=== PATIENT | male | born 1945 | race African-American/Black ===

== ENCOUNTER 2018-04-27 16:04 | Inpatient (IN) | payer OTHER ==
--- NOTE | 2018-04-27 16:57 | PDOC ---
History of Present Illness - General Chief Complaint: Wound Stated Complaint: WOUND Time Seen by Provider: 04/27/18 16:49 History Source: Patient, Jail Records, Other (Dr. Mooney) Exam Limitations: No Limitations - History of Present Illness Initial Comments: HPI: 72 y/o male presenting to [facility] ER on referral from Dr. Mooney with concern for gangrenous infection to first toe of right foot. Written orders requesting admission to Dr. Wilson service with consultation to Drs. Loyola and Lily. Pt endorses pain to the area made worse with movement of the toe. States symptoms started approx. 1 month ago and has progressively worsened. H/o of gout in the toe. Denies fevers or chills. Was evaluated at [facility] for right ankle swelling and pain to right first toe. Found to be febrile and tachycardic. Received IV antibiotics. Unknown hospital course. Pt currently a resident at [facility] PCP: Dr. Seymour [facility] Hx: - CKD s/p renal transplant, on Tacrolimus - A-fib, on ASA, Plavix, and Coumadin. Coumadin held this morning and pt received PO Vit. K - HIV, last viral load zero. Unknown CD4 count. - Gout on Allopurinol - DM - HIV - Carotid plaque - PAD s/p stenting, location unknown Past History - Past Medical History Allergies/Adverse Reactions: Allergies Allergy/AdvReac Type Severity Reaction Status Date / Time No Known Allergies Allergy Verified 04/27/18 16:26 Home Medications: Ambulatory Orders Allopurinol [Zyloprim -] 100 mg PO DAILY 04/27/18 Aspirin [ASA -] 81 mg PO DAILY 04/27/18 Atorvastatin Ca [Lipitor] 80 mg PO HS 04/27/18 Brimonidine Tartrate [Alphagan 0.2% -] 1 drop BID 04/27/18 Cinacalcet HCl [Sensipar] 60 mg PO DAILY 04/27/18 Clopidogrel Bisulfate [Plavix] 75 mg PO DAILY 04/27/18 Docusate Sodium [Colace] 100 mg PO BID 04/27/18 Emtricitabine/Tenofov Alafenam [Descovy 200-25 mg Tablet (Nf)] 1 each PO DAILY 04/27/18 Ezetimibe 10 mg PO DAILY 04/27/18 Latanoprost 0.005% Eye Drops [Xalatan 0.005% Eye Drops -] 1 drop HS 04/27/18 Losartan Potassium 25 mg PO DAILY 04/27/18 Megestrol Acetate 20 ml PO DAILY 04/27/18 Metoprolol Tartrate [Lopressor] 25 mg PO BID 04/27/18 Mycophenolate Mofetil 1,000 mg PO BID 04/27/18 Nifedipine ER [Procardia Xl -] 60 mg PO DAILY 04/27/18 Paricalcitol 1 mcg PO DAILY 04/27/18 Raltegravir [Isentress -] 400 mg PO BID 04/27/18 Tacrolimus [Astagraf Xl] 5 mg PO DAILY 04/27/18 Tacrolimus [Envarsus Xr] 4 mg PO DAILY 04/27/18 Cardiac Disorders: Yes (CAD) COPD: No HTN: Yes Other medical history: GOUT - Suicide/Smoking/Psychosocial Hx Smoking History: Former smoker Have you smoked in the past 12 months: No Information on smoking cessation initiated: No Hx Alcohol Use: No Drug/Substance Use Hx: No Review of Systems - Review of Systems Able to Perform ROS?: Yes Comments:: In addition to that documented in the HPI above, the additional ROS was obtained : Constitutional: Denies fevers or chills ENMT: Denies sore throat CV: Denies chest pain Resp: Denies SOB GI: Denies vomiting or diarrhea MSK: Per HPI *Physical Exam - Vital Signs Last Vital Signs Temp Pulse Resp BP Pulse Ox 98.8 F 82 18 121/57 L 99 04/27/18 16:20 04/27/18 16:20 04/27/18 16:20 04/27/18 16:20 04/27/18 16:20 - Physical Exam Comments: Constitutional: Non-toxic adult male in no acute distress or obvious discomfort. Found semi-fowlers. Alert and oriented x4. Answered all questions appropriately and completely. Speech was non-labored, non-pressured. Head: Normocephalic. No obvious external signs of trauma. Ears: Hearing grossly intact. Nose: No nasal discharge. Neck: Supple, trachea is midline. Cardiovascular / Chest: Irregularly irregular rate and rhythm. No murmur, rubs, clicks, or gallops. Peripheral pulses: radial pulses full. Respiratory: Breathing unlabored. Equal chest rise and fall. Clear to auscultation bilaterally. No stridor, no wheezing, no rhonchi. Neuro: Alert and oriented. Moving all four extremities spontaneously. Ext: Black necrotic tissue to tip of right great toe with proximal circular ring of devitalized tissue with purulent discharge. No erythema or cellulitic lesions. Tender to palpation. Foot with 2+ pitting edema. No porter crepitus. Psych: Affect: appropriate. Mood: normal. Moderate Sedation - Procedure Monitoring Vital Signs: Procedure Monitoring Vital Signs Temperature 98.8 F 04/27/18 16:20 Pulse Rate 82 04/27/18 16:20 Respiratory Rate 18 04/27/18 16:20 Blood Pressure 121/57 L 04/27/18 16:20 O2 Sat by Pulse Oximetry (%) 99 04/27/18 16:20 ED Treatment Course - LABORATORY CBC & Chemistry Diagram: 04/27/18 17:50 04/27/18 17:50 Medical Decision Making - Medical Decision Making *Reviewed vital signs, nursing notes, and prior visit documentation (if available). 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 Physical exam concerning for possible gangrenous versus necrotic wound to right great toe. Afebrile. Vitals unremarkable for hypotension or tachycardia. Low suspicion for sepsis. Pt is on Tacrolimus s/p renal transplant. Also HIV positive with reported zero viral load but unknown CD4 count. Telephone consult with . Requested CBC, ESR, CRP, xray of extremity , blood culture, wound culture, ID consult with Dr. Loyola, and vascular consult with Dr. Bautista. Pt to be admitted to Dr. Wilson service. 17:[address] Loyola of infectious disease service. Verbally appraised of the pts HPI, ED course, and current plan of management. Recommended Vancomycin 1g, Clindamycin 300mg q6h, Zosyn 4.5mg q8h. Also requested CD4 count and CT scan of the extremity. Will follow up labs and evaluate pt in the morning. CT of extremity remarkable for soft tissue air or gas accumulation of level of tuft of distal phalanx of the right first toe. Ordered lactic acid to further evaluate. Will obtain repeat vitals. 20:21 Second telephone conversation with Dr. Stephanian to provide interval updates. Reports ESR, CRP, WBC, and CT results. States the subcutaneous accumulation is likely air as pt does not have a fever or leukocytosis. Requests continuation of antibiotic therapy. Will evaluate the pt in the morning. 21:[address] Morris. Verbally appraised of the pts HPI, ED course, and current plan of management. Agreed to admit pt to med/surg on inpatient status. No additional ordered requested. 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
[2018-04-27] MEDS ORDERED: VANCOMYCIN 1 GM in D5W (PRE-DOCKED) 1,000 MG/250 ML IVPB ONE (17:47)
[2018-04-27] MEDS ORDERED: CLINDAMYCIN IVPB 300 MG in DEXTROSE 5%-WATER - 48 ML IVPB SCH (18:00)
[2018-04-27] MEDS: PIPERACILLIN/TAZOB 4.5 GM 4.5 GM in DEXTROSE 5%-WATER 100 ML IVPB SCH (18:00)
[2018-04-27] MEDS ORDERED: PIPERACILLIN/TAZOB 4.5 GM 4.5 GM/100 ML BAG IVPB ONE (18:04)
[2018-04-27] MEDS ORDERED: VANCOMYCIN 1 GRAM (PRE-DOCKED) 1,000 MG/250 ML BAG IVPB ONE (18:05)
[2018-04-27 18:16] LABS: BASO % 0.4 % (0-2.0); EOS % 0.6 % (0-4.5); HEMATOCRIT 29.6 % (35.4-49); HEMOGLOBIN 9.5 GM/dL (11.7-16.9); MCH 27.5 pg (25.7-33.7); MCHC 32.3 g/dl (32.0-35.9); MEAN CELL VOLUME 85.2 fl (80-96); MEAN PLT VOLUME 10.8 fl (7.5-11.1); MONO % 22.6 % (3.8-10.2); NEUT % 49.4 % (42.8-82.8); PLATELET COUNT 237 K/MM3 (134-434); RBC 3.47 M/mm3 (4.00-5.60); WHITE BLOOD COUNT 3.5 K/mm3 (4.0-10.0)
--- NOTE | 2018-04-27 18:38 | PDOC ---
Attending Attestation - Resident Resident Name: BeltranBrian - ED Attending Attestation I have performed the following: I have examined & evaluated the patient, The case was reviewed & discussed with the resident, I agree w/resident's findings & plan, Exceptions are as noted - HPI HPI: 04/27/18 18:34 72 M with h/o afib on eliquis, HIV on HAART, DM, HTN, kidney transplant, PVD s/ p LE stenting, gout, presenting to ED with infected wound of R great toe. [facility] Sent in today for IV abx and vascular/podiatry/ID consultation. Pt denies any acute changes. Denies F/C. - Physicial Exam PE: 04/27/18 18:38 Agree with resident exam - Medical Decision Making 04/27/18 18:38 72 M with gangrenous, infected R great toe. - Labs - Abx - Consult ID/vascular/podiatry - Admit
[2018-04-27 18:47] LABS: ALBUMIN 3.2 g/dl (3.4-5.0); ALK PHOS 61 U/L (45-117); ANION GAP 8 MMOL/L (8-16); BILIRUBIN,TOTAL 0.4 mg/dL (0.2-1); BLOOD UREA NITROGEN 26 mg/dL (7-18); CALCIUM 9.3 mg/dL (8.5-10.1); CHLORIDE 110 mmol/L (98-107); CO2 21 mmol/L (21-32); CREATININE 1.4 mg/dL (0.55-1.3); GLUCOSE,RANDOM 105 mg/dL (74-106); POTASSIUM 4.8 mmol/L (3.5-5.1); SGOT/AST 12 U/L (15-37); SGPT/ALT 10 U/L (13-61); SODIUM 140 mmol/L (136-145); TOT PROT 7.2 g/dl (6.4-8.2)
[2018-04-27 19:06] LABS: INR 1.21 (0.83-1.09); PROTHROMBIN TIME (PATIENT) 14.3 SEC (9.7-13.0)
[2018-04-27 19:39] LABS: PLATELET ESTIMATE ADEQUATE
[2018-04-27] MEDS: CLINDAMYCIN 300 MG PREMIX IVPB 300 MG/50 ML BAG IVPB SCH ×2 (19:59→23:38)
[2018-04-28] MEDS ORDERED: PIPERACILLIN/TAZOBACTAM 4.5 GM VIAL IVPB ONE ×3 (01:54→16:12)
[2018-04-28] MEDS ORDERED: DEXTROSE 5%-WATER 100 ML IVPB ONE ×3 (01:54→16:13)
[2018-04-28] MEDS: PIPERACILLIN/TAZOB 4.5 GM 4.5 GM in DEXTROSE 5%-WATER 100 ML IVPB SCH ×3 (02:07→18:09)
[2018-04-28] MEDS: CLINDAMYCIN 300 MG PREMIX IVPB 300 MG/50 ML BAG IVPB SCH ×2 (02:38→09:34)
[2018-04-28 07:37] LABS: BASO % 0.2 % (0-2.0); EOS % 1.1 % (0-4.5); HEMATOCRIT 28.8 % (35.4-49); HEMOGLOBIN 9.2 GM/dL (11.7-16.9); LYMPH % 30.9 % (8-40); MCH 27.2 pg (25.7-33.7); MCHC 31.8 g/dl (32.0-35.9); MEAN CELL VOLUME 85.5 fl (80-96); MEAN PLT VOLUME 10.4 fl (7.5-11.1); MONO % 27.6 % (3.8-10.2); NEUT % 40.2 % (42.8-82.8); PLATELET COUNT 240 K/MM3 (134-434); RBC 3.37 M/mm3 (4.00-5.60); RDW 18.2 % (11.9-15.9); WHITE BLOOD COUNT 3.3 K/mm3 (4.0-10.0)
[2018-04-28 08:02] LABS: ALBUMIN 2.9 g/dl (3.4-5.0); ALK PHOS 54 U/L (45-117); ANION GAP 8 MMOL/L (8-16); BILIRUBIN,TOTAL 0.5 mg/dL (0.2-1); BLOOD UREA NITROGEN 25 mg/dL (7-18); CALCIUM 9.1 mg/dL (8.5-10.1); CHLORIDE 109 mmol/L (98-107); CO2 21 mmol/L (21-32); CREATININE 1.4 mg/dL (0.55-1.3); GLUCOSE,RANDOM 86 mg/dL (74-106); POTASSIUM 4.5 mmol/L (3.5-5.1); SGOT/AST 11 U/L (15-37); SGPT/ALT 9 U/L (13-61); SODIUM 138 mmol/L (136-145); TOT PROT 6.6 g/dl (6.4-8.2)
[2018-04-28] MEDS ORDERED: PT OWN MED DRAWER 7, Y5N ONE ×2 (09:06→12:15)
[2018-04-28] MEDS: BRIMONIDINE TARTRATE 0.2% OPHTHALMIC 5 ML BOTTLE OD SCH ×2 (09:44→21:05)
[2018-04-28] MEDS: CINACALCET HCL 30 MG TAB (FP) PO SCH (09:45)
[2018-04-28] MEDS: CLOPIDOGREL BISULFATE 75 MG TABLET (FP) PO SCH (09:46)
[2018-04-28] MEDS: DOCUSATE SODIUM 100 MG CAPSULE (FP) PO SCH ×2 (09:46→21:04)
[2018-04-28] MEDS: ASPIRIN 81 MG CHEWABLE TABLETS PO SCH (09:46)
[2018-04-28] MEDS: METOPROLOL TARTRATE 50 MG TABLET (FP) PO SCH ×2 (09:46→21:03)
[2018-04-28] MEDS: LOSARTAN POTASSIUM 25 MG TABLET PO SCH (09:48)
[2018-04-28] MEDS: ALLOPURINOL 100 MG TABLET (FP) PO SCH (09:48)
[2018-04-28] MEDS: HEPARIN NA (PORCINE) 5,000 UNITS/ML 1ML VIAL SQ SCH ×3 (09:48→21:02)
[2018-04-28] MEDS: NIFEdipine E.R 60 MG TABLET (UD) PO SCH (09:49)
[2018-04-28] MEDS ORDERED: PATIENT'S OWN MEDICATION (NON-FORMULARY) (Emtricitabine/Tenofov Alafenam [Descovy 200-25 M PO SCH (10:00)
--- NOTE | 2018-04-28 10:58 | CONSULT ---
Consult Consult Specialty:: podiatry Reason for Consultation:: gangarene right big toe - History of Present Illness Chief Complaint: gangarene right big toe - History Source History Provided By: Medical Record, Caregiver, Transfer Record - Alcohol/Substance Use Hx Alcohol Use: No - Smoking History Smoking history: Former smoker Have you smoked in the past 12 months: No Home Medications - Allergies Allergies/Adverse Reactions: Allergies Allergy/AdvReac Type Severity Reaction Status Date / Time shellfish derived Allergy Verified 04/28/18 04:57 - Home Medications Home Medications: Ambulatory Orders Allopurinol [Zyloprim -] 100 mg PO DAILY 04/27/18 Aspirin [ASA -] 81 mg PO DAILY 04/27/18 Atorvastatin Ca [Lipitor] 80 mg PO HS 04/27/18 Brimonidine Tartrate [Alphagan 0.2% -] 1 drop BID 04/27/18 Cinacalcet HCl [Sensipar] 60 mg PO DAILY 04/27/18 Clopidogrel Bisulfate [Plavix] 75 mg PO DAILY 04/27/18 Docusate Sodium [Colace] 100 mg PO BID 04/27/18 Emtricitabine/Tenofov Alafenam [Descovy 200-25 mg Tablet (Nf)] 1 each PO DAILY 04/27/18 Ezetimibe 10 mg PO DAILY 04/27/18 Latanoprost 0.005% Eye Drops [Xalatan 0.005% Eye Drops -] 1 drop HS 04/27/18 Losartan Potassium 25 mg PO DAILY 04/27/18 Megestrol Acetate 20 ml PO DAILY 04/27/18 Metoprolol Tartrate [Lopressor] 25 mg PO BID 04/27/18 Mycophenolate Mofetil 1,000 mg PO BID 04/27/18 Nifedipine ER [Procardia Xl -] 60 mg PO DAILY 04/27/18 Paricalcitol 1 mcg PO DAILY 04/27/18 Raltegravir [Isentress -] 400 mg PO BID 04/27/18 Tacrolimus [Prograf] 4 mg PO DAILY 04/28/18 Tacrolimus [Prograf] 5 mg PO DAILY 04/28/18 Physical Exam Vital Signs: Vital Signs Temperature 98.6 F 04/28/18 05:44 Pulse Rate 83 04/28/18 05:44 Respiratory Rate 16 04/28/18 05:44 Blood Pressure 141/80 04/28/18 05:44 O2 Sat by Pulse Oximetry (%) 98 04/28/18 01:00 Wound/Incision: Yes: Other (+gangarene right big toe, +cellulitis, +mal odor,) Labs: CBC, BMP 04/28/18 06:30 04/28/18 06:30 Imaging - Results X-ray: Report Reviewed, Image Reviewed Cat Scan: Report Reviewed Assessment/Plan gangarene pvd Discussed with Dr. Solorio. Will clear patient after duplex study for amputation right great toe and wound debridement. awaiting clearance. betadine dressing right foot.
[2018-04-28 11:11] LABS: ANISOCYTOSIS 2+; MACROCYTOSIS 0; PLATELET ESTIMATE NORMAL; TEAR DROP CELLS 1+
[2018-04-28] MEDS: MYCOPHENOLATE MOFETIL 500 MG TABLET PO SCH ×2 (11:37→21:04)
[2018-04-28] MEDS: PARICALCITOL 1 MCG CAP PO SCH (11:37)
[2018-04-28] MEDS: MEGESTROL ACETATE 400 MG/10 ML UNIT DOSE CUP PO SCH (11:39)
[2018-04-28] MEDS: EZETIMIBE 10 MG TABLET (FP) PO SCH (11:39)
--- NOTE | 2018-04-28 11:53 | CON.ID ---
Consult Consult Specialty:: infectious diseases Referred by:: Reason for Consultation:: gzngrene of the toe with wound infection - History of Present Illness Chief Complaint: pain in the toe History of Present Illness: 72 year old male who was sent in for right great toe infection. He is a poor historian. He has history of CKD, kidney transplant, a-fib, HIV, DM, HTN, gout and PVD. He denies shortness of breath. he denies fevers or chill. He does not know the names of his transplant meds. He denies dysuria or hematuria. patient also does not know his hiv meds patient was seen by podiatry and the plan is for amputation of the toe currently patient looks s table - History Source History Provided By: Patient, Medical Record Limitations to Obtaining History: Poor Historian - Alcohol/Substance Use Hx Alcohol Use: No - Smoking History Smoking history: Former smoker Have you smoked in the past 12 months: No Home Medications - Allergies Allergies/Adverse Reactions: Allergies Allergy/AdvReac Type Severity Reaction Status Date / Time shellfish derived Allergy Verified 04/28/18 04:57 - Home Medications Home Medications: Ambulatory Orders Allopurinol [Zyloprim -] 100 mg PO DAILY 04/27/18 Aspirin [ASA -] 81 mg PO DAILY 04/27/18 Atorvastatin Ca [Lipitor] 80 mg PO HS 04/27/18 Brimonidine Tartrate [Alphagan 0.2% -] 1 drop BID 04/27/18 Cinacalcet HCl [Sensipar] 60 mg PO DAILY 04/27/18 Clopidogrel Bisulfate [Plavix] 75 mg PO DAILY 04/27/18 Docusate Sodium [Colace] 100 mg PO BID 04/27/18 Emtricitabine/Tenofov Alafenam [Descovy 200-25 mg Tablet (Nf)] 1 each PO DAILY 04/27/18 Latanoprost 0.005% Eye Drops [Xalatan 0.005% Eye Drops -] 1 drop HS 04/27/18 Metoprolol Tartrate [Lopressor] 25 mg PO BID 04/27/18 Nifedipine ER [Procardia Xl -] 60 mg PO DAILY 04/27/18 RX: Ezetimibe 10 mg PO DAILY 04/27/18 RX: Losartan Potassium 25 mg PO DAILY 04/27/18 RX: Megestrol Acetate 20 ml PO DAILY 04/27/18 RX: Mycophenolate Mofetil 1,000 mg PO BID 04/27/18 RX: Paricalcitol 1 mcg PO DAILY 04/27/18 Raltegravir [Isentress -] 400 mg PO BID 04/27/18 Tacrolimus [Prograf] 4 mg PO DAILY 04/28/18 Tacrolimus [Prograf] 5 mg PO DAILY 04/28/18 Review of Systems - Review of Systems Constitutional: reports: No Symptoms Eyes: reports: No Symptoms HENT: reports: No Symptoms Neck: reports: No Symptoms Cardiovascular: reports: No Symptoms Respiratory: reports: No Symptoms Gastrointestinal: reports: No Symptoms Genitourinary: reports: No Symptoms Musculoskeletal: reports: Joint Pain Integumentary: reports: Change in Color, Erythema, Wound, Other (gangrene rt toe ) Neurological: reports: No Symptoms Endocrine: reports: No Symptoms Hematology/Lymphatic: reports: No Symptoms Psychiatric: reports: No Symptoms Physical Exam Vital Signs: Vital Signs Temperature 97.4 F L 04/28/18 09:00 Pulse Rate 89 04/28/18 09:00 Respiratory Rate 18 04/28/18 09:00 Blood Pressure 136/74 04/28/18 09:00 O2 Sat by Pulse Oximetry (%) 98 04/28/18 01:00 Constitutional: Yes: Well Nourished, Calm, Mild Distress Eyes: Yes: Conjunctiva Clear HENT: Yes: Atraumatic, Normocephalic Neck: Yes: Supple, Trachea Midline Cardiovascular: Yes: Pulse Irregular Respiratory: Yes: Regular, CTA Bilaterally Gastrointestinal: Yes: Normal Bowel Sounds, Soft Musculoskeletal: Yes: WNL Extremities: Yes: Erythema, Other (gangrene of the rt toe) Wound/Incision: Yes: Open to air Neurological: Yes: Alert, Oriented Psychiatric: Yes: Alert, Oriented Labs: CBC, BMP 04/28/18 06:30 04/28/18 06:30 Imaging - Results Chest X-ray: Report Reviewed, Image Reviewed X-ray: Report Reviewed, Image Reviewed Cat Scan: Report Reviewed, Image Reviewed Assessment/Plan CKD kidney tranplant HIV HTN . DM cad HLD plan will start patient on abx patient will need amputation await for all cx reports will get his hiv meds--d/w pharmacy rest as per the team and podiatry
[2018-04-28] MEDS: RALTEGRAVIR POTASSIUM 400 MG TAB PO SCH ×2 (12:17→21:04)
[2018-04-28] MEDS: TACROLIMUS ANHYDROUS 5 MG CAPSULE PO SCH (12:17)
[2018-04-28] MEDS: EMTRICITABINE/TENOFOV ALAFENAM (DESCOVY) TABLET PO SCH (16:01)
--- NOTE | 2018-04-28 16:40 | CONSULT ---
Consult Consult Specialty:: Nephrology Reason for Consultation:: kidney transplant - History of Present Illness Chief Complaint: sent in for right foot infection History of Present Illness: Pt is a 72 year old male who was sent in for right great toe infection. He is a poor historian. He has history of CKD, kidney transplant, a-fib, HIV, DM, HTN, gout and PVD. He denies shortness of breath. he denies fevers or chill. he follows with a transplant healthcare financial analyst in [facility]. He does not know the names of his transplant meds. He denies dysuria or hematuria. - History Source History Provided By: Patient, Medical Record Limitations to Obtaining History: Poor Historian - Past Medical History Cardio/Vascular: Yes: HTN, Hyperlipdemia Renal/: Yes: Renal Inusuff, Other (kidney transplant) Infectious Disease: Yes: HIV - Past Surgical History Past Surgical History: Yes: AV Fistula/Graft, Kidney Transplant - Alcohol/Substance Use Hx Alcohol Use: No - Smoking History Smoking history: Former smoker Have you smoked in the past 12 months: No Home Medications - Allergies Allergies/Adverse Reactions: Allergies Allergy/AdvReac Type Severity Reaction Status Date / Time shellfish derived Allergy Verified 04/28/18 04:57 - Home Medications Home Medications: Ambulatory Orders Allopurinol [Zyloprim -] 100 mg PO DAILY 04/27/18 Aspirin [ASA -] 81 mg PO DAILY 04/27/18 Atorvastatin Ca [Lipitor] 80 mg PO HS 04/27/18 Brimonidine Tartrate [Alphagan 0.2% -] 1 drop BID 04/27/18 Cinacalcet HCl [Sensipar] 60 mg PO DAILY 04/27/18 Clopidogrel Bisulfate [Plavix] 75 mg PO DAILY 04/27/18 Docusate Sodium [Colace] 100 mg PO BID 04/27/18 Emtricitabine/Tenofov Alafenam [Descovy 200-25 mg Tablet (Nf)] 1 each PO DAILY 04/27/18 Ezetimibe 10 mg PO DAILY 04/27/18 Latanoprost 0.005% Eye Drops [Xalatan 0.005% Eye Drops -] 1 drop HS 04/27/18 Losartan Potassium 25 mg PO DAILY 04/27/18 Megestrol Acetate 20 ml PO DAILY 04/27/18 Metoprolol Tartrate [Lopressor] 25 mg PO BID 04/27/18 Mycophenolate Mofetil 1,000 mg PO BID 04/27/18 Nifedipine ER [Procardia Xl -] 60 mg PO DAILY 04/27/18 Paricalcitol 1 mcg PO DAILY 04/27/18 Raltegravir [Isentress -] 400 mg PO BID 04/27/18 Tacrolimus [Prograf] 4 mg PO DAILY 04/28/18 Tacrolimus [Prograf] 5 mg PO DAILY 04/28/18 Family Disease History - Family Disease History Family History: Denies Review of Systems - Review of Systems Constitutional: reports: No Symptoms Eyes: reports: No Symptoms HENT: reports: No Symptoms Neck: reports: No Symptoms Cardiovascular: reports: No Symptoms Respiratory: reports: No Symptoms Gastrointestinal: reports: No Symptoms Genitourinary: reports: No Symptoms Musculoskeletal: reports: No Symptoms Integumentary: reports: Other (right toe erythema) Neurological: reports: No Symptoms Endocrine: reports: No Symptoms Hematology/Lymphatic: reports: No Symptoms Psychiatric: reports: No Symptoms Physical Exam Vital Signs: Vital Signs Temperature 98.1 F 04/28/18 14:42 Pulse Rate 83 04/28/18 14:42 Respiratory Rate 18 04/28/18 14:42 Blood Pressure 120/60 04/28/18 14:42 O2 Sat by Pulse Oximetry (%) 100 04/28/18 10:00 Constitutional: Yes: Calm Eyes: Yes: Conjunctiva Clear HENT: Yes: Atraumatic Neck: Yes: Supple Cardiovascular: Yes: S1, S2 Respiratory: Yes: CTA Bilaterally Gastrointestinal: Yes: Soft Renal/: Yes: WNL, Other (graft soft and non tender) Musculoskeletal: Yes: WNL Extremities: Yes: Other (right toe ulcer) Edema: No Neurological: Yes: Oriented Psychiatric: Yes: Oriented Labs: CBC, BMP 04/28/18 06:30 04/28/18 06:30 Laboratory Tests 04/27/18 04/27/18 04/28/18 17:50 17:50 06:30 WBC 3.5 L 3.3 L Hgb 9.5 L 9.2 L Plt Count 237 240 Sodium Potassium BUN 26 H Creatinine 1.4 H 04/28/18 06:30 WBC Hgb Plt Count Sodium 138 Potassium 4.5 BUN 25 H Creatinine 1.4 H Imaging - Results Cat Scan: Report Reviewed Problem List - Problems (1) CKD (chronic kidney disease) Code(s): N18.9 - CHRONIC KIDNEY DISEASE, UNSPECIFIED Assessment/Plan Current Medications Generic Name Dose Route Start Last Admin Trade Name Etta PRN Reason Stop Dose Admin Allopurinol 100 mg 04/28/18 10:00 04/28/18 09:48 Zyloprim - PO 100 mg DAILY CLAUDE Administration Aspirin 81 mg 04/28/18 10:00 04/28/18 09:46 Asa - PO 81 mg DAILY CLAUDE Administration Atorvastatin Calcium 80 mg 04/28/18 22:00 Lipitor - PO HS CLAUDE Brimonidine Tartrate 1 drop 04/28/18 10:00 04/28/18 09:44 Alphagan 0.2% - OD 1 drop BID CLAUDE Administration Cinacalcet 60 mg 04/28/18 10:00 04/28/18 09:45 Sensipar - PO 60 mg DAILY CLAUDE Administration Clopidogrel Bisulfate 75 mg 04/28/18 10:00 04/28/18 09:46 Plavix - PO 75 mg DAILY CLAUDE Administration Docusate Sodium 100 mg 04/28/18 10:00 04/28/18 09:46 Colace - PO 100 mg BID CLAUDE Administration Ezetimibe 10 mg 04/28/18 10:00 04/28/18 11:39 Zetia - PO 10 mg DAILY CLAUDE Administration Heparin Sodium (Porcine) 5,000 unit 04/28/18 10:00 04/28/18 12:13 Heparin - SQ Not Given BID CLAUDE Piperacillin Sod/Tazobactam 100 mls @ 200 mls/hr 04/27/18 18:00 04/28/18 10: 15 Sod 4.5 gm/ Dextrose IVPB 200 mls/hr Q8H-IV CLAUDE Administration Protocol Latanoprost 1 drop 04/28/18 22:00 Xalatan 0.005% Eye Drops - OD HS CLAUDE Losartan Potassium 25 mg 04/28/18 10:00 04/28/18 09:48 Cozaar - PO 25 mg DAILY CLAUDE Administration Megestrol Acetate 800 mg 04/28/18 10:00 04/28/18 11:39 Megace Oral Suspension - PO 800 mg DAILY CLAUDE Administration Metoprolol Tartrate 25 mg 04/28/18 10:00 04/28/18 09:46 Lopressor - PO 25 mg BID CLAUDE Administration Mycophenolate Mofetil 1,000 mg 04/28/18 10:00 04/28/18 11:37 Cellcept - PO 1,000 mg BID CLAUDE Administration Nifedipine 60 mg 04/28/18 10:00 04/28/18 09:49 Procardia Xl - PO 60 mg DAILY CLAUDE Administration Paricalcitol 1 mcg 04/28/18 10:00 04/28/18 11:37 Zemplar - PO 1 mcg DAILY CLAUDE Administration Raltegravir 400 mg 04/28/18 10:00 04/28/18 12:17 Isentress - PO 400 mg BID CLAUDE Administration Tacrolimus 5 mg 04/28/18 10:30 04/28/18 12:17 Prograf PO 5 mg AM CLAUDE Administration Tacrolimus 4 mg 04/28/18 22:00 Prograf PO HS CLAUDE Impression 1. CKD 2. kidney tranplant 3. HIV 4. HTN 5. DM 6. cad 7. HLD Plan - will start gentle hydration - repeat labs in am - check ua and lytes - check renal ultrasound - cont prograf and mmf - check prograf level - ID eval
[2018-04-28] MEDS ORDERED: SODIUM CHLORIDE 0.45% 1,000 ML IV SCH (16:45)
--- NOTE | 2018-04-28 17:38 | PN ---
Progress Note (short form) - Note Progress Note: consult dictated. 72 yo man well known to me. HIV+, renal transplant. Had CO2 angiogram and extensive right leg stenting one month ago. 1st toe gangrene now infected. ordered arterial duplex of right leg
--- NOTE | 2018-04-28 18:15 | CONS ---
DATE OF CONSULTATION: 04/28/2018 REQUESTING PHYSICIAN: CONSULTING PHYSICIAN: Terrence Cervantes M.D. TYPE OF CONSULT: Vascular surgery. CHIEF COMPLAINT: Infected toe gangrene. HISTORY OF PRESENT ILLNESS: This 89-year-old male with a history of being HIV positive and renal transplant. He is status post right leg angiogram, right lower extremity stenting from the iliac and femoral popliteal segments a month ago. He was admitted for infection of the gangrene and first toe. PAST MEDICAL HISTORY: As per HPI as well as atrial fibrillation on Coumadin, gout, diabetes. PAST SURGICAL HISTORY: As per HPI. FAMILY HISTORY: Reviewed, noncontributory. SOCIAL HISTORY: Lives in [facility]. ALLERGIES: SHELLFISH. MEDICATION: Reviewed, include Coumadin. REVIEW OF SYSTEMS: 12 system review except as above is negative. PHYSICAL EXAMINATION: Vital signs: Afebrile. Vital signs stable. General: In no acute distress. HEENT: Normocephalic, atraumatic. Neck: Supple. Heart: S1, S2. Lungs: Clear to auscultation bilaterally. Abdomen: Soft, nontender, nondistended. Extremities: Right lower extremity warm, slightly swollen. Pedal pulses difficult to feel through the swelling. The 1st toe is gangrenous, has a foul odor. LABORATORY RESULTS: White blood cell count 3.3, hemoglobin 9.2, platelets 240, INR 1.21, creatinine 1.4. IMAGING RESULTS: Reviewed. ASSESSMENT/PLAN: A 72-year-old man status post angiogram and stenting. Will order arterial duplex to check for patency of the stent. TERRENCE CERVANTES M.D. NISREEN/[id number]
--- NOTE | 2018-04-28 18:55 | HP ---
Admitting History and Physical - Past Medical History Cardiovascular: Yes: HTN, Hyperlipdemia Renal/: Yes: Renal Inusuff, Other (kidney transplant) Infectious Disease: Yes: HIV - Past Surgical History Past Surgical History: Yes: AV Fistula/Graft, Kidney Transplant - Smoking History Smoking history: Former smoker Have you smoked in the past 12 months: No - Alcohol/Substance Use Hx Alcohol Use: No Home Medications - Allergies Allergies/Adverse Reactions: Allergies Allergy/AdvReac Type Severity Reaction Status Date / Time shellfish derived Allergy Verified 04/28/18 04:57 - Home Medications Home Medications: Ambulatory Orders Allopurinol [Zyloprim -] 100 mg PO DAILY 04/27/18 Aspirin [ASA -] 81 mg PO DAILY 04/27/18 Atorvastatin Ca [Lipitor] 80 mg PO HS 04/27/18 Brimonidine Tartrate [Alphagan 0.2% -] 1 drop BID 04/27/18 Cinacalcet HCl [Sensipar] 60 mg PO DAILY 04/27/18 Clopidogrel Bisulfate [Plavix] 75 mg PO DAILY 04/27/18 Docusate Sodium [Colace] 100 mg PO BID 04/27/18 Emtricitabine/Tenofov Alafenam [Descovy 200-25 mg Tablet (Nf)] 1 each PO DAILY 04/27/18 Ezetimibe 10 mg PO DAILY 04/27/18 Latanoprost 0.005% Eye Drops [Xalatan 0.005% Eye Drops -] 1 drop HS 04/27/18 Losartan Potassium 25 mg PO DAILY 04/27/18 Megestrol Acetate 20 ml PO DAILY 04/27/18 Metoprolol Tartrate [Lopressor] 25 mg PO BID 04/27/18 Mycophenolate Mofetil 1,000 mg PO BID 04/27/18 Nifedipine ER [Procardia Xl -] 60 mg PO DAILY 04/27/18 Paricalcitol 1 mcg PO DAILY 04/27/18 Raltegravir [Isentress -] 400 mg PO BID 04/27/18 Tacrolimus [Prograf] 4 mg PO DAILY 04/28/18 Tacrolimus [Prograf] 5 mg PO DAILY 04/28/18 Physical Examination Vital Signs: Vital Signs Temperature 98.1 F 04/28/18 14:42 Pulse Rate 83 04/28/18 14:42 Respiratory Rate 18 04/28/18 14:42 Blood Pressure 120/60 04/28/18 14:42 O2 Sat by Pulse Oximetry (%) 100 04/28/18 10:00 Labs: CBC, BMP 04/28/18 06:30 04/28/18 06:30
[2018-04-28 18:56] LABS: URINE APPEARANCE CLEAR; URINE BILIRUBIN NEGATIVE (<2.0 mg/dL); URINE COLOR YELLOW; URINE GLUCOSE (UA) NEGATIVE (NEGATIVE); URINE KETONE NEGATIVE (NEGATIVE); URINE LEUK ESTERASE NEGATIVE (NEGATIVE); URINE NITRITE NEGATIVE (NEGATIVE); URINE PROTEIN 2+ (NEGATIVE); URINE UROBILINOGEN NEGATIVE mg/dL (0.2-1.0)
[2018-04-28 18:59] LABS: EPI CELLS RARE /HPF (FEW)
[2018-04-28] MEDS ORDERED: ACETAMINOPHEN 325 MG TABLET (FP) PO PRN (19:36)
[2018-04-28] MEDS: ACETAMINOPHEN 325 MG TABLET (FP) PO PRN (21:02)
[2018-04-28] MEDS: ATORVASTATIN CA 80 MG TABLET (FP) PO SCH (21:03)
[2018-04-28] MEDS: TACROLIMUS ANHYDROUS 1 MG CAPSULE PO SCH (21:04)
[2018-04-28] MEDS: LATANOPROST 0.005% OPHTH SOLN 2.5ML BOTTLE OD SCH (21:05)
[2018-04-29] MEDS ORDERED: PT OWN MED DRAWER 7, Y5N ONE ×4 (01:21→21:51)
[2018-04-29] MEDS ORDERED: PIPERACILLIN/TAZOBACTAM 4.5 GM VIAL IVPB ONE ×3 (01:22→18:23)
[2018-04-29] MEDS ORDERED: DEXTROSE 5%-WATER 100 ML IVPB ONE ×3 (01:22→18:23)
[2018-04-29] MEDS: PIPERACILLIN/TAZOB 4.5 GM 4.5 GM in DEXTROSE 5%-WATER 100 ML IVPB SCH ×3 (02:09→18:32)
[2018-04-29] MEDS: TACROLIMUS ANHYDROUS 5 MG CAPSULE PO SCH (06:03)
[2018-04-29 07:54] LABS: ANION GAP 8 MMOL/L (8-16); BLOOD UREA NITROGEN 24 mg/dL (7-18); CALCIUM 8.8 mg/dL (8.5-10.1); CHLORIDE 109 mmol/L (98-107); CO2 21 mmol/L (21-32); CREATININE 1.6 mg/dL (0.55-1.3); GLUCOSE,RANDOM 82 mg/dL (74-106); POTASSIUM 4.5 mmol/L (3.5-5.1); SODIUM 137 mmol/L (136-145)
--- NOTE | 2018-04-29 08:49 | PN ---
Progress Note (short form) - Note Progress Note: Patient seen in bed. vss, Tmax 98.4 +foul smelling gangrenous toe right hallux, +cellulitis, gangarene right hallux pvd Awaiting duplex study and vascular clearance. Betadine dressing change. Took off schedule today. Restarted diet. Will schedule for Wednesday. Abx as per ID. Will follow. Consent obtained. Patient fully understood all risks benefits and alternatives. Patient consented to surgery and was witnessed by nurse. Consented for toe amputation right big toe with debridement of bone and soft tissue. Please maximize for OR Wednesday.
[2018-04-29] MEDS: NIFEdipine E.R 60 MG TABLET (UD) PO SCH (11:16)
[2018-04-29] MEDS: CINACALCET HCL 30 MG TAB (FP) PO SCH (11:17)
[2018-04-29] MEDS: METOPROLOL TARTRATE 50 MG TABLET (FP) PO SCH ×2 (11:17→21:58)
[2018-04-29] MEDS: DOCUSATE SODIUM 100 MG CAPSULE (FP) PO SCH ×2 (11:17→21:58)
[2018-04-29] MEDS: EZETIMIBE 10 MG TABLET (FP) PO SCH (11:17)
[2018-04-29] MEDS: LOSARTAN POTASSIUM 25 MG TABLET PO SCH (11:17)
[2018-04-29] MEDS: ALLOPURINOL 100 MG TABLET (FP) PO SCH (11:17)
[2018-04-29] MEDS: MYCOPHENOLATE MOFETIL 500 MG TABLET PO SCH ×2 (11:20→22:08)
[2018-04-29] MEDS: EMTRICITABINE/TENOFOV ALAFENAM (DESCOVY) TABLET PO SCH (11:21)
[2018-04-29] MEDS: MEGESTROL ACETATE 400 MG/10 ML UNIT DOSE CUP PO SCH (11:22)
[2018-04-29] MEDS: RALTEGRAVIR POTASSIUM 400 MG TAB PO SCH ×2 (11:22→21:58)
[2018-04-29] MEDS: PARICALCITOL 1 MCG CAP PO SCH (11:23)
[2018-04-29] MEDS: BRIMONIDINE TARTRATE 0.2% OPHTHALMIC 5 ML BOTTLE OD SCH ×2 (11:31→21:58)
--- NOTE | 2018-04-29 11:38 | PN ---
Progress Note, Physician History of Present Illness: patient doing well no complaints awaiting for duplex surgery before amputation - Current Medication List Current Medications: Active Medications Acetaminophen (Tylenol -) 650 mg PO Q6H PRN PRN Reason: pain Last Admin: 04/28/18 21:02 Dose: 650 mg Allopurinol (Zyloprim -) 100 mg PO DAILY [facility] Last Admin: 04/29/18 11:17 Dose: 100 mg Aspirin (Asa -) 81 mg PO DAILY [facility] Last Admin: 04/28/18 09:46 Dose: 81 mg Atorvastatin Calcium (Lipitor -) 80 mg PO HS [facility] Last Admin: 04/28/18 21:03 Dose: 80 mg Brimonidine Tartrate (Alphagan 0.2% -) 1 drop OD BID [facility] Last Admin: 04/29/18 11:31 Dose: 1 drop Cinacalcet (Sensipar -) 60 mg PO DAILY [facility] Last Admin: 04/29/18 11:17 Dose: 60 mg Clopidogrel Bisulfate (Plavix -) 75 mg PO DAILY [facility] Last Admin: 04/28/18 09:46 Dose: 75 mg Docusate Sodium (Colace -) 100 mg PO BID [facility] Last Admin: 04/29/18 11:17 Dose: 100 mg Ezetimibe (Zetia -) 10 mg PO DAILY [facility] Last Admin: 04/29/18 11:17 Dose: 10 mg Heparin Sodium (Porcine) (Heparin -) 5,000 unit SQ BID [facility] Last Admin: 04/28/18 21:02 Dose: Not Given Piperacillin Sod/Tazobactam (Sod 4.5 gm/ Dextrose) 100 mls @ 200 mls/hr IVPB Q8H-IV [facility]; Protocol Last Admin: 04/29/18 11:18 Dose: 200 mls/hr Sodium Chloride (1/2 Normal Saline) 1,000 mls @ 50 mls/hr IV ASDIR [facility] Stop: 04/29/18 16:43 Last Admin: 04/28/18 18:08 Dose: 50 mls/hr Latanoprost (Xalatan 0.005% Eye Drops -) 1 drop OD HS [facility] Last Admin: 04/28/18 21:05 Dose: 1 drop Losartan Potassium (Cozaar -) 25 mg PO DAILY [facility] Last Admin: 04/29/18 11:17 Dose: 25 mg Megestrol Acetate (Megace Oral Suspension -) 800 mg PO DAILY [facility] Last Admin: 04/29/18 11:22 Dose: 800 mg Metoprolol Tartrate (Lopressor -) 25 mg PO BID [facility] Last Admin: 04/29/18 11:17 Dose: 25 mg Mycophenolate Mofetil (Cellcept -) 1,000 mg PO BID [facility] Last Admin: 04/29/18 11:20 Dose: 1,000 mg Nifedipine (Procardia Xl -) 60 mg PO DAILY [facility] Last Admin: 04/29/18 11:16 Dose: 60 mg Paricalcitol (Zemplar -) 1 mcg PO DAILY [facility] Last Admin: 04/29/18 11:23 Dose: 1 mcg Raltegravir (Isentress -) 400 mg PO BID [facility] Last Admin: 04/29/18 11:22 Dose: 400 mg Tacrolimus (Prograf) 5 mg PO AM [facility] Last Admin: 04/29/18 06:03 Dose: 5 mg Tacrolimus (Prograf) 4 mg PO HS [facility] Last Admin: 04/28/18 21:04 Dose: 4 mg - Objective Vital Signs: Vital Signs Temperature 97.3 F L 04/29/18 07:06 Pulse Rate 74 04/29/18 07:06 Respiratory Rate 20 04/29/18 07:06 Blood Pressure 105/63 04/29/18 07:06 O2 Sat by Pulse Oximetry (%) 100 04/28/18 21:00 Constitutional: Yes: No Distress, Calm Cardiovascular: Yes: Regular Rate and Rhythm Respiratory: Yes: Regular, CTA Bilaterally Gastrointestinal: Yes: Normal Bowel Sounds, Soft Musculoskeletal: Yes: Other Extremities: Yes: Other Integumentary: Yes: Erythema, Other (gangrene of he toe) Wound/Incision: Yes: Open to air, Other (gangrene) Neurological: Yes: Alert, Oriented Psychiatric: Yes: Alert, Oriented Labs: CBC, BMP 04/28/18 06:30 04/29/18 06:00 INR, PTT INR 1.21 (0.83-1.09) H 04/27/18 17:50 Assessment/Plan CKD kidney tranplant HIV HTN . DM cad HLD plan continue abx await for surgery rest as per the team
--- NOTE | 2018-04-29 11:52 | PN ---
Progress Note (short form) - Note Progress Note: awaiting results of arterial duplex to check patency of stents. scheduled for toe amputation on wednesday with podiatry. cleared from vascular point of view for toe amputation to control infection
--- NOTE | 2018-04-29 13:18 | PN ---
Progress Note, Physician History of Present Illness: Pt seen and examined at bedside. He is awake and alert. He denies fevers or chill. He denies dysuria. - Current Medication List Current Medications: Active Medications Acetaminophen (Tylenol -) 650 mg PO Q6H PRN PRN Reason: pain Last Admin: 04/28/18 21:02 Dose: 650 mg Allopurinol (Zyloprim -) 100 mg PO DAILY [facility] Last Admin: 04/29/18 11:17 Dose: 100 mg Aspirin (Asa -) 81 mg PO DAILY [facility] Last Admin: 04/28/18 09:46 Dose: 81 mg Atorvastatin Calcium (Lipitor -) 80 mg PO HS [facility] Last Admin: 04/28/18 21:03 Dose: 80 mg Brimonidine Tartrate (Alphagan 0.2% -) 1 drop OD BID [facility] Last Admin: 04/29/18 11:31 Dose: 1 drop Cinacalcet (Sensipar -) 60 mg PO DAILY [facility] Last Admin: 04/29/18 11:17 Dose: 60 mg Clopidogrel Bisulfate (Plavix -) 75 mg PO DAILY [facility] Last Admin: 04/28/18 09:46 Dose: 75 mg Docusate Sodium (Colace -) 100 mg PO BID [facility] Last Admin: 04/29/18 11:17 Dose: 100 mg Ezetimibe (Zetia -) 10 mg PO DAILY [facility] Last Admin: 04/29/18 11:17 Dose: 10 mg Heparin Sodium (Porcine) (Heparin -) 5,000 unit SQ BID [facility] Last Admin: 04/28/18 21:02 Dose: Not Given Piperacillin Sod/Tazobactam (Sod 4.5 gm/ Dextrose) 100 mls @ 200 mls/hr IVPB Q8H-IV [facility]; Protocol Last Admin: 04/29/18 11:18 Dose: 200 mls/hr Sodium Chloride (1/2 Normal Saline) 1,000 mls @ 50 mls/hr IV ASDIR [facility] Stop: 04/29/18 16:43 Last Admin: 04/28/18 18:08 Dose: 50 mls/hr Latanoprost (Xalatan 0.005% Eye Drops -) 1 drop OD HS [facility] Last Admin: 04/28/18 21:05 Dose: 1 drop Losartan Potassium (Cozaar -) 25 mg PO DAILY [facility] Last Admin: 04/29/18 11:17 Dose: 25 mg Megestrol Acetate (Megace Oral Suspension -) 800 mg PO DAILY [facility] Last Admin: 04/29/18 11:22 Dose: 800 mg Metoprolol Tartrate (Lopressor -) 25 mg PO BID [facility] Last Admin: 04/29/18 11:17 Dose: 25 mg Mycophenolate Mofetil (Cellcept -) 1,000 mg PO BID [facility] Last Admin: 04/29/18 11:20 Dose: 1,000 mg Nifedipine (Procardia Xl -) 60 mg PO DAILY [facility] Last Admin: 04/29/18 11:16 Dose: 60 mg Paricalcitol (Zemplar -) 1 mcg PO DAILY [facility] Last Admin: 04/29/18 11:23 Dose: 1 mcg Raltegravir (Isentress -) 400 mg PO BID [facility] Last Admin: 04/29/18 11:22 Dose: 400 mg Tacrolimus (Prograf) 5 mg PO AM [facility] Last Admin: 04/29/18 06:03 Dose: 5 mg Tacrolimus (Prograf) 4 mg PO HS [facility] Last Admin: 04/28/18 21:04 Dose: 4 mg - Objective Vital Signs: Vital Signs Temperature 97.3 F L 04/29/18 07:06 Pulse Rate 74 04/29/18 07:06 Respiratory Rate 20 04/29/18 07:06 Blood Pressure 105/63 04/29/18 07:06 O2 Sat by Pulse Oximetry (%) 100 04/28/18 21:00 Constitutional: Yes: Calm Eyes: Yes: Conjunctiva Clear HENT: Yes: Atraumatic Neck: Yes: Supple Cardiovascular: Yes: S1, S2 Respiratory: Yes: CTA Bilaterally Gastrointestinal: Yes: Soft Genitourinary: Yes: WNL, Other (neg bruit, non tender) Musculoskeletal: Yes: WNL Wound/Incision: Yes: Open to air Neurological: Yes: Oriented Labs: CBC, BMP 04/28/18 06:30 04/29/18 06:00 INR, PTT INR 1.21 (0.83-1.09) H 04/27/18 17:50 Problem List - Problems (1) CKD (chronic kidney disease) Code(s): N18.9 - CHRONIC KIDNEY DISEASE, UNSPECIFIED Assessment/Plan Current Medications Generic Name Dose Route Start Last Admin Trade Name Freq PRN Reason Stop Dose Admin Acetaminophen 650 mg 04/28/18 19:46 04/28/18 21:02 Tylenol - PO 650 mg Q6H PRN Administration pain Allopurinol 100 mg 04/28/18 10:00 04/29/18 11:17 Zyloprim - PO 100 mg DAILY [facility] Administration Aspirin 81 mg 04/28/18 10:00 04/28/18 09:46 Asa - PO 81 mg DAILY [facility] Administration Atorvastatin Calcium 80 mg 04/28/18 22:00 04/28/18 21:03 Lipitor - PO 80 mg HS [facility] Administration Brimonidine Tartrate 1 drop 04/28/18 10:00 04/29/18 11:31 Alphagan 0.2% - OD 1 drop BID [facility] Administration Cinacalcet 60 mg 04/28/18 10:00 04/29/18 11:17 Sensipar - PO 60 mg DAILY [facility] Administration Clopidogrel Bisulfate 75 mg 04/28/18 10:00 04/28/18 09:46 Plavix - PO 75 mg DAILY [facility] Administration Docusate Sodium 100 mg 04/28/18 10:00 04/29/18 11:17 Colace - PO 100 mg BID [facility] Administration Ezetimibe 10 mg 04/28/18 10:00 04/29/18 11:17 Zetia - PO 10 mg DAILY [facility] Administration Heparin Sodium (Porcine) 5,000 unit 04/28/18 10:00 04/28/18 21:02 Heparin - SQ Not Given BID [facility] Piperacillin Sod/Tazobactam 100 mls @ 200 mls/hr 04/27/18 18:00 04/29/18 11: 18 Sod 4.5 gm/ Dextrose IVPB 200 mls/hr Q8H-IV [facility] Administration Protocol Sodium Chloride 1,000 mls @ 50 mls/hr 04/28/18 16:45 04/28/18 18:08 1/2 Normal Saline IV 04/29/18 16:43 50 mls/hr ASDIR [facility] Administration Latanoprost 1 drop 04/28/18 22:00 04/28/18 21:05 Xalatan 0.005% Eye Drops - OD 1 drop HS [facility] Administration Losartan Potassium 25 mg 04/28/18 10:00 04/29/18 11:17 Cozaar - PO 25 mg DAILY [facility] Administration Megestrol Acetate 800 mg 04/28/18 10:00 04/29/18 11:22 Megace Oral Suspension - PO 800 mg DAILY [facility] Administration Metoprolol Tartrate 25 mg 04/28/18 10:00 04/29/18 11:17 Lopressor - PO 25 mg BID [facility] Administration Mycophenolate Mofetil 1,000 mg 04/28/18 10:00 04/29/18 11:20 Cellcept - PO 1,000 mg BID [facility] Administration Nifedipine 60 mg 04/28/18 10:00 04/29/18 11:16 Procardia Xl - PO 60 mg DAILY [facility] Administration Paricalcitol 1 mcg 04/28/18 10:00 04/29/18 11:23 Zemplar - PO 1 mcg DAILY [facility] Administration Raltegravir 400 mg 04/28/18 10:00 04/29/18 11:22 Isentress - PO 400 mg BID [facility] Administration Tacrolimus 5 mg 04/28/18 10:30 04/29/18 06:03 Prograf PO 5 mg AM [facility] Administration Tacrolimus 4 mg 04/28/18 22:00 04/28/18 21:04 Prograf PO 4 mg HS [facility] Administration Impression 1. CKD 2. kidney tranplant 3. HIV 4. HTN 5. DM 6. cad 7. HLD Plan - cont fluids - change to ns - repeat labs in am - follow prograf level - follow renal ultrasound - abx per ID
[2018-04-29] MEDS: HEPARIN NA (PORCINE) 5,000 UNITS/ML 1ML VIAL SQ SCH ×2 (13:31→21:58)
[2018-04-29] MEDS ORDERED: SODIUM CHLORIDE 1,000 ML IV SCH (15:30)
[2018-04-29] MEDS: CLOPIDOGREL BISULFATE 75 MG TABLET (FP) PO SCH (15:44)
[2018-04-29] MEDS: ACETAMINOPHEN 325 MG TABLET (FP) PO PRN (15:44)
[2018-04-29] MEDS: ASPIRIN 81 MG CHEWABLE TABLETS PO SCH (15:45)
--- NOTE | 2018-04-29 22:06 | PN ---
Progress Note, Physician - Current Medication List Current Medications: Active Medications Acetaminophen (Tylenol -) 650 mg PO Q6H PRN PRN Reason: pain Last Admin: 04/29/18 15:44 Dose: 650 mg Allopurinol (Zyloprim -) 100 mg PO DAILY [facility] Last Admin: 04/29/18 11:17 Dose: 100 mg Aspirin (Asa -) 81 mg PO DAILY [facility] Last Admin: 04/29/18 15:45 Dose: 81 mg Atorvastatin Calcium (Lipitor -) 80 mg PO HS [facility] Last Admin: 04/28/18 21:03 Dose: 80 mg Brimonidine Tartrate (Alphagan 0.2% -) 1 drop OD BID [facility] Last Admin: 04/29/18 11:31 Dose: 1 drop Cinacalcet (Sensipar -) 60 mg PO DAILY [facility] Last Admin: 04/29/18 11:17 Dose: 60 mg Clopidogrel Bisulfate (Plavix -) 75 mg PO DAILY [facility] Last Admin: 04/29/18 15:44 Dose: 75 mg Docusate Sodium (Colace -) 100 mg PO BID [facility] Last Admin: 04/29/18 11:17 Dose: 100 mg Ezetimibe (Zetia -) 10 mg PO DAILY [facility] Last Admin: 04/29/18 11:17 Dose: 10 mg Heparin Sodium (Porcine) (Heparin -) 5,000 unit SQ BID [facility] Last Admin: 04/29/18 13:31 Dose: Not Given Piperacillin Sod/Tazobactam (Sod 4.5 gm/ Dextrose) 100 mls @ 200 mls/hr IVPB Q8H-IV [facility]; Protocol Last Admin: 04/29/18 18:32 Dose: 200 mls/hr Sodium Chloride (Normal Saline -) 1,000 mls @ 50 mls/hr IV ASDIR [facility] Stop: 04/30/18 15:23 Last Admin: 04/29/18 15:45 Dose: 50 mls/hr Latanoprost (Xalatan 0.005% Eye Drops -) 1 drop OD HS [facility] Last Admin: 04/28/18 21:05 Dose: 1 drop Losartan Potassium (Cozaar -) 25 mg PO DAILY [facility] Last Admin: 04/29/18 11:17 Dose: 25 mg Megestrol Acetate (Megace Oral Suspension -) 800 mg PO DAILY [facility] Last Admin: 04/29/18 11:22 Dose: 800 mg Metoprolol Tartrate (Lopressor -) 25 mg PO BID [facility] Last Admin: 04/29/18 11:17 Dose: 25 mg Mycophenolate Mofetil (Cellcept -) 1,000 mg PO BID [facility] Last Admin: 04/29/18 11:20 Dose: 1,000 mg Nifedipine (Procardia Xl -) 60 mg PO DAILY [facility] Last Admin: 04/29/18 11:16 Dose: 60 mg Paricalcitol (Zemplar -) 1 mcg PO DAILY [facility] Last Admin: 04/29/18 11:23 Dose: 1 mcg Raltegravir (Isentress -) 400 mg PO BID [facility] Last Admin: 04/29/18 11:22 Dose: 400 mg Tacrolimus (Prograf) 5 mg PO AM [facility] Last Admin: 04/29/18 06:03 Dose: 5 mg Tacrolimus (Prograf) 4 mg PO HS [facility] Last Admin: 04/28/18 21:04 Dose: 4 mg - Objective Vital Signs: Vital Signs Temperature 98.1 F 04/29/18 18:51 Pulse Rate 81 04/29/18 18:51 Respiratory Rate 18 04/29/18 18:51 Blood Pressure 123/72 04/29/18 18:51 O2 Sat by Pulse Oximetry (%) 100 04/28/18 21:00 Labs: CBC, BMP 04/28/18 06:30 04/29/18 06:00 INR, PTT INR 1.21 (0.83-1.09) H 04/27/18 17:50
[2018-04-29] MEDS: TACROLIMUS ANHYDROUS 1 MG CAPSULE PO SCH (22:07)
[2018-04-29] MEDS: ATORVASTATIN CA 80 MG TABLET (FP) PO SCH (22:07)
[2018-04-29] MEDS: LATANOPROST 0.005% OPHTH SOLN 2.5ML BOTTLE OD SCH (22:08)
[2018-04-30] MEDS ORDERED: PIPERACILLIN/TAZOBACTAM 4.5 GM VIAL IVPB ONE ×3 (00:26→16:44)
[2018-04-30] MEDS ORDERED: DEXTROSE 5%-WATER 100 ML IVPB ONE ×3 (00:26→16:45)
[2018-04-30] MEDS: PIPERACILLIN/TAZOB 4.5 GM 4.5 GM in DEXTROSE 5%-WATER 100 ML IVPB SCH ×3 (01:45→17:14)
[2018-04-30] MEDS: TACROLIMUS ANHYDROUS 5 MG CAPSULE PO SCH (06:01)
[2018-04-30 08:40] LABS: ALBUMIN 2.8 g/dl (3.4-5.0); ALK PHOS 49 U/L (45-117); ANION GAP 7 MMOL/L (8-16); BILIRUBIN,TOTAL 0.6 mg/dL (0.2-1); BLOOD UREA NITROGEN 22 mg/dL (7-18); CALCIUM 8.8 mg/dL (8.5-10.1); CHLORIDE 111 mmol/L (98-107); CO2 21 mmol/L (21-32); CREATININE 1.8 mg/dL (0.55-1.3); GLUCOSE,RANDOM 81 mg/dL (74-106); POTASSIUM 4.3 mmol/L (3.5-5.1); SGOT/AST 12 U/L (15-37); SGPT/ALT 9 U/L (13-61); SODIUM 139 mmol/L (136-145); TOT PROT 6.4 g/dl (6.4-8.2)
[2018-04-30] MEDS: NIFEdipine E.R 60 MG TABLET (UD) PO SCH (10:07)
[2018-04-30] MEDS: DOCUSATE SODIUM 100 MG CAPSULE (FP) PO SCH ×2 (10:08→22:20)
[2018-04-30] MEDS: ACETAMINOPHEN 325 MG TABLET (FP) PO PRN ×2 (10:08→22:30)
[2018-04-30] MEDS: METOPROLOL TARTRATE 50 MG TABLET (FP) PO SCH ×2 (10:08→22:20)
[2018-04-30] MEDS: ALLOPURINOL 100 MG TABLET (FP) PO SCH (10:10)
[2018-04-30] MEDS: LOSARTAN POTASSIUM 25 MG TABLET PO SCH (10:10)
[2018-04-30] MEDS: EZETIMIBE 10 MG TABLET (FP) PO SCH (10:10)
[2018-04-30] MEDS: CINACALCET HCL 30 MG TAB (FP) PO SCH (10:11)
[2018-04-30] MEDS: RALTEGRAVIR POTASSIUM 400 MG TAB PO SCH ×2 (10:14→22:21)
[2018-04-30] MEDS: MEGESTROL ACETATE 400 MG/10 ML UNIT DOSE CUP PO SCH (10:14)
[2018-04-30] MEDS: PARICALCITOL 1 MCG CAP PO SCH (10:15)
[2018-04-30] MEDS: EMTRICITABINE/TENOFOV ALAFENAM (DESCOVY) TABLET PO SCH (10:16)
[2018-04-30] MEDS: BRIMONIDINE TARTRATE 0.2% OPHTHALMIC 5 ML BOTTLE OD SCH ×2 (10:17→22:20)
[2018-04-30] MEDS: MYCOPHENOLATE MOFETIL 500 MG TABLET PO SCH ×2 (10:24→22:22)
[2018-04-30] MEDS: HEPARIN NA (PORCINE) 5,000 UNITS/ML 1ML VIAL SQ SCH (10:25)
[2018-04-30] MEDS: CLOPIDOGREL BISULFATE 75 MG TABLET (FP) PO SCH (12:09)
[2018-04-30] MEDS: ASPIRIN 81 MG CHEWABLE TABLETS PO SCH (12:09)
--- NOTE | 2018-04-30 14:07 | PN ---
Progress Note (short form) - Note Progress Note: problems 1. CKD 2. kidney tranplant 3. HIV 4. HTN 5. DM 6. cad 7. HLD Current Medications Acetaminophen (Tylenol -) 650 mg PO Q6H PRN PRN Reason: pain Last Admin: 04/30/18 10:08 Dose: 650 mg Allopurinol (Zyloprim -) 100 mg PO DAILY [facility] Last Admin: 04/30/18 10:10 Dose: 100 mg Aspirin (Asa -) 81 mg PO DAILY [facility] Last Admin: 04/30/18 12:09 Dose: 81 mg Atorvastatin Calcium (Lipitor -) 80 mg PO HS [facility] Last Admin: 04/29/18 22:07 Dose: 80 mg Brimonidine Tartrate (Alphagan 0.2% -) 1 drop OD BID [facility] Last Admin: 04/30/18 10:17 Dose: 1 drop Cinacalcet (Sensipar -) 60 mg PO DAILY [facility] Last Admin: 04/30/18 10:11 Dose: 60 mg Docusate Sodium (Colace -) 100 mg PO BID [facility] Last Admin: 04/30/18 10:08 Dose: 100 mg Ezetimibe (Zetia -) 10 mg PO DAILY [facility] Last Admin: 04/30/18 10:10 Dose: 10 mg Piperacillin Sod/Tazobactam (Sod 4.5 gm/ Dextrose) 100 mls @ 200 mls/hr IVPB Q8H-IV [facility]; Protocol Last Admin: 04/30/18 10:05 Dose: 200 mls/hr Sodium Chloride (Normal Saline -) 1,000 mls @ 50 mls/hr IV ASDIR [facility] Stop: 04/30/18 15:23 Last Admin: 04/29/18 15:45 Dose: 50 mls/hr Latanoprost (Xalatan 0.005% Eye Drops -) 1 drop OD HS [facility] Last Admin: 04/29/18 22:08 Dose: 1 drop Losartan Potassium (Cozaar -) 25 mg PO DAILY [facility] Last Admin: 04/30/18 10:10 Dose: 25 mg Megestrol Acetate (Megace Oral Suspension -) 800 mg PO DAILY [facility] Last Admin: 04/30/18 10:14 Dose: 800 mg Metoprolol Tartrate (Lopressor -) 25 mg PO BID [facility] Last Admin: 04/30/18 10:08 Dose: 25 mg Mycophenolate Mofetil (Cellcept -) 1,000 mg PO BID [facility] Last Admin: 04/30/18 10:24 Dose: 1,000 mg Nifedipine (Procardia Xl -) 60 mg PO DAILY [facility] Last Admin: 04/30/18 10:07 Dose: 60 mg Paricalcitol (Zemplar -) 1 mcg PO DAILY [facility] Last Admin: 04/30/18 10:15 Dose: 1 mcg Raltegravir (Isentress -) 400 mg PO BID [facility] Last Admin: 04/30/18 10:14 Dose: 400 mg Tacrolimus (Prograf) 5 mg PO AM [facility] Last Admin: 04/30/18 06:01 Dose: 5 mg Tacrolimus (Prograf) 4 mg PO HS [facility] Last Admin: 04/29/18 22:07 Dose: 4 mg Last Vital Signs Temp Pulse Resp BP Pulse Ox 98.4 F 84 18 153/73 100 04/30/18 10:50 04/30/18 10:50 04/30/18 10:50 04/30/18 10:50 04/28/18 21:00 no distress Lungs clear Heart reg Abd soft Ext no edema CBC, BMP 04/28/18 06:30 04/30/18 06:30 Plan - cont fluids - change to ns - repeat labs in am - follow prograf level - follow renal ultrasound - abx per ID
--- NOTE | 2018-04-30 15:04 | PN ---
Progress Note, Physician History of Present Illness: Pt seen and examine, events noted, labs/imaging results reviewed. He states he is feeling well. Pain in Rt foot is controlled. No specific complaints offered. - Current Medication List Current Medications: Active Medications Acetaminophen (Tylenol -) 650 mg PO Q6H PRN PRN Reason: pain Last Admin: 04/30/18 10:08 Dose: 650 mg Allopurinol (Zyloprim -) 100 mg PO DAILY [facility] Last Admin: 04/30/18 10:10 Dose: 100 mg Aspirin (Asa -) 81 mg PO DAILY [facility] Last Admin: 04/30/18 12:09 Dose: 81 mg Atorvastatin Calcium (Lipitor -) 80 mg PO HS [facility] Last Admin: 04/29/18 22:07 Dose: 80 mg Brimonidine Tartrate (Alphagan 0.2% -) 1 drop OD BID [facility] Last Admin: 04/30/18 10:17 Dose: 1 drop Cinacalcet (Sensipar -) 60 mg PO DAILY [facility] Last Admin: 04/30/18 10:11 Dose: 60 mg Docusate Sodium (Colace -) 100 mg PO BID [facility] Last Admin: 04/30/18 10:08 Dose: 100 mg Ezetimibe (Zetia -) 10 mg PO DAILY [facility] Last Admin: 04/30/18 10:10 Dose: 10 mg Piperacillin Sod/Tazobactam (Sod 4.5 gm/ Dextrose) 100 mls @ 200 mls/hr IVPB Q8H-IV [facility]; Protocol Last Admin: 04/30/18 10:05 Dose: 200 mls/hr Sodium Chloride (Normal Saline -) 1,000 mls @ 50 mls/hr IV ASDIR [facility] Stop: 04/30/18 15:23 Last Admin: 04/29/18 15:45 Dose: 50 mls/hr Latanoprost (Xalatan 0.005% Eye Drops -) 1 drop OD HS [facility] Last Admin: 04/29/18 22:08 Dose: 1 drop Losartan Potassium (Cozaar -) 25 mg PO DAILY [facility] Last Admin: 04/30/18 10:10 Dose: 25 mg Megestrol Acetate (Megace Oral Suspension -) 800 mg PO DAILY [facility] Last Admin: 04/30/18 10:14 Dose: 800 mg Metoprolol Tartrate (Lopressor -) 25 mg PO BID [facility] Last Admin: 04/30/18 10:08 Dose: 25 mg Mycophenolate Mofetil (Cellcept -) 1,000 mg PO BID [facility] Last Admin: 04/30/18 10:24 Dose: 1,000 mg Nifedipine (Procardia Xl -) 60 mg PO DAILY [facility] Last Admin: 04/30/18 10:07 Dose: 60 mg Paricalcitol (Zemplar -) 1 mcg PO DAILY [facility] Last Admin: 04/30/18 10:15 Dose: 1 mcg Raltegravir (Isentress -) 400 mg PO BID [facility] Last Admin: 04/30/18 10:14 Dose: 400 mg Tacrolimus (Prograf) 5 mg PO AM [facility] Last Admin: 04/30/18 06:01 Dose: 5 mg Tacrolimus (Prograf) 4 mg PO HS [facility] Last Admin: 04/29/18 22:07 Dose: 4 mg - Objective Vital Signs: Vital Signs Temperature 98.4 F 04/30/18 10:50 Pulse Rate 84 04/30/18 10:50 Respiratory Rate 18 04/30/18 10:50 Blood Pressure 153/73 04/30/18 10:50 O2 Sat by Pulse Oximetry (%) 96 04/30/18 09:00 Constitutional: Yes: No Distress, Calm Cardiovascular: Yes: Regular Rate and Rhythm Respiratory: Yes: Regular Gastrointestinal: Yes: Normal Bowel Sounds, Soft Genitourinary: Yes: WNL Wound/Incision: Yes: Other (Rt foot dressing intact, pt refusing removal to examine toe) Neurological: Yes: Alert Labs: CBC, BMP 04/28/18 06:30 04/30/18 06:30 INR, PTT INR 1.21 (0.83-1.09) H 04/27/18 17:50 Microbiology 04/27/18 17:58 Toe - Right Hallux Gram Stain - Final 04/27/18 17:58 Toe - Right Hallux Wound Culture - Preliminary Staphylococcus Latex Coag Pos Group D Strep Or Entero Coccus Diphtheroid/Corynebacterium 04/27/18 17:50 Blood - Peripheral Venous Blood Culture - Preliminary NO GROWTH OBTAINED AFTER 48 HOURS, INCUBATION TO CONTINUE FOR 3 DAYS. 04/27/18 17:50 Blood - Peripheral Venous Blood Culture - Preliminary NO GROWTH OBTAINED AFTER 48 HOURS, INCUBATION TO CONTINUE FOR 3 DAYS. - ....Imaging X-ray: Report Reviewed Cat Scan: Report Reviewed Problem List - Problems (1) CKD (chronic kidney disease) Code(s): N18.9 - CHRONIC KIDNEY DISEASE, UNSPECIFIED (2) Type 2 diabetes mellitus with diabetic peripheral angiopathy with gangrene Code(s): E11.52 - TYPE 2 DIABETES W DIABETIC PERIPHERAL ANGIOPATHY W GANGRENE Qualifiers: Diabetes mellitus salvage determiner insulin use: unspecified salvage determiner insulin use status Qualified Code(s): E11.52 - Type 2 diabetes mellitus with diabetic peripheral angiopathy with gangrene Assessment/Plan Rt toe gangrene HIV VERÓNICA on CKD s/p renal transplant DM AFIB Gout -- wound cultures noted -- continue current antibiotic -- amputation planned -- nephrology following -- pt is refusing information regarding his HIV management, does not know his medications/states he follows every 3 mos with doctor at [facility] and will f/ u as outpt
--- NOTE | 2018-04-30 22:00 | EKG ---
Test Reason : Blood Pressure : / mmHG Vent. Rate : 082 BPM Atrial Rate : 082 BPM P-R Int : 158 ms QRS Dur : 104 ms QT Int : 350 ms P-R-T Axes : 054 -18 110 degrees QTc Int : 408 ms SINUS RHYTHM WITH PREMATURE ATRIAL COMPLEXES LEFT VENTRICULAR HYPERTROPHY WITH REPOLARIZATION ABNORMALITY CANNOT RULE OUT SEPTAL INFARCT , AGE UNDETERMINED ABNORMAL ECG NO PREVIOUS ECGS AVAILABLE Confirmed by CLARENCE GUERRERO MD ([id number]) on 04/30/2018 9:59:40 PM Referred By: Adrien FORMAN Confirmed By:CLARENCE GUERRERO MD
[2018-04-30] MEDS: LATANOPROST 0.005% OPHTH SOLN 2.5ML BOTTLE OD SCH (22:19)
[2018-04-30] MEDS: ATORVASTATIN CA 80 MG TABLET (FP) PO SCH (22:19)
[2018-04-30] MEDS: TACROLIMUS ANHYDROUS 1 MG CAPSULE PO SCH (22:23)
--- NOTE | 2018-04-30 23:03 | PN ---
Progress Note, Physician - Current Medication List Current Medications: Active Medications Acetaminophen (Tylenol -) 650 mg PO Q6H PRN PRN Reason: pain Last Admin: 04/30/18 22:30 Dose: 650 mg Allopurinol (Zyloprim -) 100 mg PO DAILY [facility] Last Admin: 04/30/18 10:10 Dose: 100 mg Atorvastatin Calcium (Lipitor -) 80 mg PO HS [facility] Last Admin: 04/30/18 22:19 Dose: 80 mg Brimonidine Tartrate (Alphagan 0.2% -) 1 drop OD BID [facility] Last Admin: 04/30/18 22:20 Dose: 1 drop Cinacalcet (Sensipar -) 60 mg PO DAILY [facility] Last Admin: 04/30/18 10:11 Dose: 60 mg Docusate Sodium (Colace -) 100 mg PO BID [facility] Last Admin: 04/30/18 22:20 Dose: Not Given Ezetimibe (Zetia -) 10 mg PO DAILY [facility] Last Admin: 04/30/18 10:10 Dose: 10 mg Piperacillin Sod/Tazobactam (Sod 4.5 gm/ Dextrose) 100 mls @ 200 mls/hr IVPB Q8H-IV CLAUDE; Protocol Last Admin: 04/30/18 17:14 Dose: 200 mls/hr Latanoprost (Xalatan 0.005% Eye Drops -) 1 drop OD HS [facility] Last Admin: 04/30/18 22:19 Dose: 1 drop Losartan Potassium (Cozaar -) 25 mg PO DAILY [facility] Last Admin: 04/30/18 10:10 Dose: 25 mg Megestrol Acetate (Megace Oral Suspension -) 800 mg PO DAILY [facility] Last Admin: 04/30/18 10:14 Dose: 800 mg Metoprolol Tartrate (Lopressor -) 25 mg PO BID [facility] Last Admin: 04/30/18 22:20 Dose: 25 mg Mycophenolate Mofetil (Cellcept -) 1,000 mg PO BID [facility] Last Admin: 04/30/18 22:22 Dose: 1,000 mg Nifedipine (Procardia Xl -) 60 mg PO DAILY [facility] Last Admin: 04/30/18 10:07 Dose: 60 mg Paricalcitol (Zemplar -) 1 mcg PO DAILY [facility] Last Admin: 04/30/18 10:15 Dose: 1 mcg Raltegravir (Isentress -) 400 mg PO BID [facility] Last Admin: 04/30/18 22:21 Dose: 400 mg Tacrolimus (Prograf) 5 mg PO AM [facility] Last Admin: 04/30/18 06:01 Dose: 5 mg Tacrolimus (Prograf) 4 mg PO HS [facility] Last Admin: 04/30/18 22:23 Dose: 4 mg - Objective Vital Signs: Vital Signs Temperature 99 F 04/30/18 18:00 Pulse Rate 81 04/30/18 18:00 Respiratory Rate 18 04/30/18 18:00 Blood Pressure 123/59 L 04/30/18 18:00 O2 Sat by Pulse Oximetry (%) 96 04/30/18 09:00 Labs: CBC, BMP 04/28/18 06:30 04/30/18 06:30 INR, PTT INR 1.21 (0.83-1.09) H 04/27/18 17:50
[2018-05-01] MEDS ORDERED: PIPERACILLIN/TAZOBACTAM 4.5 GM VIAL IVPB ONE ×3 (00:24→17:41)
[2018-05-01] MEDS ORDERED: DEXTROSE 5%-WATER 100 ML IVPB ONE ×3 (00:25→17:41)
[2018-05-01] MEDS: PIPERACILLIN/TAZOB 4.5 GM 4.5 GM in DEXTROSE 5%-WATER 100 ML IVPB SCH ×3 (01:25→18:15)
[2018-05-01] MEDS: TACROLIMUS ANHYDROUS 5 MG CAPSULE PO SCH (06:08)
[2018-05-01] MEDS: BRIMONIDINE TARTRATE 0.2% OPHTHALMIC 5 ML BOTTLE OD SCH ×2 (10:23→22:11)
[2018-05-01] MEDS: CINACALCET HCL 30 MG TAB (FP) PO SCH (10:25)
[2018-05-01] MEDS: METOPROLOL TARTRATE 50 MG TABLET (FP) PO SCH ×2 (10:25→21:54)
[2018-05-01] MEDS: EZETIMIBE 10 MG TABLET (FP) PO SCH (10:25)
[2018-05-01] MEDS: NIFEdipine E.R 60 MG TABLET (UD) PO SCH (10:25)
[2018-05-01] MEDS: ALLOPURINOL 100 MG TABLET (FP) PO SCH (10:26)
[2018-05-01] MEDS: LOSARTAN POTASSIUM 25 MG TABLET PO SCH (10:26)
[2018-05-01] MEDS: MYCOPHENOLATE MOFETIL 500 MG TABLET PO SCH ×2 (10:31→21:55)
[2018-05-01] MEDS: EMTRICITABINE/TENOFOV ALAFENAM (DESCOVY) TABLET PO SCH (10:31)
[2018-05-01] MEDS: RALTEGRAVIR POTASSIUM 400 MG TAB PO SCH ×2 (10:32→21:54)
[2018-05-01] MEDS: MEGESTROL ACETATE 400 MG/10 ML UNIT DOSE CUP PO SCH (10:32)
[2018-05-01] MEDS: PARICALCITOL 1 MCG CAP PO SCH (10:33)
[2018-05-01] MEDS: DOCUSATE SODIUM 100 MG CAPSULE (FP) PO SCH ×2 (10:44→21:55)
[2018-05-01] MEDS: ACETAMINOPHEN 325 MG TABLET (FP) PO PRN ×2 (10:54→22:06)
[2018-05-01] MEDS ORDERED: PT OWN MED DRAWER 7, Y5N ONE ×3 (13:14→21:52)
[2018-05-01 13:57] LABS: INR 1.26 (0.83-1.09); PROTHROMBIN TIME (PATIENT) 14.9 SEC (9.7-13.0)
--- NOTE | 2018-05-01 13:59 | PN ---
Progress Note, Physician History of Present Illness: stable doing well no new issues - Current Medication List Current Medications: Active Medications Acetaminophen (Tylenol -) 650 mg PO Q6H PRN PRN Reason: pain Last Admin: 05/01/18 10:54 Dose: 650 mg Allopurinol (Zyloprim -) 100 mg PO DAILY [facility] Last Admin: 05/01/18 10:26 Dose: 100 mg Atorvastatin Calcium (Lipitor -) 80 mg PO HS [facility] Last Admin: 04/30/18 22:19 Dose: 80 mg Brimonidine Tartrate (Alphagan 0.2% -) 1 drop OD BID [facility] Last Admin: 05/01/18 10:23 Dose: 1 drop Cinacalcet (Sensipar -) 60 mg PO DAILY [facility] Last Admin: 05/01/18 10:25 Dose: 60 mg Docusate Sodium (Colace -) 100 mg PO BID [facility] Last Admin: 05/01/18 10:44 Dose: Not Given Ezetimibe (Zetia -) 10 mg PO DAILY [facility] Last Admin: 05/01/18 10:25 Dose: 10 mg Piperacillin Sod/Tazobactam (Sod 4.5 gm/ Dextrose) 100 mls @ 200 mls/hr IVPB Q8H-IV [facility]; Protocol Last Admin: 05/01/18 12:05 Dose: 200 mls/hr Latanoprost (Xalatan 0.005% Eye Drops -) 1 drop OD [facility] Last Admin: 04/30/18 22:19 Dose: 1 drop Losartan Potassium (Cozaar -) 25 mg PO DAILY [facility] Last Admin: 05/01/18 10:26 Dose: 25 mg Megestrol Acetate (Megace Oral Suspension -) 800 mg PO DAILY [facility] Last Admin: 05/01/18 10:32 Dose: 800 mg Metoprolol Tartrate (Lopressor -) 25 mg PO BID [facility] Last Admin: 05/01/18 10:25 Dose: 25 mg Mycophenolate Mofetil (Cellcept -) 1,000 mg PO BID [facility] Last Admin: 05/01/18 10:31 Dose: 1,000 mg Nifedipine (Procardia Xl -) 60 mg PO DAILY [facility] Last Admin: 05/01/18 10:25 Dose: 60 mg Paricalcitol (Zemplar -) 1 mcg PO DAILY [facility] Last Admin: 05/01/18 10:33 Dose: 1 mcg Raltegravir (Isentress -) 400 mg PO BID [facility] Last Admin: 05/01/18 10:32 Dose: 400 mg Tacrolimus (Prograf) 5 mg PO AM [facility] Last Admin: 05/01/18 06:08 Dose: 5 mg Tacrolimus (Prograf) 4 mg PO HS [facility] Last Admin: 04/30/18 22:23 Dose: 4 mg - Objective Vital Signs: Vital Signs Temperature 98.7 F 05/01/18 08:57 Pulse Rate 78 05/01/18 08:57 Respiratory Rate 18 05/01/18 09:00 Blood Pressure 166/82 05/01/18 08:57 O2 Sat by Pulse Oximetry (%) 96 05/01/18 09:00 Constitutional: Yes: No Distress, Calm Cardiovascular: Yes: S1, S2 Respiratory: Yes: Regular, CTA Bilaterally Gastrointestinal: Yes: Normal Bowel Sounds, Soft Musculoskeletal: Yes: WNL Extremities: Yes: Erythema, Other Wound/Incision: Yes: Open to air Neurological: Yes: Alert, Oriented Psychiatric: Yes: Alert, Oriented Labs: CBC, BMP 04/28/18 06:30 04/30/18 06:30 INR, PTT INR 1.26 (0.83-1.09) H 05/01/18 13:00 - ....Imaging Ultrasound: Report Reviewed, Image Reviewed Assessment/Plan CKD kidney tranplant HIV HTN . DM cad HLD wound infection patient with vre wound infection and other organisms plan will not start dapto at the moment as patient is going for amputation will ask for biopsy margins post amputation continue abx rest as per the team
--- NOTE | 2018-05-01 20:59 | PN ---
Progress Note (short form) - Note Progress Note: problems 1. CKD 2. kidney tranplant 3. HIV 4. HTN 5. DM 6. cad 7. HLD Current Medications Acetaminophen (Tylenol -) 650 mg PO Q6H PRN PRN Reason: pain Last Admin: 05/01/18 10:54 Dose: 650 mg Allopurinol (Zyloprim -) 100 mg PO DAILY [facility] Last Admin: 05/01/18 10:26 Dose: 100 mg Atorvastatin Calcium (Lipitor -) 80 mg PO HS [facility] Last Admin: 04/30/18 22:19 Dose: 80 mg Brimonidine Tartrate (Alphagan 0.2% -) 1 drop OD BID [facility] Last Admin: 05/01/18 10:23 Dose: 1 drop Cinacalcet (Sensipar -) 60 mg PO DAILY [facility] Last Admin: 05/01/18 10:25 Dose: 60 mg Docusate Sodium (Colace -) 100 mg PO BID [facility] Last Admin: 05/01/18 10:44 Dose: Not Given Ezetimibe (Zetia -) 10 mg PO DAILY [facility] Last Admin: 05/01/18 10:25 Dose: 10 mg Piperacillin Sod/Tazobactam (Sod 4.5 gm/ Dextrose) 100 mls @ 200 mls/hr IVPB Q8H-IV [facility]; Protocol Last Admin: 05/01/18 18:15 Dose: Not Given Latanoprost (Xalatan 0.005% Eye Drops -) 1 drop OD HS [facility] Last Admin: 04/30/18 22:19 Dose: 1 drop Losartan Potassium (Cozaar -) 25 mg PO DAILY [facility] Last Admin: 05/01/18 10:26 Dose: 25 mg Megestrol Acetate (Megace Oral Suspension -) 800 mg PO DAILY [facility] Last Admin: 05/01/18 10:32 Dose: 800 mg Metoprolol Tartrate (Lopressor -) 25 mg PO BID [facility] Last Admin: 05/01/18 10:25 Dose: 25 mg Mycophenolate Mofetil (Cellcept -) 1,000 mg PO BID [facility] Last Admin: 05/01/18 10:31 Dose: 1,000 mg Nifedipine (Procardia Xl -) 60 mg PO DAILY [facility] Last Admin: 05/01/18 10:25 Dose: 60 mg Paricalcitol (Zemplar -) 1 mcg PO DAILY [facility] Last Admin: 05/01/18 10:33 Dose: 1 mcg Raltegravir (Isentress -) 400 mg PO BID [facility] Last Admin: 05/01/18 10:32 Dose: 400 mg Tacrolimus (Prograf) 5 mg PO AM [facility] Last Admin: 05/01/18 06:08 Dose: 5 mg Tacrolimus (Prograf) 4 mg PO HS [facility] Last Admin: 04/30/18 22:23 Dose: 4 mg Last Vital Signs Temp Pulse Resp BP Pulse Ox 98.6 F 80 18 142/75 96 05/01/18 20:31 05/01/18 20:31 05/01/18 20:31 05/01/18 20:31 05/01/18 09:00 no distress Lungs clear Heart reg Abd soft Ext no edema CBC, BMP 04/28/18 06:30 04/30/18 06:30 Plan - cont fluids - change to ns - repeat labs in am - follow prograf level - follow renal ultrasound - abx per ID
[2018-05-01] MEDS: ATORVASTATIN CA 80 MG TABLET (FP) PO SCH (21:54)
[2018-05-01] MEDS: TACROLIMUS ANHYDROUS 1 MG CAPSULE PO SCH (21:54)
[2018-05-01] MEDS: LATANOPROST 0.005% OPHTH SOLN 2.5ML BOTTLE OD SCH (22:12)
--- NOTE | 2018-05-01 23:25 | PN ---
Progress Note, Physician History of Present Illness: Pt scheduled for surgery in am - Current Medication List Current Medications: Active Medications Acetaminophen (Tylenol -) 650 mg PO Q6H PRN PRN Reason: pain Last Admin: 05/01/18 22:06 Dose: 650 mg Allopurinol (Zyloprim -) 100 mg PO DAILY [facility] Last Admin: 05/01/18 10:26 Dose: 100 mg Atorvastatin Calcium (Lipitor -) 80 mg PO HS [facility] Last Admin: 05/01/18 21:54 Dose: 80 mg Brimonidine Tartrate (Alphagan 0.2% -) 1 drop OD BID [facility] Last Admin: 05/01/18 22:11 Dose: 1 drop Cinacalcet (Sensipar -) 60 mg PO DAILY [facility] Last Admin: 05/01/18 10:25 Dose: 60 mg Docusate Sodium (Colace -) 100 mg PO BID [facility] Last Admin: 05/01/18 21:55 Dose: Not Given Ezetimibe (Zetia -) 10 mg PO DAILY [facility] Last Admin: 05/01/18 10:25 Dose: 10 mg Piperacillin Sod/Tazobactam (Sod 4.5 gm/ Dextrose) 100 mls @ 200 mls/hr IVPB Q8H-IV [facility]; Protocol Last Admin: 05/01/18 18:15 Dose: Not Given Latanoprost (Xalatan 0.005% Eye Drops -) 1 drop OD [facility] Last Admin: 05/01/18 22:12 Dose: 1 drop Losartan Potassium (Cozaar -) 25 mg PO DAILY [facility] Last Admin: 05/01/18 10:26 Dose: 25 mg Megestrol Acetate (Megace Oral Suspension -) 800 mg PO DAILY [facility] Last Admin: 05/01/18 10:32 Dose: 800 mg Metoprolol Tartrate (Lopressor -) 25 mg PO BID [facility] Last Admin: 05/01/18 21:54 Dose: 25 mg Mycophenolate Mofetil (Cellcept -) 1,000 mg PO BID [facility] Last Admin: 05/01/18 21:55 Dose: 1,000 mg Nifedipine (Procardia Xl -) 60 mg PO DAILY [facility] Last Admin: 05/01/18 10:25 Dose: 60 mg Paricalcitol (Zemplar -) 1 mcg PO DAILY [facility] Last Admin: 05/01/18 10:33 Dose: 1 mcg Raltegravir (Isentress -) 400 mg PO BID [facility] Last Admin: 05/01/18 21:54 Dose: 400 mg Tacrolimus (Prograf) 5 mg PO AM [facility] Last Admin: 05/01/18 06:08 Dose: 5 mg Tacrolimus (Prograf) 4 mg PO HS [facility] Last Admin: 05/01/18 21:54 Dose: 4 mg - Objective Vital Signs: Vital Signs Temperature 98.6 F 05/01/18 20:31 Pulse Rate 80 05/01/18 20:31 Respiratory Rate 18 05/01/18 20:31 Blood Pressure 142/75 05/01/18 20:31 O2 Sat by Pulse Oximetry (%) 96 05/01/18 21:00 HENT: Yes: WNL Neck: Yes: WNL, Supple Cardiovascular: Yes: WNL, Regular Rate and Rhythm Respiratory: Yes: WNL, Regular, CTA Bilaterally Extremities: Yes: Other (Rt foot w/ dressing) Labs: CBC, BMP 04/28/18 06:30 04/30/18 06:30 INR, PTT INR 1.26 (0.83-1.09) H 05/01/18 13:00 Problem List - Problems (1) Diabetic foot ulcer Assessment/Plan: Cont IV antibxs Pt scheduled for amputation rt big toe No medical contraindication for surgery at this time Code(s): E11.621 - TYPE 2 DIABETES MELLITUS WITH FOOT ULCER; L97.509 - NON- PRESSURE CHRONIC ULCER OTH PRT UNSP FOOT W UNSP SEVERITY (2) Diabetes Code(s): E11.9 - TYPE 2 DIABETES MELLITUS WITHOUT COMPLICATIONS (3) CKD (chronic kidney disease) Code(s): N18.9 - CHRONIC KIDNEY DISEASE, UNSPECIFIED (4) HIV (human immunodeficiency virus infection) Code(s): B20 - HUMAN IMMUNODEFICIENCY VIRUS [HIV] DISEASE (5) HTN (hypertension) Code(s): I10 - ESSENTIAL (PRIMARY) HYPERTENSION (6) Renal transplant recipient Code(s): Z94.0 - KIDNEY TRANSPLANT STATUS
[2018-05-02] MEDS: PIPERACILLIN/TAZOB 4.5 GM 4.5 GM in DEXTROSE 5%-WATER 100 ML IVPB SCH ×4 (01:16→17:55)
[2018-05-02] MEDS ORDERED: PT OWN MED DRAWER 7, Y5N ONE ×3 (06:28→18:54)
[2018-05-02] MEDS: TACROLIMUS ANHYDROUS 5 MG CAPSULE PO SCH (06:33)
--- NOTE | 2018-05-02 06:37 | CON.CARD ---
Consult Consult Specialty:: cardiology Reason for Consultation:: pre-op clearance (toe amputation) - History of Present Illness Chief Complaint: Pt with intermittent right foot pain; no chest pain or dyspnea. History of Present Illness: 72 y/o black male presenting to [facility] ER on referral from Dr. Mooney with concern for gangrenous infection to first toe of right foot. Written orders requesting admission to Dr. Wilson service with consultation to Drs. Loyola and Lily. Pt endorses pain to the area made worse with movement of the toe. States symptoms started approx. 1 month ago and has progressively worsened. H/o of gout in the toe. Denies fevers or chills. Was evaluated at [facility] recently for right ankle swelling and pain to right first toe. Found to be febrile and tachycardic. Received IV antibiotics. Unknown hospital course. Pt currently a resident at [facility] PCP: Dr. Lion Flynn Hx: - CKD s/p renal transplant, on Tacrolimus - A-fib, on ASA, Plavix, and Coumadin. Coumadin held this morning and pt received PO Vit. K - HIV, last viral load zero. Unknown CD4 count. - Gout on Allopurinol - DM - HIV - Carotid plaque - PAD s/p stenting, location unknown --Pt says he had a recent stress MIBI (late 2017): ?results. - History Source History Provided By: Patient, Medical Record Limitations to Obtaining History: Poor Historian - Past Medical History Cardio/Vascular: Yes: HTN, Hyperlipdemia Renal/: Yes: Renal Inusuff, Other (kidney transplant) Infectious Disease: Yes: HIV - Past Surgical History Past Surgical History: Yes: AV Fistula/Graft, Kidney Transplant - Alcohol/Substance Use Hx Alcohol Use: No - Smoking History Smoking history: Former smoker Have you smoked in the past 12 months: No Home Medications - Allergies Allergies/Adverse Reactions: Allergies Allergy/AdvReac Type Severity Reaction Status Date / Time shellfish derived Allergy Verified 04/28/18 04:57 - Home Medications Home Medications: Ambulatory Orders Allopurinol [Zyloprim -] 100 mg PO DAILY 04/27/18 Aspirin [ASA -] 81 mg PO DAILY 04/27/18 Atorvastatin Ca [Lipitor] 80 mg PO HS 04/27/18 Brimonidine Tartrate [Alphagan 0.2% -] 1 drop BID 04/27/18 Cinacalcet HCl [Sensipar] 60 mg PO DAILY 04/27/18 Clopidogrel Bisulfate [Plavix] 75 mg PO DAILY 04/27/18 Docusate Sodium [Colace] 100 mg PO BID 04/27/18 Emtricitabine/Tenofov Alafenam [Descovy 200-25 mg Tablet (Nf)] 1 each PO DAILY 04/27/18 Ezetimibe 10 mg PO DAILY 04/27/18 Latanoprost 0.005% Eye Drops [Xalatan 0.005% Eye Drops -] 1 drop HS 04/27/18 Losartan Potassium 25 mg PO DAILY 04/27/18 Megestrol Acetate 20 ml PO DAILY 04/27/18 Metoprolol Tartrate [Lopressor] 25 mg PO BID 04/27/18 Mycophenolate Mofetil 1,000 mg PO BID 04/27/18 Nifedipine ER [Procardia Xl -] 60 mg PO DAILY 04/27/18 Paricalcitol 1 mcg PO DAILY 04/27/18 Raltegravir [Isentress -] 400 mg PO BID 04/27/18 Tacrolimus [Prograf] 4 mg PO DAILY 04/28/18 Tacrolimus [Prograf] 5 mg PO DAILY 04/28/18 Family Disease History - Family Disease History Family History: Denies Review of Systems - Review of Systems Constitutional: reports: Weakness Eyes: reports: No Symptoms HENT: reports: No Symptoms Neck: reports: No Symptoms Cardiovascular: reports: No Symptoms Respiratory: reports: No Symptoms Gastrointestinal: reports: No Symptoms Genitourinary: reports: No Symptoms Breasts: reports: No Symptoms Reported Musculoskeletal: reports: Extremity Pain, Joint Pain, Muscle Weakness Integumentary: reports: Other (gangrene) Neurological: reports: Weakness Endocrine: reports: No Symptoms Hematology/Lymphatic: reports: No Symptoms Psychiatric: reports: No Symptoms - Risk Factors Known Risk Factors: Yes: Age, Gender, Hypertension, Physical Inactivity, Race, Other (PAD) Vital Signs: Vital Signs Temperature 98.6 F 05/01/18 20:31 Pulse Rate 80 05/01/18 20:31 Respiratory Rate 18 05/01/18 20:31 Blood Pressure 142/75 05/01/18 20:31 O2 Sat by Pulse Oximetry (%) 96 05/01/18 21:00 Constitutional: Yes: Calm Eyes: Yes: WNL HENT: Yes: WNL Neck: Yes: WNL Respiratory: Yes: WNL Gastrointestinal: Yes: Soft Renal/: No: Anuria Heart Sounds: Yes: S1, S2, S4 Murmur: Yes: Systolic Murmur, Grade 2 Musculoskeletal: Yes: Joint Stiffness, Muscle Weakness Extremities: Yes: Cool, Other (right foot bandaged; gangrenous big toe) Integumentary: Yes: Other Neurological: Yes: Alert, Oriented, Weakness Psychiatric: Yes: WNL - Other Data Labs, Other Data: CBC, BMP 04/28/18 06:30 04/30/18 06:30 INR, PTT INR 1.26 (0.83-1.09) H 05/01/18 13:00 Imaging - Results Chest X-ray: Image Reviewed EKG: Image Reviewed Problem List - Problems (1) PAD (peripheral artery disease) Code(s): I73.9 - PERIPHERAL VASCULAR DISEASE, UNSPECIFIED (2) Diabetes Code(s): E11.9 - TYPE 2 DIABETES MELLITUS WITHOUT COMPLICATIONS (3) Diabetic foot ulcer Assessment/Plan: For planned right toe amputation. Await results of recent stress MIBI prior to giving cardiac clearance. Code(s): E11.621 - TYPE 2 DIABETES MELLITUS WITH FOOT ULCER; L97.509 - NON- PRESSURE CHRONIC ULCER OTH PRT UNSP FOOT W UNSP SEVERITY (4) HIV (human immunodeficiency virus infection) Code(s): B20 - HUMAN IMMUNODEFICIENCY VIRUS [HIV] DISEASE (5) HTN (hypertension) Assessment/Plan: On losartan, nifedipine, metoprolol. F/u ECHO for LVEF, wall thickness, valve status. Code(s): I10 - ESSENTIAL (PRIMARY) HYPERTENSION (6) Renal transplant recipient Code(s): Z94.0 - KIDNEY TRANSPLANT STATUS (7) Type 2 diabetes mellitus with diabetic peripheral angiopathy with gangrene Code(s): E11.52 - TYPE 2 DIABETES W DIABETIC PERIPHERAL ANGIOPATHY W GANGRENE Qualifiers: Diabetes mellitus physical therapist assistant insulin use: unspecified physical therapist assistant insulin use status Qualified Code(s): E11.52 - Type 2 diabetes mellitus with diabetic peripheral angiopathy with gangrene (8) Hyperlipidemia Assessment/Plan: On atorvastatin and Zetia. F/u lipid panel. Code(s): E78.5 - HYPERLIPIDEMIA, UNSPECIFIED
--- NOTE | 2018-05-02 06:51 | PN ---
Progress Note, Physician Chief Complaint: Pt Alert; no complaints. History of Present Illness: 72 y/o black male presenting to [facility] ER on referral from Dr. Mooney with concern for gangrenous infection to first toe of right foot. Written orders requesting admission to Dr. Wilson service with consultation to Drs. Loyola and Lily. Pt endorses pain to the area made worse with movement of the toe. States symptoms started approx. 1 month ago and has progressively worsened. H/o of gout in the toe. Denies fevers or chills. Was evaluated at [facility] for right ankle swelling and pain to right first toe. Found to be febrile and tachycardic. Received IV antibiotics. Unknown hospital course. Pt currently a resident at [facility] PCP: Dr. Se[facility] Hx: - CKD s/p renal transplant, on Tacrolimus - A-fib, on ASA, Plavix, and Coumadin. Coumadin held this morning and pt received PO Vit. K - HIV, last viral load zero. Unknown CD4 count. - Gout on Allopurinol - DM - HIV - Carotid plaque - PAD s/p stenting, location unknown --Pt says he had a recent stress MIBI (late 2017): ?results. - Current Medication List Current Medications: Active Medications Acetaminophen (Tylenol -) 650 mg PO Q6H PRN PRN Reason: pain Last Admin: 05/01/18 22:06 Dose: 650 mg Allopurinol (Zyloprim -) 100 mg PO DAILY [facility] Last Admin: 05/01/18 10:26 Dose: 100 mg Atorvastatin Calcium (Lipitor -) 80 mg PO HS [facility] Last Admin: 05/01/18 21:54 Dose: 80 mg Brimonidine Tartrate (Alphagan 0.2% -) 1 drop OD BID [facility] Last Admin: 05/01/18 22:11 Dose: 1 drop Cinacalcet (Sensipar -) 60 mg PO DAILY [facility] Last Admin: 05/01/18 10:25 Dose: 60 mg Docusate Sodium (Colace -) 100 mg PO BID [facility] Last Admin: 05/01/18 21:55 Dose: Not Given Ezetimibe (Zetia -) 10 mg PO DAILY [facility] Last Admin: 05/01/18 10:25 Dose: 10 mg Piperacillin Sod/Tazobactam (Sod 4.5 gm/ Dextrose) 100 mls @ 200 mls/hr IVPB Q8H-IV [facility]; Protocol Last Admin: 05/02/18 01:16 Dose: Not Given Latanoprost (Xalatan 0.005% Eye Drops -) 1 drop OD HS [facility] Last Admin: 05/01/18 22:12 Dose: 1 drop Losartan Potassium (Cozaar -) 25 mg PO DAILY [facility] Last Admin: 05/01/18 10:26 Dose: 25 mg Megestrol Acetate (Megace Oral Suspension -) 800 mg PO DAILY [facility] Last Admin: 05/01/18 10:32 Dose: 800 mg Metoprolol Tartrate (Lopressor -) 25 mg PO BID [facility] Last Admin: 05/01/18 21:54 Dose: 25 mg Mycophenolate Mofetil (Cellcept -) 1,000 mg PO BID [facility] Last Admin: 05/01/18 21:55 Dose: 1,000 mg Nifedipine (Procardia Xl -) 60 mg PO DAILY [facility] Last Admin: 05/01/18 10:25 Dose: 60 mg Paricalcitol (Zemplar -) 1 mcg PO DAILY [facility] Last Admin: 05/01/18 10:33 Dose: 1 mcg Raltegravir (Isentress -) 400 mg PO BID [facility] Last Admin: 05/01/18 21:54 Dose: 400 mg Tacrolimus (Prograf) 5 mg PO AM [facility] Last Admin: 05/02/18 06:33 Dose: Not Given Tacrolimus (Prograf) 4 mg PO HS [facility] Last Admin: 05/01/18 21:54 Dose: 4 mg - Objective Vital Signs: Vital Signs Temperature 98.6 F 05/01/18 20:31 Pulse Rate 80 05/01/18 20:31 Respiratory Rate 18 05/01/18 20:31 Blood Pressure 142/75 05/01/18 20:31 O2 Sat by Pulse Oximetry (%) 96 05/01/18 21:00 Constitutional: Yes: No Distress Eyes: Yes: WNL HENT: Yes: WNL Neck: Yes: WNL Cardiovascular: Yes: Regular Rate and Rhythm Respiratory: Yes: WNL Gastrointestinal: Yes: Soft ...Rectal Exam: Yes: Deferred Genitourinary: No: Anuria Musculoskeletal: Yes: Muscle Weakness Extremities: Yes: Other (gangrenous rt big toe) Edema: No Peripheral Pulses WNL: No Peripheral Pulses: Left Doralis Pedis: 1+, Right Dorsalis Pedis: 1+ Integumentary: Yes: Other Wound/Incision: Yes: Dressing Dry and Intact Neurological: Yes: Alert, Oriented, Weakness Psychiatric: Yes: WNL Labs: CBC, BMP 04/28/18 06:30 04/30/18 06:30 INR, PTT INR 1.26 (0.83-1.09) H 05/01/18 13:00 Abnormal Lab Results 05/03/18 05/03/18 06:30 12:35 WBC 3.8 L RBC 3.06 L Hgb 8.3 L Hct 26.6 L MCHC 31.1 L RDW 18.0 H Neutrophils % 42.5 L Monocytes % 31.7 H Monocytes % (Manual) 26 H Chloride 113 H Anion Gap 6 L Problem List - Problems (1) PAD (peripheral artery disease) Assessment/Plan: For amputation of right big toe in am. Code(s): I73.9 - PERIPHERAL VASCULAR DISEASE, UNSPECIFIED (2) Diabetes Code(s): E11.9 - TYPE 2 DIABETES MELLITUS WITHOUT COMPLICATIONS (3) Diabetic foot ulcer Assessment/Plan: Stress PET/MIBI report from 01/2018: no ischemia. From cardiac perspective, there are no absolute contraindications for Mr. Coley to undergo gangrenous toe amputation. Code(s): E11.621 - TYPE 2 DIABETES MELLITUS WITH FOOT ULCER; L97.509 - NON- PRESSURE CHRONIC ULCER OTH PRT UNSP FOOT W UNSP SEVERITY (4) HIV (human immunodeficiency virus infection) Code(s): B20 - HUMAN IMMUNODEFICIENCY VIRUS [HIV] DISEASE (5) HTN (hypertension) Assessment/Plan: On losartan, nifedipine, metoprolol. ECHO: normal LVEF; mild LVH; moderate TR; mild MR. Code(s): I10 - ESSENTIAL (PRIMARY) HYPERTENSION (6) Renal transplant recipient Code(s): Z94.0 - KIDNEY TRANSPLANT STATUS (7) Type 2 diabetes mellitus with diabetic peripheral angiopathy with gangrene Code(s): E11.52 - TYPE 2 DIABETES W DIABETIC PERIPHERAL ANGIOPATHY W GANGRENE Qualifiers: Diabetes mellitus nursing home insulin use: unspecified anesthesiology faculty insulin use status Qualified Code(s): E11.52 - Type 2 diabetes mellitus with diabetic peripheral angiopathy with gangrene (8) Hyperlipidemia Code(s): E78.5 - HYPERLIPIDEMIA, UNSPECIFIED
[2018-05-02 07:40] LABS: HEMOGLOBIN 8.5 GM/dL (11.7-16.9); MCH 27.4 pg (25.7-33.7); MCHC 31.5 g/dl (32.0-35.9); MEAN CELL VOLUME 87.1 fl (80-96); MEAN PLT VOLUME 10.7 fl (7.5-11.1); PLATELET COUNT 182 K/MM3 (134-434); RDW 17.9 % (11.9-15.9); WHITE BLOOD COUNT 3.2 K/mm3 (4.0-10.0)
[2018-05-02 08:13] LABS: ALBUMIN 2.7 g/dl (3.4-5.0); ALK PHOS 49 U/L (45-117); ANION GAP 6 MMOL/L (8-16); BILIRUBIN,TOTAL 0.5 mg/dL (0.2-1); BLOOD UREA NITROGEN 21 mg/dL (7-18); CALCIUM 8.7 mg/dL (8.5-10.1); CHLORIDE 114 mmol/L (98-107); CHOLESTEROL 78 mg/dL (50-200); CO2 20 mmol/L (21-32); CREATININE 1.6 mg/dL (0.55-1.3); GLUCOSE,RANDOM 89 mg/dL (74-106); HDL CHOLESTEROL 25 mg/dL (40-60); POTASSIUM 4.1 mmol/L (3.5-5.1); SGOT/AST 13 U/L (15-37); SGPT/ALT 10 U/L (13-61); SODIUM 140 mmol/L (136-145); TOT PROT 6.2 g/dl (6.4-8.2); TRIGLYCERIDES 139 mg/dL (0-150)
[2018-05-02 08:44] LABS: INR 1.27 (0.83-1.09)
[2018-05-02] MEDS ORDERED: TACROLIMUS ANHYDROUS 5 MG CAPSULE PO SCH (09:18)
[2018-05-02] MEDS ORDERED: TACROLIMUS ANHYDROUS 1 MG CAPSULE PO SCH (09:24)
--- NOTE | 2018-05-02 10:00 | PN ---
Progress Note, Physician History of Present Illness: stable no complaints for surgery today - Current Medication List Current Medications: Active Medications Acetaminophen (Tylenol -) 650 mg PO Q6H PRN PRN Reason: pain Last Admin: 05/01/18 22:06 Dose: 650 mg Allopurinol (Zyloprim -) 100 mg PO DAILY [facility] Last Admin: 05/01/18 10:26 Dose: 100 mg Atorvastatin Calcium (Lipitor -) 80 mg PO HS [facility] Last Admin: 05/01/18 21:54 Dose: 80 mg Brimonidine Tartrate (Alphagan 0.2% -) 1 drop OD BID [facility] Last Admin: 05/01/18 22:11 Dose: 1 drop Cinacalcet (Sensipar -) 60 mg PO DAILY [facility] Last Admin: 05/01/18 10:25 Dose: 60 mg Docusate Sodium (Colace -) 100 mg PO BID [facility] Last Admin: 05/01/18 21:55 Dose: Not Given Ezetimibe (Zetia -) 10 mg PO DAILY [facility] Last Admin: 05/01/18 10:25 Dose: 10 mg Piperacillin Sod/Tazobactam (Sod 4.5 gm/ Dextrose) 100 mls @ 200 mls/hr IVPB Q8H-IV [facility]; Protocol Last Admin: 05/02/18 01:16 Dose: Not Given Latanoprost (Xalatan 0.005% Eye Drops -) 1 drop OD [facility] Last Admin: 05/01/18 22:12 Dose: 1 drop Losartan Potassium (Cozaar -) 25 mg PO DAILY [facility] Last Admin: 05/01/18 10:26 Dose: 25 mg Megestrol Acetate (Megace Oral Suspension -) 800 mg PO DAILY [facility] Last Admin: 05/01/18 10:32 Dose: 800 mg Metoprolol Tartrate (Lopressor -) 25 mg PO BID [facility] Last Admin: 05/01/18 21:54 Dose: 25 mg Mycophenolate Mofetil (Cellcept -) 1,000 mg PO BID [facility] Last Admin: 05/01/18 21:55 Dose: 1,000 mg Nifedipine (Procardia Xl -) 60 mg PO DAILY [facility] Last Admin: 05/01/18 10:25 Dose: 60 mg Paricalcitol (Zemplar -) 1 mcg PO DAILY [facility] Last Admin: 05/01/18 10:33 Dose: 1 mcg Raltegravir (Isentress -) 400 mg PO BID [facility] Last Admin: 05/01/18 21:54 Dose: 400 mg Tacrolimus (Prograf) 4 mg PO HS [facility] Last Admin: 05/01/18 21:54 Dose: 4 mg Tacrolimus (Prograf) 4 mg PO AM [facility] - Objective Vital Signs: Vital Signs Temperature 98.6 F 05/01/18 20:31 Pulse Rate 80 05/01/18 20:31 Respiratory Rate 18 05/01/18 20:31 Blood Pressure 142/75 05/01/18 20:31 O2 Sat by Pulse Oximetry (%) 96 05/01/18 21:00 Constitutional: Yes: No Distress, Calm Cardiovascular: Yes: S1, S2 Respiratory: Yes: Regular, CTA Bilaterally Gastrointestinal: Yes: Normal Bowel Sounds, Soft Extremities: Yes: Other Wound/Incision: Yes: Dressing Dry and Intact Neurological: Yes: Alert, Oriented Psychiatric: Yes: Alert, Oriented Labs: CBC, BMP 05/02/18 06:10 05/02/18 06:10 INR, PTT INR 1.27 (0.83-1.09) H 05/02/18 07:40 Assessment/Plan CKD kidney tranplant HIV HTN . DM cad HLD wound infection vre patient with vre wound infection and other organisms plan patient for or today will see what the biopsy post op shows rest as per the team final plan after that
[2018-05-02] MEDS ORDERED: PIPERACILLIN/TAZOBACTAM 4.5 GM VIAL IVPB ONE (10:19)
[2018-05-02] MEDS ORDERED: DEXTROSE 5%-WATER 100 ML IVPB ONE (10:20)
[2018-05-02] MEDS: LOSARTAN POTASSIUM 25 MG TABLET PO SCH (10:22)
[2018-05-02] MEDS: NIFEdipine E.R 60 MG TABLET (UD) PO SCH (10:22)
--- NOTE | 2018-05-02 10:28 | PN ---
Progress Note (short form) - Note Progress Note: Text received from Dr. Solorio confirming that OK to proceed that vascular status would support healing of amputation.
[2018-05-02] MEDS: METOPROLOL TARTRATE 50 MG TABLET (FP) PO SCH ×2 (10:32→22:21)
[2018-05-02] MEDS: BRIMONIDINE TARTRATE 0.2% OPHTHALMIC 5 ML BOTTLE OD SCH ×2 (10:35→22:28)
[2018-05-02] MEDS: MYCOPHENOLATE MOFETIL 500 MG TABLET PO SCH ×2 (10:37→22:22)
[2018-05-02] MEDS: EMTRICITABINE/TENOFOV ALAFENAM (DESCOVY) TABLET PO SCH (10:37)
[2018-05-02] MEDS: DOCUSATE SODIUM 100 MG CAPSULE (FP) PO SCH ×2 (10:37→22:21)
[2018-05-02] MEDS: MEGESTROL ACETATE 400 MG/10 ML UNIT DOSE CUP PO SCH (10:38)
[2018-05-02] MEDS: RALTEGRAVIR POTASSIUM 400 MG TAB PO SCH ×2 (10:38→22:22)
[2018-05-02] MEDS: PARICALCITOL 1 MCG CAP PO SCH (10:39)
[2018-05-02] MEDS: CINACALCET HCL 30 MG TAB (FP) PO SCH (10:39)
[2018-05-02] MEDS: ALLOPURINOL 100 MG TABLET (FP) PO SCH (10:40)
[2018-05-02] MEDS: EZETIMIBE 10 MG TABLET (FP) PO SCH (10:40)
--- NOTE | 2018-05-02 11:06 | PN ---
Progress Note (short form) - Note Progress Note: arterial duplex reviewed. mild stenosis at distal end of stents. normal flow in tibial vessel. cleared for toe amp. can follow up as outpatient
[2018-05-02] MEDS ORDERED: BUPIVACAINE HCL/PF 0.5% (5MG/ML) 10 ML VIAL ONE (11:43)
[2018-05-02] MEDS ORDERED: ONDANSETRON 4 MG/2 ML VIAL IVPUSH PRN ×2 (12:03→15:39)
[2018-05-02] MEDS ORDERED: MIDAZOLAM HCL 2 MG/2 ML SINGLE DOSE VIAL ONE (12:11)
[2018-05-02] MEDS ORDERED: LACTATED RINGERS SOLUTION 1,000 ML IV SCH (12:15)
[2018-05-02] MEDS ORDERED: PROPOFOL 20 ML ONE (12:18)
[2018-05-02] MEDS ORDERED: LIDOCAINE HCL/PF 2% SDV 5ML VIAL ONE (12:18)
[2018-05-02] MEDS ORDERED: BUPIVACAINE HCL/PF (5 MG/ML) 30 ML VIAL IJ ONE (12:25)
[2018-05-02] MEDS ORDERED: ceFAZolin SODIUM 1 GM VIAL ONE (12:51)
[2018-05-02] MEDS ORDERED: ceFAZolin SODIUM 1 GM VIAL IVPB ONE (13:00)
[2018-05-02] MEDS ORDERED: BACITRACIN 50,000 UNITS VIAL TP ONE (13:00)
--- NOTE | 2018-05-02 13:13 | OP ---
Operative Note - Note: Operative Date: 05/02/18 Pre-Operative Diagnosis: gangarene right big toe Operation: amputation right big toe Findings: necrotic bone and soft tissue Post-Operative Diagnosis: Same as Pre-op Surgeon: Didier Mooney [employer] Assistant: Darian Vo Anesthesia: Local, MAC Estimated Blood Loss (mls): 30 Instrument used (Debridements only): blade Drains & Tubes with Location: / iodoform packing Operative Report Dictated: Yes
--- NOTE | 2018-05-02 14:39 | ECHO ---
Name: FRANCISCO OLEARY Exam:Adult Echocardiogram Study Date: 05/02/2018 09:49 AM Age: 72 yrs Reason For Study: HTN;PAD,S/P RENAL TRANSPLANT Height: 75 in Weight: 182 lb BSA: 2.1 m2 MMode/2D Measurements & Calculations IVSd: 1.2 cm Ao root diam: 3.4 cm LVIDd: 4.8 cm LA dimension: 3.3 cm LVIDs: 2.5 cm LVPWd: 1.4 cm EDV(Teich): 107.0 ml LAV (MOD-bp): 90.3 ml ESV(Teich): 22.1 ml Doppler Measurements & Calculations MV E max michael: 85.9 cm/sec MR max michael: 446.9 cm/sec MV A max michael: 127.6 cm/sec MR max P.0 mmHg MV E/A: 0.67 MV dec time: 0.11 sec TV V2 max: 256.5 cm/sec TR max michael: 304.1 cm/sec TV max P.3 mmHg TR max P.0 mmHg Med Peak E' Michael: 7.6 cm/sec PI Vmax: 185.3 cm/sec Med E/e': 11.3 Lat Peak E' Michael: 8.3 cm/sec Lat E/e': 10.4 Procedure A complete two-dimensional transthoracic echocardiogram was performed (2D, M-mode, Doppler and color flow Doppler). Left Ventricle The left ventricle is normal in size. There is mild concentric left ventricular hypertrophy. Left brigid tricular systolic function is normal. Ejection Fraction = >70%. No regional wall motion abnormalities noted. Right Ventricle The right ventricle is normal size. The right ventricular systolic function is normal. Atria The left atrial size is normal. Right atrial size is normal. Mitral Valve The mitral valve is normal in structure and function. There is mild mitral regurgitation. Tricuspid Valve The tricuspid valve is normal in structure and function. There is moderate tricuspid regurgitation. P ulmonary artery systolic pressure is at least 42 mmHg assuming RA pressure of 3 mmHg. Aortic Valve There is mild aortic sclerosis.;. No aortic regurgitation is present. Pulmonic Valve The pulmonic valve is not well visualized. Great Vessels The aortic root is normal size. Pericardium/Pleura There is no pericardial effusion. Interpretation Summary The left ventricle is normal in size. There is mild concentric left ventricular hypertrophy. Left ventricular systolic function is normal. No regional wall motion abnormalities noted. Ejection Fraction = >70%. The right ventricular systolic function is normal. The left atrial size is normal. Right atrial size is normal. There is mild mitral regurgitation. There is moderate tricuspid regurgitation. Pulmonary artery systolic pressure is at least 42 mmHg assuming RA pressure of 3 mmHg There is mild aortic sclerosis. There is no pericardial effusion. Previous study is not available for comparison Cole Severino MD 05/02/2018 02:38 PM
--- NOTE | 2018-05-02 15:24 | PN ---
Progress Note, Physician History of Present Illness: Pt seen and examined at bedside. He had the toe amputation today. He denies shortness of breath. - Current Medication List Current Medications: Active Medications Acetaminophen (Tylenol -) 650 mg PO Q6H PRN PRN Reason: pain Last Admin: 05/01/18 22:06 Dose: 650 mg Allopurinol (Zyloprim -) 100 mg PO DAILY [facility] Last Admin: 05/02/18 10:40 Dose: Not Given Atorvastatin Calcium (Lipitor -) 80 mg PO HS [facility] Last Admin: 05/01/18 21:54 Dose: 80 mg Brimonidine Tartrate (Alphagan 0.2% -) 1 drop OD BID [facility] Last Admin: 05/02/18 10:35 Dose: 1 drop Cinacalcet (Sensipar -) 60 mg PO DAILY [facility] Last Admin: 05/02/18 10:39 Dose: 60 mg Docusate Sodium (Colace -) 100 mg PO BID [facility] Last Admin: 05/02/18 10:37 Dose: Not Given Ezetimibe (Zetia -) 10 mg PO DAILY [facility] Last Admin: 05/02/18 10:40 Dose: Not Given Fentanyl (Sublimaze Injection -) 25 mcg IVPUSH [id number] PRN PRN Reason: PAIN-PACU ORDER X 4 DOSES ONLY Stop: 05/03/18 12:02 Piperacillin Sod/Tazobactam (Sod 4.5 gm/ Dextrose) 100 mls @ 200 mls/hr IVPB Q8H-IV [facility]; Protocol Last Admin: 05/02/18 10:54 Dose: Not Given Lactated Ringer's (Lactated Ringers Solution) 1,000 mls @ 75 mls/hr IV ASDIR [facility] Latanoprost (Xalatan 0.005% Eye Drops -) 1 drop OD HS [facility] Last Admin: 05/01/18 22:12 Dose: 1 drop Losartan Potassium (Cozaar -) 25 mg PO DAILY [facility] Last Admin: 05/02/18 10:22 Dose: 25 mg Megestrol Acetate (Megace Oral Suspension -) 800 mg PO DAILY [facility] Last Admin: 05/02/18 10:38 Dose: Not Given Metoprolol Tartrate (Lopressor -) 25 mg PO BID [facility] Last Admin: 05/02/18 10:32 Dose: 25 mg Mycophenolate Mofetil (Cellcept -) 1,000 mg PO BID [facility] Last Admin: 05/02/18 10:37 Dose: 1,000 mg Nifedipine (Procardia Xl -) 60 mg PO DAILY [facility] Last Admin: 05/02/18 10:22 Dose: 60 mg Ondansetron HCl (Zofran Injection) 4 mg IVPUSH Q6H PRN PRN Reason: NAUSEA AND/OR VOMITING Stop: 05/03/18 12:02 Paricalcitol (Zemplar -) 1 mcg PO DAILY [facility] Last Admin: 05/02/18 10:39 Dose: 1 mcg Raltegravir (Isentress -) 400 mg PO BID [facility] Last Admin: 05/02/18 10:38 Dose: 400 mg Tacrolimus (Prograf) 4 mg PO HS [facility] Last Admin: 05/01/18 21:54 Dose: 4 mg Tacrolimus (Prograf) 4 mg PO AM [facility] - Objective Vital Signs: Vital Signs Temperature 98.5 F 05/02/18 13:15 Pulse Rate 76 05/02/18 14:45 Respiratory Rate 17 05/02/18 14:45 Blood Pressure 151/72 05/02/18 14:45 O2 Sat by Pulse Oximetry (%) 98 05/02/18 14:45 Constitutional: Yes: Calm Eyes: Yes: Conjunctiva Clear HENT: Yes: Atraumatic Cardiovascular: Yes: S1, S2 Respiratory: Yes: CTA Bilaterally Gastrointestinal: Yes: Soft Genitourinary: Yes: WNL Edema: No Neurological: Yes: Oriented Psychiatric: Yes: Oriented Labs: CBC, BMP 05/02/18 06:10 05/02/18 06:10 INR, PTT INR 1.27 (0.83-1.09) H 05/02/18 07:40 Problem List - Problems (1) CKD (chronic kidney disease) Code(s): N18.9 - CHRONIC KIDNEY DISEASE, UNSPECIFIED Assessment/Plan Current Medications Generic Name Dose Route Start Last Admin Trade Name Freq PRN Reason Stop Dose Admin Acetaminophen 650 mg 04/28/18 19:46 05/01/18 22:06 Tylenol - PO 650 mg Q6H PRN Administration pain Allopurinol 100 mg 04/28/18 10:00 05/02/18 10:40 Zyloprim - PO Not Given DAILY [facility] Atorvastatin Calcium 80 mg 04/28/18 22:00 05/01/18 21:54 Lipitor - PO 80 mg HS [facility] Administration Brimonidine Tartrate 1 drop 04/28/18 10:00 05/02/18 10:35 Alphagan 0.2% - OD 1 drop BID [facility] Administration Cinacalcet 60 mg 04/28/18 10:00 05/02/18 10:39 Sensipar - PO 60 mg DAILY [facility] Administration Docusate Sodium 100 mg 04/28/18 10:00 05/02/18 10:37 Colace - PO Not Given BID [facility] Ezetimibe 10 mg 04/28/18 10:00 05/02/18 10:40 Zetia - PO Not Given DAILY [facility] Fentanyl 25 mcg 05/02/18 12:03 Sublimaze Injection - IVPUSH 05/03/18 12:02 [id number] PRN PAIN-PACU ORDER X 4 DOSES ONLY Piperacillin Sod/Tazobactam 100 mls @ 200 mls/hr 04/27/18 18:00 05/02/18 10: 54 Sod 4.5 gm/ Dextrose IVPB Not Given Q8H-IV [facility] Protocol Lactated Ringer's 1,000 mls @ 75 mls/hr 05/02/18 12:15 Lactated Ringers Solution IV ASDIR [facility] Latanoprost 1 drop 04/28/18 22:00 05/01/18 22:12 Xalatan 0.005% Eye Drops - OD 1 drop HS [facility] Administration Losartan Potassium 25 mg 04/28/18 10:00 05/02/18 10:22 Cozaar - PO 25 mg DAILY [facility] Administration Megestrol Acetate 800 mg 04/28/18 10:00 05/02/18 10:38 Megace Oral Suspension - PO Not Given DAILY [facility] Metoprolol Tartrate 25 mg 04/28/18 10:00 05/02/18 10:32 Lopressor - PO 25 mg BID [facility] Administration Mycophenolate Mofetil 1,000 mg 04/28/18 10:00 05/02/18 10:37 Cellcept - PO 1,000 mg BID [facility] Administration Nifedipine 60 mg 04/28/18 10:00 05/02/18 10:22 Procardia Xl - PO 60 mg DAILY [facility] Administration Ondansetron HCl 4 mg 05/02/18 12:03 Zofran Injection IVPUSH 05/03/18 12:02 Q6H PRN NAUSEA AND/OR VOMITING Paricalcitol 1 mcg 04/28/18 10:00 05/02/18 10:39 Zemplar - PO 1 mcg DAILY [facility] Administration Raltegravir 400 mg 04/28/18 10:00 05/02/18 10:38 Isentress - PO 400 mg BID [facility] Administration Tacrolimus 4 mg 04/28/18 22:00 05/01/18 21:54 Prograf PO 4 mg HS [facility] Administration Tacrolimus 4 mg 05/02/18 09:24 Prograf PO AM [facility] Impression 1. CKD 2. kidney tranplant 3. HIV 4. HTN 5. DM 6. cad 7. HLD 8. small hypodense mass in kidney Plan - multiple attempts made to reach Dr Zamarripa at [facility]. 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
[2018-05-02] MEDS: LACTATED RINGERS SOLUTION 1,000 ML IV SCH (15:40)
[2018-05-02] MEDS ORDERED: PIPERACILLIN/TAZOB 4.5 GM 4.5 GM in DEXTROSE 5%-WATER 100 ML IVPB SCH (18:00)
[2018-05-02] MEDS ORDERED: oxyCODONE HCL 5 MG TABLET PO ONE (21:15)
[2018-05-02] MEDS ORDERED: ACETAMINOPHEN 325 MG TABLET (FP) PO ONE (21:15)
[2018-05-02] MEDS: ATORVASTATIN CA 80 MG TABLET (FP) PO SCH (22:21)
[2018-05-02] MEDS: TACROLIMUS ANHYDROUS 1 MG CAPSULE PO SCH (22:23)
[2018-05-02] MEDS: LATANOPROST 0.005% OPHTH SOLN 2.5ML BOTTLE OD SCH (22:28)
--- NOTE | 2018-05-02 22:56 | PN ---
Progress Note, Physician History of Present Illness: Pt tolerated surgery - Current Medication List Current Medications: Active Medications Acetaminophen (Tylenol -) 650 mg PO Q6H PRN PRN Reason: PAIN 4-6 Allopurinol (Zyloprim -) 100 mg PO DAILY [facility] Atorvastatin Calcium (Lipitor -) 80 mg PO HS [facility] Last Admin: 05/02/18 22:21 Dose: 80 mg Brimonidine Tartrate (Alphagan 0.2% -) 1 drop OD BID [facility] Last Admin: 05/02/18 22:28 Dose: Not Given Cinacalcet (Sensipar -) 60 mg PO DAILY [facility] Docusate Sodium (Colace -) 100 mg PO BID [facility] Last Admin: 05/02/18 22:21 Dose: 100 mg Ezetimibe (Zetia -) 10 mg PO DAILY [facility] Lactated Ringer's (Lactated Ringers Solution) 1,000 mls @ 75 mls/hr IV ASDIR [facility] Last Admin: 05/02/18 15:40 Dose: 75 mls/hr Piperacillin Sod/Tazobactam (Sod 4.5 gm/ Dextrose) 100 mls @ 200 mls/hr IVPB Q8H-IV [facility]; Protocol Piperacillin Sod/Tazobactam (Sod 4.5 gm/ Dextrose) 100 mls @ 200 mls/hr IVPB Q8H-IV [facility]; Protocol Stop: 05/03/18 17:59 Last Admin: 05/02/18 17:55 Dose: Not Given Latanoprost (Xalatan 0.005% Eye Drops -) 1 drop OD HS [facility] Last Admin: 05/02/18 22:28 Dose: 1 drop Losartan Potassium (Cozaar -) 25 mg PO DAILY [facility] Megestrol Acetate (Megace Oral Suspension -) 800 mg PO DAILY [facility] Metoprolol Tartrate (Lopressor -) 25 mg PO BID [facility] Last Admin: 05/02/18 22:21 Dose: 25 mg Mycophenolate Mofetil (Cellcept -) 1,000 mg PO BID [facility] Last Admin: 05/02/18 22:22 Dose: 1,000 mg Nifedipine (Procardia Xl -) 60 mg PO DAILY [facility] Ondansetron HCl (Zofran Injection) 4 mg IVPUSH Q6H PRN PRN Reason: NAUSEA AND/OR VOMITING Stop: 05/03/18 12:02 Paricalcitol (Zemplar -) 1 mcg PO DAILY [facility] Raltegravir (Isentress -) 400 mg PO BID [facility] Last Admin: 05/02/18 22:22 Dose: 400 mg Tacrolimus (Prograf) 4 mg PO HS [facility] Last Admin: 05/02/18 22:23 Dose: 4 mg Tacrolimus (Prograf) 4 mg PO AM [facility] - Objective Vital Signs: Vital Signs Temperature 98.4 F 05/02/18 20:16 Pulse Rate 79 05/02/18 20:16 Respiratory Rate 20 05/02/18 20:16 Blood Pressure 130/58 L 05/02/18 20:16 O2 Sat by Pulse Oximetry (%) 97 05/02/18 15:43 Neck: Yes: WNL, Supple Cardiovascular: Yes: WNL, Regular Rate and Rhythm Respiratory: Yes: WNL, Regular, CTA Bilaterally Gastrointestinal: Yes: WNL, Normal Bowel Sounds, Soft Extremities: Yes: Other (Rt foot in dressing) Labs: CBC, BMP 05/02/18 06:10 05/02/18 06:10 INR, PTT INR 1.27 (0.83-1.09) H 05/02/18 07:40 Problem List - Problems (1) Diabetic foot ulcer Assessment/Plan: S/P amputation Rt big toe Cont IV antibxs Wound culture (+) for staph aureus/Vr Ec faecalis Code(s): E11.621 - TYPE 2 DIABETES MELLITUS WITH FOOT ULCER; L97.509 - NON- PRESSURE CHRONIC ULCER OTH PRT UNSP FOOT W UNSP SEVERITY (2) Diabetes Code(s): E11.9 - TYPE 2 DIABETES MELLITUS WITHOUT COMPLICATIONS (3) CKD (chronic kidney disease) Code(s): N18.9 - CHRONIC KIDNEY DISEASE, UNSPECIFIED (4) HIV (human immunodeficiency virus infection) Assessment/Plan: Cont antivirals Code(s): B20 - HUMAN IMMUNODEFICIENCY VIRUS [HIV] DISEASE (5) HTN (hypertension) Assessment/Plan: BP stable Cont losartan/metoprolol/nifedipine/ Code(s): I10 - ESSENTIAL (PRIMARY) HYPERTENSION (6) Renal transplant recipient Assessment/Plan: Cont prograf/sensipar/cellcept Code(s): Z94.0 - KIDNEY TRANSPLANT STATUS (7) HLD (hyperlipidemia) Assessment/Plan: Cont lipitor/zetia Code(s): E78.5 - HYPERLIPIDEMIA, UNSPECIFIED
[2018-05-03] MEDS: PIPERACILLIN/TAZOB 4.5 GM 4.5 GM in DEXTROSE 5%-WATER 100 ML IVPB SCH ×2 (01:02→10:38)
[2018-05-03] MEDS: LACTATED RINGERS SOLUTION 1,000 ML IV SCH (02:40)
[2018-05-03] MEDS: TACROLIMUS ANHYDROUS 1 MG CAPSULE PO SCH ×2 (06:42→22:01)
[2018-05-03] MEDS: ACETAMINOPHEN 325 MG TABLET (FP) PO PRN ×3 (06:43→20:35)
[2018-05-03 07:49] LABS: BASO % 0.2 % (0-2.0); EOS % 1.2 % (0-4.5); HEMATOCRIT 26.6 % (35.4-49); HEMOGLOBIN 8.3 GM/dL (11.7-16.9); LYMPH % 24.4 % (8-40); MCHC 31.1 g/dl (32.0-35.9); MEAN CELL VOLUME 86.8 fl (80-96); MEAN PLT VOLUME 10.7 fl (7.5-11.1); MONO % 31.7 % (3.8-10.2); NEUT % 42.5 % (42.8-82.8); PLATELET COUNT 178 K/MM3 (134-434); RBC 3.06 M/mm3 (4.00-5.60); WHITE BLOOD COUNT 3.8 K/mm3 (4.0-10.0)
[2018-05-03] MEDS: METOPROLOL TARTRATE 50 MG TABLET (FP) PO SCH ×2 (10:31→22:00)
[2018-05-03] MEDS: ALLOPURINOL 100 MG TABLET (FP) PO SCH (10:32)
[2018-05-03] MEDS: DOCUSATE SODIUM 100 MG CAPSULE (FP) PO SCH ×2 (10:32→22:01)
[2018-05-03] MEDS: EZETIMIBE 10 MG TABLET (FP) PO SCH (10:32)
[2018-05-03] MEDS: NIFEdipine E.R 60 MG TABLET (UD) PO SCH (10:32)
[2018-05-03] MEDS: LOSARTAN POTASSIUM 25 MG TABLET PO SCH (10:32)
[2018-05-03] MEDS: MEGESTROL ACETATE 400 MG/10 ML UNIT DOSE CUP PO SCH (10:33)
[2018-05-03] MEDS: EMTRICITABINE/TENOFOV ALAFENAM (DESCOVY) TABLET PO SCH (10:35)
[2018-05-03] MEDS: MYCOPHENOLATE MOFETIL 500 MG TABLET PO SCH ×2 (10:35→22:02)
[2018-05-03] MEDS: RALTEGRAVIR POTASSIUM 400 MG TAB PO SCH ×2 (10:36→22:02)
[2018-05-03] MEDS: PARICALCITOL 1 MCG CAP PO SCH (10:37)
[2018-05-03] MEDS: CINACALCET HCL 30 MG TAB (FP) PO SCH (10:37)
--- NOTE | 2018-05-03 10:50 | PN ---
Progress Note, Physician History of Present Illness: Pt seen and examined at bedside. He is awake and alert. He denies shortness of breath. - Current Medication List Current Medications: Active Medications Acetaminophen (Tylenol -) 650 mg PO Q6H PRN PRN Reason: PAIN 4-6 Last Admin: 05/03/18 06:43 Dose: 650 mg Allopurinol (Zyloprim -) 100 mg PO DAILY [facility] Last Admin: 05/03/18 10:32 Dose: 100 mg Atorvastatin Calcium (Lipitor -) 80 mg PO HS [facility] Last Admin: 05/02/18 22:21 Dose: 80 mg Brimonidine Tartrate (Alphagan 0.2% -) 1 drop OD BID [facility] Last Admin: 05/02/18 22:28 Dose: Not Given Cinacalcet (Sensipar -) 60 mg PO DAILY [facility] Last Admin: 05/03/18 10:37 Dose: 60 mg Docusate Sodium (Colace -) 100 mg PO BID [facility] Last Admin: 05/03/18 10:32 Dose: Not Given Ezetimibe (Zetia -) 10 mg PO DAILY [facility] Last Admin: 05/03/18 10:32 Dose: 10 mg Lactated Ringer's (Lactated Ringers Solution) 1,000 mls @ 75 mls/hr IV ASDIR [facility] Last Admin: 05/03/18 02:40 Dose: 75 mls/hr Piperacillin Sod/Tazobactam (Sod 4.5 gm/ Dextrose) 100 mls @ 200 mls/hr IVPB Q8H-IV [facility]; Protocol Piperacillin Sod/Tazobactam (Sod 4.5 gm/ Dextrose) 100 mls @ 200 mls/hr IVPB Q8H-IV [facility]; Protocol Stop: 05/03/18 17:59 Last Admin: 05/03/18 10:38 Dose: Not Given Latanoprost (Xalatan 0.005% Eye Drops -) 1 drop OD HS [facility] Last Admin: 05/02/18 22:28 Dose: 1 drop Losartan Potassium (Cozaar -) 25 mg PO DAILY [facility] Last Admin: 05/03/18 10:32 Dose: 25 mg Megestrol Acetate (Megace Oral Suspension -) 800 mg PO DAILY [facility] Last Admin: 05/03/18 10:33 Dose: 800 mg Metoprolol Tartrate (Lopressor -) 25 mg PO BID [facility] Last Admin: 05/03/18 10:31 Dose: 25 mg Mycophenolate Mofetil (Cellcept -) 1,000 mg PO BID [facility] Last Admin: 05/03/18 10:35 Dose: 1,000 mg Nifedipine (Procardia Xl -) 60 mg PO DAILY [facility] Last Admin: 05/03/18 10:32 Dose: 60 mg Ondansetron HCl (Zofran Injection) 4 mg IVPUSH Q6H PRN PRN Reason: NAUSEA AND/OR VOMITING Stop: 05/03/18 12:02 Paricalcitol (Zemplar -) 1 mcg PO DAILY [facility] Last Admin: 05/03/18 10:37 Dose: 1 mcg Raltegravir (Isentress -) 400 mg PO BID [facility] Last Admin: 05/03/18 10:36 Dose: 400 mg Tacrolimus (Prograf) 4 mg PO HS [facility] Last Admin: 05/02/18 22:23 Dose: 4 mg Tacrolimus (Prograf) 4 mg PO AM [facility] Last Admin: 05/03/18 06:42 Dose: 4 mg - Objective Vital Signs: Vital Signs Temperature 98.6 F 05/03/18 06:46 Pulse Rate 74 05/03/18 06:46 Respiratory Rate 20 05/03/18 06:46 Blood Pressure 155/80 05/03/18 06:46 O2 Sat by Pulse Oximetry (%) 97 05/02/18 21:00 Constitutional: Yes: Calm Eyes: Yes: Conjunctiva Clear HENT: Yes: Atraumatic Cardiovascular: Yes: S1, S2 Respiratory: Yes: CTA Bilaterally Gastrointestinal: Yes: Normal Bowel Sounds, Soft Genitourinary: Yes: WNL, Other (transplant non tender) Edema: No Wound/Incision: Yes: Dressing Dry and Intact Neurological: Yes: Oriented Psychiatric: Yes: Oriented Labs: CBC, BMP 05/03/18 06:30 05/02/18 06:10 INR, PTT INR 1.27 (0.83-1.09) H 05/02/18 07:40 Problem List - Problems (1) CKD (chronic kidney disease) Code(s): N18.9 - CHRONIC KIDNEY DISEASE, UNSPECIFIED Assessment/Plan Current Medications Generic Name Dose Route Start Last Admin Trade Name Freq PRN Reason Stop Dose Admin Acetaminophen 650 mg 05/02/18 15:39 05/03/18 06:43 Tylenol - PO 650 mg Q6H PRN Administration PAIN 4-6 Allopurinol 100 mg 05/03/18 10:00 05/03/18 10:32 Zyloprim - PO 100 mg DAILY [facility] Administration Atorvastatin Calcium 80 mg 05/02/18 22:00 05/02/18 22:21 Lipitor - PO 80 mg HS [facility] Administration Brimonidine Tartrate 1 drop 05/02/18 22:00 05/02/18 22:28 Alphagan 0.2% - OD Not Given BID [facility] Cinacalcet 60 mg 05/03/18 10:00 05/03/18 10:37 Sensipar - PO 60 mg DAILY [facility] Administration Docusate Sodium 100 mg 05/02/18 22:00 05/03/18 10:32 Colace - PO Not Given BID [facility] Ezetimibe 10 mg 05/03/18 10:00 05/03/18 10:32 Zetia - PO 10 mg DAILY [facility] Administration Lactated Ringer's 1,000 mls @ 75 mls/hr 05/02/18 15:39 05/03/18 02:40 Lactated Ringers Solution IV 75 mls/hr ASDIR [facility] Administration Piperacillin Sod/Tazobactam 100 mls @ 200 mls/hr 05/02/18 18:00 Sod 4.5 gm/ Dextrose IVPB Q8H-IV [facility] Protocol Piperacillin Sod/Tazobactam 100 mls @ 200 mls/hr 05/02/18 18:00 05/03/18 10: 38 Sod 4.5 gm/ Dextrose IVPB 05/03/18 17:59 Not Given Q8H-IV [facility] Protocol Latanoprost 1 drop 05/02/18 22:00 05/02/18 22:28 Xalatan 0.005% Eye Drops - OD 1 drop HS [facility] Administration Losartan Potassium 25 mg 05/03/18 10:00 05/03/18 10:32 Cozaar - PO 25 mg DAILY [facility] Administration Megestrol Acetate 800 mg 05/03/18 10:00 05/03/18 10:33 Megace Oral Suspension - PO 800 mg DAILY [facility] Administration Metoprolol Tartrate 25 mg 05/02/18 22:00 05/03/18 10:31 Lopressor - PO 25 mg BID [facility] Administration Mycophenolate Mofetil 1,000 mg 05/02/18 22:00 05/03/18 10:35 Cellcept - PO 1,000 mg BID [facility] Administration Nifedipine 60 mg 05/03/18 10:00 05/03/18 10:32 Procardia Xl - PO 60 mg DAILY [facility] Administration Ondansetron HCl 4 mg 05/02/18 15:39 Zofran Injection IVPUSH 05/03/18 12:02 Q6H PRN NAUSEA AND/OR VOMITING Paricalcitol 1 mcg 05/03/18 10:00 05/03/18 10:37 Zemplar - PO 1 mcg DAILY [facility] Administration Raltegravir 400 mg 05/02/18 22:00 05/03/18 10:36 Isentress - PO 400 mg BID [facility] Administration Tacrolimus 4 mg 05/02/18 22:00 05/02/18 22:23 Prograf PO 4 mg HS [facility] Administration Tacrolimus 4 mg 05/03/18 07:00 05/03/18 06:42 Prograf PO 4 mg AM [facility] Administration Impression 1. CKD 2. kidney tranplant 3. HIV 4. HTN 5. DM 6. cad 7. HLD 8. small hypodense mass in kidney Plan - follow prograf level - d/c fluids - check bmp - cont to monitor renal function - put out another call to Dr Zamarripa in [facility] - urology eval for mass in kidney - abx per ID
[2018-05-03] MEDS: BRIMONIDINE TARTRATE 0.2% OPHTHALMIC 5 ML BOTTLE OD SCH ×2 (10:52→22:10)
[2018-05-03 11:05] LABS: ANISOCYTOSIS 0; HELMET CELLS 0; HOWELL-JOLLY BODIES 0; MACROCYTOSIS 0; OVALOCYTE 0; PLATELET ESTIMATE NORMAL; ROULEAU 0; SICKELED CELLS 0; TARGET CELLS 0; TEAR DROP CELLS 0; TOXIC GRANULATION 0
--- NOTE | 2018-05-03 12:08 | PN ---
Progress Note, Physician History of Present Illness: doing well no new issues post op - Current Medication List Current Medications: Active Medications Acetaminophen (Tylenol -) 650 mg PO Q6H PRN PRN Reason: PAIN 4-6 Last Admin: 05/03/18 06:43 Dose: 650 mg Allopurinol (Zyloprim -) 100 mg PO DAILY [facility] Last Admin: 05/03/18 10:32 Dose: 100 mg Atorvastatin Calcium (Lipitor -) 80 mg PO HS [facility] Last Admin: 05/02/18 22:21 Dose: 80 mg Brimonidine Tartrate (Alphagan 0.2% -) 1 drop OD BID [facility] Last Admin: 05/03/18 10:52 Dose: 1 drop Cinacalcet (Sensipar -) 60 mg PO DAILY [facility] Last Admin: 05/03/18 10:37 Dose: 60 mg Docusate Sodium (Colace -) 100 mg PO BID [facility] Last Admin: 05/03/18 10:32 Dose: Not Given Ezetimibe (Zetia -) 10 mg PO DAILY [facility] Last Admin: 05/03/18 10:32 Dose: 10 mg Piperacillin Sod/Tazobactam (Sod 4.5 gm/ Dextrose) 100 mls @ 200 mls/hr IVPB Q8H-IV [facility]; Protocol Piperacillin Sod/Tazobactam (Sod 4.5 gm/ Dextrose) 100 mls @ 200 mls/hr IVPB Q8H-IV [facility]; Protocol Stop: 05/03/18 17:59 Last Admin: 05/03/18 10:38 Dose: Not Given Latanoprost (Xalatan 0.005% Eye Drops -) 1 drop OD [facility] Last Admin: 05/02/18 22:28 Dose: 1 drop Losartan Potassium (Cozaar -) 25 mg PO DAILY [facility] Last Admin: 05/03/18 10:32 Dose: 25 mg Megestrol Acetate (Megace Oral Suspension -) 800 mg PO DAILY [facility] Last Admin: 05/03/18 10:33 Dose: 800 mg Metoprolol Tartrate (Lopressor -) 25 mg PO BID [facility] Last Admin: 05/03/18 10:31 Dose: 25 mg Mycophenolate Mofetil (Cellcept -) 1,000 mg PO BID [facility] Last Admin: 05/03/18 10:35 Dose: 1,000 mg Nifedipine (Procardia Xl -) 60 mg PO DAILY [facility] Last Admin: 05/03/18 10:32 Dose: 60 mg Paricalcitol (Zemplar -) 1 mcg PO DAILY [facility] Last Admin: 05/03/18 10:37 Dose: 1 mcg Raltegravir (Isentress -) 400 mg PO BID [facility] Last Admin: 05/03/18 10:36 Dose: 400 mg Tacrolimus (Prograf) 4 mg PO HS [facility] Last Admin: 05/02/18 22:23 Dose: 4 mg Tacrolimus (Prograf) 4 mg PO AM [facility] Last Admin: 05/03/18 06:42 Dose: 4 mg - Objective Vital Signs: Vital Signs Temperature 98.8 F 05/03/18 10:00 Pulse Rate 78 05/03/18 10:00 Respiratory Rate 20 05/03/18 10:00 Blood Pressure 148/78 05/03/18 10:00 O2 Sat by Pulse Oximetry (%) 97 05/02/18 21:00 Constitutional: Yes: No Distress, Calm Cardiovascular: Yes: Regular Rate and Rhythm Respiratory: Yes: Regular, CTA Bilaterally Musculoskeletal: Yes: WNL Extremities: Yes: Other Wound/Incision: Yes: Dressing Dry and Intact Neurological: Yes: Alert, Oriented Psychiatric: Yes: Alert, Oriented Labs: CBC, BMP 05/03/18 06:30 05/02/18 06:10 INR, PTT INR 1.27 (0.83-1.09) H 05/02/18 07:40 Assessment/Plan CKD kidney tranplant HIV HTN . DM cad HLD wound infection vre patient with vre wound infection and other organisms plan await for final biopsy report continue wound care rest as per the team
[2018-05-03 13:27] LABS: ANION GAP 6 MMOL/L (8-16); BLOOD UREA NITROGEN 17 mg/dL (7-18); CALCIUM 8.6 mg/dL (8.5-10.1); CHLORIDE 113 mmol/L (98-107); CO2 22 mmol/L (21-32); CREATININE 1.3 mg/dL (0.55-1.3); GLUCOSE,RANDOM 100 mg/dL (74-106); POTASSIUM 3.9 mmol/L (3.5-5.1); SODIUM 141 mmol/L (136-145)
--- NOTE | 2018-05-03 13:43 | OP ---
DATE OF OPERATION: 05/02/2018 PREOPERATIVE DIAGNOSIS: Gangarene. Grade 4 ulceration to distal phalanx of right hallux with OM. POSTOPERATIVE DIAGNOSIS: Grade 4 ulceration to distal phalanx of right hallux with OM. SURGEON: Didier Mooney DPM [employer] TRUCK DRIVER: Marjorie Hernandez. ANESTHESIA: MAC, local. OPERATION: Right hallux amputation. PATHOLOGY: Bone and soft tissue. ESTIMATED BLOOD LOSS: Approximately 30 mL. HEMOSTASIS: Cautery MATERIALS: 0.25-inch iodoform packing and 3-0 nylon. INJECTION: 10 mL of 0.5% Marcaine preoperatively, 10 mL of 0.5% Marcaine intraoperatively. DESCRIPTION OF PROCEDURE: The patient was both verbally and visually identified in the preoperative holding area. Informed consent was obtained and placed in the chart. All risks, benefits, and complications were explained to the patient to their satisfaction. The patient was transported to the operating room by a member of Anesthesia and Surgical team. The patient was placed on the operating room table in the supine position. The patient received no antibiotic. Currently is taking antibiotic on the floor. After sedation, a well-padded right ankle tourniquet was placed but was not used during this procedure. The patient's surgical site was then prepped and draped in the usual aseptic manner. Attention was then directed to the right foot at the distal medial aspect of the foot where the incision was drawn for a fish mouth incision. It was noted also at the distal tip of the phalanx to be necrotic with the presence of exposed bone and slight purulent drainage to the area. The wound had necrotic tissue and probing to bone. The decision was then made and deemed necessary for amputation of the hallux at the MPJ. A fish mouth incision was then placed circumferentially at the base of the right hallux at the approximate level of the MPJ, which was then deepened to bone using sharp and blunt dissection. All of the soft tissue was free from the proximal phalanx. Using a bone cutter, the proximal phalanx was then cut through the bone, and the distal part of the hallux was then removed from the operative site and sent to Pathology. A bone culture was done of the proximal portion remaining. Next, the proximal portion of the base of the proximal phalanx was freed from the soft tissue and disarticulated at the MPJ. The remaining bone was also sent for Pathology. The wound was then explored all the necrotic and exposed tendon was dissected and resected from the amputation site. The area was then flushed with a copious amount of normal saline with bacitracin. Hemostasis was obtained using cautery. It was noted to the surgical site that no further necrotic tissue and only clean healthy tissue was noted at the wound site. Then using a 3-0 nylon, the skin was closed using retention suture in a simple interrupted suture fashion. Using a 0.25-inch iodoform packing, it was inserted into the amputation site underneath the soft tissue. Upon completion of the procedure, the incision was dressed with Xeroform and covered with sterile compressive dressing such as 4 x 4's, abdominal pad, Get, and Eddy bandage. The patient tolerated the procedure well and was transferred to the recovery room with all vital signs stable and vascular status intact to the right foot. Marjorie Hernandez dictating for MOY Alves DPM [id number] LENNY
[2018-05-03] MEDS ORDERED: PT OWN MED DRAWER 7, Y5N ONE (19:00)
--- NOTE | 2018-05-03 21:31 | PN ---
Progress Note, Physician Chief Complaint: Pt A&Ox3; lying in bed; mild pain at site of toe amputation. History of Present Illness: 72 y/o black male presenting to [facility] ER on referral from Dr. Mooney with concern for gangrenous infection to first toe of right foot. Written orders requesting admission to Dr. Wilson service with consultation to Drs. Loyola and Lily. Pt endorses pain to the area made worse with movement of the toe. States symptoms started approx. 1 month ago and has progressively worsened. H/o of gout in the toe. Denies fevers or chills. Was evaluated at [facility] for right ankle swelling and pain to right first toe. Found to be febrile and tachycardic. Received IV antibiotics. Unknown hospital course. Pt currently a resident at [facility] PCP: Dr. [facility] Hx: - CKD s/p renal transplant, on Tacrolimus - A-fib, on ASA, Plavix, and Coumadin. Coumadin held this morning and pt received PO Vit. K - HIV, last viral load zero. Unknown CD4 count. - Gout on Allopurinol - DM - HIV - Carotid plaque - PAD s/p stenting, location unknown --Pt says he had a recent stress MIBI (late 2017): ?results. - Current Medication List Current Medications: Active Medications Acetaminophen (Tylenol -) 650 mg PO Q6H PRN PRN Reason: PAIN 4-6 Last Admin: 05/03/18 20:35 Dose: 650 mg Allopurinol (Zyloprim -) 100 mg PO DAILY [facility] Last Admin: 05/03/18 10:32 Dose: 100 mg Atorvastatin Calcium (Lipitor -) 80 mg PO HS [facility] Last Admin: 05/02/18 22:21 Dose: 80 mg Brimonidine Tartrate (Alphagan 0.2% -) 1 drop OD BID [facility] Last Admin: 05/03/18 10:52 Dose: 1 drop Cinacalcet (Sensipar -) 60 mg PO DAILY [facility] Last Admin: 05/03/18 10:37 Dose: 60 mg Docusate Sodium (Colace -) 100 mg PO BID [facility] Last Admin: 05/03/18 10:32 Dose: Not Given Ezetimibe (Zetia -) 10 mg PO DAILY [facility] Last Admin: 05/03/18 10:32 Dose: 10 mg Piperacillin Sod/Tazobactam (Sod 4.5 gm/ Dextrose) 100 mls @ 200 mls/hr IVPB Q8H-IV [facility]; Protocol Latanoprost (Xalatan 0.005% Eye Drops -) 1 drop OD HS [facility] Last Admin: 05/02/18 22:28 Dose: 1 drop Losartan Potassium (Cozaar -) 25 mg PO DAILY [facility] Last Admin: 05/03/18 10:32 Dose: 25 mg Megestrol Acetate (Megace Oral Suspension -) 800 mg PO DAILY [facility] Last Admin: 05/03/18 10:33 Dose: 800 mg Metoprolol Tartrate (Lopressor -) 25 mg PO BID [facility] Last Admin: 05/03/18 10:31 Dose: 25 mg Mycophenolate Mofetil (Cellcept -) 1,000 mg PO BID [facility] Last Admin: 05/03/18 10:35 Dose: 1,000 mg Nifedipine (Procardia Xl -) 60 mg PO DAILY [facility] Last Admin: 05/03/18 10:32 Dose: 60 mg Paricalcitol (Zemplar -) 1 mcg PO DAILY [facility] Last Admin: 05/03/18 10:37 Dose: 1 mcg Raltegravir (Isentress -) 400 mg PO BID [facility] Last Admin: 05/03/18 10:36 Dose: 400 mg Tacrolimus (Prograf) 4 mg PO HS [facility] Last Admin: 05/02/18 22:23 Dose: 4 mg Tacrolimus (Prograf) 4 mg PO AM [facility] Last Admin: 05/03/18 06:42 Dose: 4 mg - Objective Vital Signs: Vital Signs Temperature 100.2 F H 05/03/18 20:40 Pulse Rate 78 05/03/18 20:40 Respiratory Rate 20 05/03/18 17:28 Blood Pressure 124/69 05/03/18 20:40 O2 Sat by Pulse Oximetry (%) 97 05/03/18 09:00 Constitutional: Yes: Calm Eyes: Yes: WNL HENT: Yes: WNL Neck: Yes: WNL Cardiovascular: Yes: Regular Rate and Rhythm Respiratory: Yes: WNL Gastrointestinal: Yes: Soft ...Rectal Exam: Yes: Deferred Genitourinary: No: Anuria Breast(s): Yes: WNL Musculoskeletal: Yes: Muscle Weakness Extremities: Yes: Cool Edema: No Peripheral Pulses WNL: No Peripheral Pulses: Left Doralis Pedis: 1+, Right Dorsalis Pedis: 1+ Integumentary: Yes: Other Wound/Incision: Yes: Dressing Dry and Intact Neurological: Yes: Alert, Oriented, Weakness Psychiatric: Yes: WNL Labs: CBC, BMP 05/03/18 06:30 05/03/18 12:35 INR, PTT INR 1.27 (0.83-1.09) H 05/02/18 07:40 Current Medications Acetaminophen (Tylenol -) 650 mg PO Q6H PRN PRN Reason: PAIN 4-6 Last Admin: 05/03/18 20:35 Dose: 650 mg Allopurinol (Zyloprim -) 100 mg PO DAILY [facility] Last Admin: 05/03/18 10:32 Dose: 100 mg Atorvastatin Calcium (Lipitor -) 80 mg PO HS [facility] Last Admin: 05/02/18 22:21 Dose: 80 mg Brimonidine Tartrate (Alphagan 0.2% -) 1 drop OD BID [facility] Last Admin: 05/03/18 10:52 Dose: 1 drop Cinacalcet (Sensipar -) 60 mg PO DAILY [facility] Last Admin: 05/03/18 10:37 Dose: 60 mg Docusate Sodium (Colace -) 100 mg PO BID [facility] Last Admin: 05/03/18 10:32 Dose: Not Given Ezetimibe (Zetia -) 10 mg PO DAILY [facility] Last Admin: 05/03/18 10:32 Dose: 10 mg Piperacillin Sod/Tazobactam (Sod 4.5 gm/ Dextrose) 100 mls @ 200 mls/hr IVPB Q8H-IV [facility]; Protocol Latanoprost (Xalatan 0.005% Eye Drops -) 1 drop OD [facility] Last Admin: 05/02/18 22:28 Dose: 1 drop Losartan Potassium (Cozaar -) 25 mg PO DAILY [facility] Last Admin: 05/03/18 10:32 Dose: 25 mg Megestrol Acetate (Megace Oral Suspension -) 800 mg PO DAILY [facility] Last Admin: 05/03/18 10:33 Dose: 800 mg Metoprolol Tartrate (Lopressor -) 25 mg PO BID [facility] Last Admin: 05/03/18 10:31 Dose: 25 mg Mycophenolate Mofetil (Cellcept -) 1,000 mg PO BID [facility] Last Admin: 05/03/18 10:35 Dose: 1,000 mg Nifedipine (Procardia Xl -) 60 mg PO DAILY [facility] Last Admin: 05/03/18 10:32 Dose: 60 mg Paricalcitol (Zemplar -) 1 mcg PO DAILY [facility] Last Admin: 05/03/18 10:37 Dose: 1 mcg Raltegravir (Isentress -) 400 mg PO BID [facility] Last Admin: 05/03/18 10:36 Dose: 400 mg Tacrolimus (Prograf) 4 mg PO HS [facility] Last Admin: 05/02/18 22:23 Dose: 4 mg Tacrolimus (Prograf) 4 mg PO AM [facility] Last Admin: 05/03/18 06:42 Dose: 4 mg Abnormal Lab Results 05/03/18 05/03/18 06:30 12:35 WBC 3.8 L RBC 3.06 L Hgb 8.3 L Hct 26.6 L MCHC 31.1 L RDW 18.0 H Neutrophils % 42.5 L Monocytes % 31.7 H Monocytes % (Manual) 26 H Chloride 113 H Anion Gap 6 L Problem List - Problems (1) PAD (peripheral artery disease) Assessment/Plan: s/p amputation of right big toe Pain management; physical therapy. F/u with surgeon. Code(s): I73.9 - PERIPHERAL VASCULAR DISEASE, UNSPECIFIED (2) Diabetes Code(s): E11.9 - TYPE 2 DIABETES MELLITUS WITHOUT COMPLICATIONS (3) Diabetic foot ulcer Assessment/Plan: Stress PET/MIBI report from 01/2018: no ischemia. From cardiac perspective, there are no absolute contraindications for Mr. Coley to undergo gangrenous toe amputation. Code(s): E11.621 - TYPE 2 DIABETES MELLITUS WITH FOOT ULCER; L97.509 - NON- PRESSURE CHRONIC ULCER OTH PRT UNSP FOOT W UNSP SEVERITY (4) HIV (human immunodeficiency virus infection) Code(s): B20 - HUMAN IMMUNODEFICIENCY VIRUS [HIV] DISEASE (5) HTN (hypertension) Assessment/Plan: On losartan, nifedipine, metoprolol. ECHO: normal LVEF; mild LVH; moderate TR; mild MR. Code(s): I10 - ESSENTIAL (PRIMARY) HYPERTENSION (6) Renal transplant recipient Code(s): Z94.0 - KIDNEY TRANSPLANT STATUS (7) Type 2 diabetes mellitus with diabetic peripheral angiopathy with gangrene Assessment/Plan: s/p right big toe amputation. 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 Total cholesterol 78 mg/dL. Code(s): E78.5 - HYPERLIPIDEMIA, UNSPECIFIED
[2018-05-03] MEDS: ATORVASTATIN CA 80 MG TABLET (FP) PO SCH (22:01)
[2018-05-03] MEDS: LATANOPROST 0.005% OPHTH SOLN 2.5ML BOTTLE OD SCH (22:10)
--- NOTE | 2018-05-03 22:24 | PN ---
Progress Note, Physician History of Present Illness: Pt has been refusing antibxs - Current Medication List Current Medications: Active Medications Acetaminophen (Tylenol -) 650 mg PO Q6H PRN PRN Reason: PAIN 4-6 Last Admin: 05/03/18 20:35 Dose: 650 mg Allopurinol (Zyloprim -) 100 mg PO DAILY [facility] Last Admin: 05/03/18 10:32 Dose: 100 mg Atorvastatin Calcium (Lipitor -) 80 mg PO HS [facility] Last Admin: 05/03/18 22:01 Dose: 80 mg Brimonidine Tartrate (Alphagan 0.2% -) 1 drop OD BID [facility] Last Admin: 05/03/18 22:10 Dose: 1 drop Cinacalcet (Sensipar -) 60 mg PO DAILY [facility] Last Admin: 05/03/18 10:37 Dose: 60 mg Docusate Sodium (Colace -) 100 mg PO BID [facility] Last Admin: 05/03/18 22:01 Dose: 100 mg Ezetimibe (Zetia -) 10 mg PO DAILY [facility] Last Admin: 05/03/18 10:32 Dose: 10 mg Piperacillin Sod/Tazobactam (Sod 4.5 gm/ Dextrose) 100 mls @ 200 mls/hr IVPB Q8H-IV [facility]; Protocol Latanoprost (Xalatan 0.005% Eye Drops -) [address] drop [address] [facility] Last Admin: 05/03/18 22:10 Dose: 1 drop Losartan Potassium (Cozaar -) 25 mg PO DAILY [facility] Last Admin: 05/03/18 10:32 Dose: 25 mg Megestrol Acetate (Megace Oral Suspension -) 800 mg PO DAILY [facility] Last Admin: 05/03/18 10:33 Dose: 800 mg Metoprolol Tartrate (Lopressor -) 25 mg PO BID [facility] Last Admin: 05/03/18 22:00 Dose: 25 mg Mycophenolate Mofetil (Cellcept -) 1,000 mg PO BID [facility] Last Admin: 05/03/18 22:02 Dose: 1,000 mg Nifedipine (Procardia Xl -) 60 mg PO DAILY [facility] Last Admin: 05/03/18 10:32 Dose: 60 mg Paricalcitol (Zemplar -) 1 mcg PO DAILY [facility] Last Admin: 05/03/18 10:37 Dose: 1 mcg Raltegravir (Isentress -) 400 mg PO BID [facility] Last Admin: 05/03/18 22:02 Dose: 400 mg Tacrolimus (Prograf) 4 mg PO HS [facility] Last Admin: 05/03/18 22:01 Dose: 4 mg Tacrolimus (Prograf) 4 mg PO AM [facility] Last Admin: 05/03/18 06:42 Dose: 4 mg - Objective Vital Signs: Vital Signs Temperature 99.1 F 05/03/18 22:00 Pulse Rate 78 05/03/18 20:40 Respiratory Rate 20 05/03/18 17:28 Blood Pressure 124/69 05/03/18 20:40 O2 Sat by Pulse Oximetry (%) 97 05/03/18 09:00 Neck: Yes: WNL, Supple Cardiovascular: Yes: WNL, Regular Rate and Rhythm Respiratory: Yes: WNL, Regular, CTA Bilaterally Gastrointestinal: Yes: WNL, Normal Bowel Sounds, Soft Extremities: Yes: Other (Rt foot w/ dressing) Labs: CBC, BMP 05/03/18 06:30 05/03/18 12:35 INR, PTT INR 1.27 (0.83-1.09) H 05/02/18 07:40 Problem List - Problems (1) Diabetic foot ulcer Assessment/Plan: S/P amputation Rt big toe Cont IV antibxs Wound culture (+) for staph aureus/Vr Ec faecalis Code(s): E11.621 - TYPE 2 DIABETES MELLITUS WITH FOOT ULCER; L97.509 - NON- PRESSURE CHRONIC ULCER OTH PRT UNSP FOOT W UNSP SEVERITY (2) Diabetes Code(s): E11.9 - TYPE 2 DIABETES MELLITUS WITHOUT COMPLICATIONS (3) CKD (chronic kidney disease) Code(s): N18.9 - CHRONIC KIDNEY DISEASE, UNSPECIFIED (4) HIV (human immunodeficiency virus infection) Assessment/Plan: Cont antivirals Code(s): B20 - HUMAN IMMUNODEFICIENCY VIRUS [HIV] DISEASE (5) HTN (hypertension) Assessment/Plan: BP stable Cont losartan/metoprolol/nifedipine/ Code(s): I10 - ESSENTIAL (PRIMARY) HYPERTENSION (6) Renal transplant recipient Assessment/Plan: Cont prograf/sensipar/cellcept Code(s): Z94.0 - KIDNEY TRANSPLANT STATUS (7) HLD (hyperlipidemia) Assessment/Plan: Cont lipitor/zetia Code(s): E78.5 - HYPERLIPIDEMIA, UNSPECIFIED
--- NOTE | 2018-05-03 22:24 | PN ---
Progress Note (short form) - Note Progress Note: Anesthesia postop note 72y/o man s/p MAC for toe amputation POD#1, vss, aaox3, no complaints. No anesthesia complications.
[2018-05-04] MEDS: PIPERACILLIN/TAZOB 3.375 GM 3.375 GM in DEXTROSE 5%-WATER - 50 ML IVPB SCH ×2 (02:03→10:00)
[2018-05-04] MEDS: TACROLIMUS ANHYDROUS 1 MG CAPSULE PO SCH ×2 (06:09→21:39)
[2018-05-04] MEDS ORDERED: PT OWN MED DRAWER 7, Y5N ONE ×2 (09:48→12:38)
[2018-05-04] MEDS: EZETIMIBE 10 MG TABLET (FP) PO SCH (09:53)
[2018-05-04] MEDS: NIFEdipine E.R 60 MG TABLET (UD) PO SCH (09:54)
[2018-05-04] MEDS: ALLOPURINOL 100 MG TABLET (FP) PO SCH (09:54)
[2018-05-04] MEDS: METOPROLOL TARTRATE 50 MG TABLET (FP) PO SCH ×2 (09:54→21:42)
[2018-05-04] MEDS: LOSARTAN POTASSIUM 25 MG TABLET PO SCH (09:55)
[2018-05-04] MEDS: MEGESTROL ACETATE 400 MG/10 ML UNIT DOSE CUP PO SCH (09:56)
[2018-05-04] MEDS: MYCOPHENOLATE MOFETIL 500 MG TABLET PO SCH ×2 (09:58→21:43)
[2018-05-04] MEDS: PARICALCITOL 1 MCG CAP PO SCH (09:58)
[2018-05-04] MEDS: DOCUSATE SODIUM 100 MG CAPSULE (FP) PO SCH ×2 (09:58→21:43)
[2018-05-04] MEDS: RALTEGRAVIR POTASSIUM 400 MG TAB PO SCH ×2 (09:59→21:43)
[2018-05-04] MEDS: CINACALCET HCL 30 MG TAB (FP) PO SCH (09:59)
[2018-05-04] MEDS: ACETAMINOPHEN 325 MG TABLET (FP) PO PRN ×2 (10:00→21:40)
[2018-05-04] MEDS: EMTRICITABINE/TENOFOV ALAFENAM (DESCOVY) TABLET PO SCH (10:00)
[2018-05-04] MEDS: BRIMONIDINE TARTRATE 0.2% OPHTHALMIC 5 ML BOTTLE OD SCH ×2 (10:01→21:43)
--- NOTE | 2018-05-04 11:02 | CON.GU ---
Consult Consult Specialty:: Referred by:: Tawnya Reason for Consultation:: renal mass - History of Present Illness Chief Complaint: renal mass History of Present Illness: 72 year old male with a renal transplant admitted with some renal insufficiency. He has an incidentally found 1.8cm lesion on US not entirely consistent with a cyst. He is unaware of this. He follows with the renal transplant team at [facility] [facility]. His creatinine this morning is at 1.3, down from previous but above his baseline. - History Source History Provided By: Patient, Medical Record - Past Medical History Cardio/Vascular: Yes: HTN, Hyperlipdemia Renal/: Yes: Renal Inusuff, Other (kidney transplant) Infectious Disease: Yes: HIV - Past Surgical History Past Surgical History: Yes: AV Fistula/Graft, Kidney Transplant - Alcohol/Substance Use Hx Alcohol Use: No - Smoking History Smoking history: Former smoker Have you smoked in the past 12 months: No Home Medications - Allergies Allergies/Adverse Reactions: Allergies Allergy/AdvReac Type Severity Reaction Status Date / Time shellfish derived Allergy Verified 04/28/18 04:57 - Home Medications Home Medications: Ambulatory Orders Allopurinol [Zyloprim -] 100 mg PO DAILY 04/27/18 Aspirin [ASA -] 81 mg PO DAILY 04/27/18 Atorvastatin Ca [Lipitor] 80 mg PO HS 04/27/18 Brimonidine Tartrate [Alphagan 0.2% -] 1 drop BID 04/27/18 Cinacalcet HCl [Sensipar] 60 mg PO DAILY 04/27/18 Clopidogrel Bisulfate [Plavix] 75 mg PO DAILY 04/27/18 Docusate Sodium [Colace] 100 mg PO BID 04/27/18 Emtricitabine/Tenofov Alafenam [Descovy 200-25 mg Tablet (Nf)] 1 each PO DAILY 04/27/18 Ezetimibe 10 mg PO DAILY 04/27/18 Latanoprost 0.005% Eye Drops [Xalatan 0.005% Eye Drops -] 1 drop HS 04/27/18 Losartan Potassium 25 mg PO DAILY 04/27/18 Megestrol Acetate 20 ml PO DAILY 04/27/18 Metoprolol Tartrate [Lopressor] 25 mg PO BID 04/27/18 Mycophenolate Mofetil 1,000 mg PO BID 04/27/18 Nifedipine ER [Procardia Xl -] 60 mg PO DAILY 04/27/18 Paricalcitol 1 mcg PO DAILY 04/27/18 Raltegravir [Isentress -] 400 mg PO BID 04/27/18 Tacrolimus [Prograf] 4 mg PO DAILY 04/28/18 Tacrolimus [Prograf] 5 mg PO DAILY 04/28/18 Review of Systems - Review of Systems Genitourinary: reports: Menses, Vaginal Bleeding. denies: No Symptoms, Burning , Discharge, Dysuria, Flank Pain, Frequency, Hematuria, Incontinence, Lesions, Pain, Testicular Mass, Testicular Pain, Testicular Swelling, Urgency, Other Physical Exam- Vital Signs: Vital Signs Temperature 98.6 F 05/04/18 10:20 Pulse Rate 88 05/04/18 10:20 Respiratory Rate 18 05/04/18 10:20 Blood Pressure 160/78 05/04/18 10:20 O2 Sat by Pulse Oximetry (%) 97 05/03/18 21:00 Kidneys: No: Flank Pain Left, FLank Pain Right Pelvis: No: Bladder Distended Labs: CBC, BMP 05/03/18 06:30 05/03/18 12:35 Imaging - Results Ultrasound: Report Reviewed Problem List - Problems (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 He is not able to receive contrast presently. The mass is small and has a very low malignant potential. Recommend follow up imaging in three months. US if unable to have contrast, or a CT is he can. thank you for the referral Code(s): N28.1 - CYST OF KIDNEY, ACQUIRED
--- NOTE | 2018-05-04 11:21 | PN ---
Progress Note, Physician History of Present Illness: patient doing well says he had dirrhoea will not take abx d/w him - Current Medication List Current Medications: Active Medications Acetaminophen (Tylenol -) 650 mg PO Q6H PRN PRN Reason: PAIN 4-6 Last Admin: 05/04/18 10:00 Dose: 650 mg Allopurinol (Zyloprim -) 100 mg PO DAILY [facility] Last Admin: 05/04/18 09:54 Dose: 100 mg Atorvastatin Calcium (Lipitor -) 80 mg PO HS [facility] Last Admin: 05/03/18 22:01 Dose: 80 mg Brimonidine Tartrate (Alphagan 0.2% -) 1 drop OD BID [facility] Last Admin: 05/04/18 10:01 Dose: 1 drop Cinacalcet (Sensipar -) 60 mg PO DAILY [facility] Last Admin: 05/04/18 09:59 Dose: 60 mg Docusate Sodium (Colace -) 100 mg PO BID [facility] Last Admin: 05/04/18 09:58 Dose: Not Given Ezetimibe (Zetia -) 10 mg PO DAILY [facility] Last Admin: 05/04/18 09:53 Dose: 10 mg Latanoprost (Xalatan 0.005% Eye Drops -) 1 drop OD [facility] Last Admin: 05/03/18 22:10 Dose: 1 drop Losartan Potassium (Cozaar -) 25 mg PO DAILY [facility] Last Admin: 05/04/18 09:55 Dose: 25 mg Megestrol Acetate (Megace Oral Suspension -) 800 mg PO DAILY [facility] Last Admin: 05/04/18 09:56 Dose: 800 mg Metoprolol Tartrate (Lopressor -) 25 mg PO BID [facility] Last Admin: 05/04/18 09:54 Dose: 25 mg Mycophenolate Mofetil (Cellcept -) 1,000 mg PO BID [facility] Last Admin: 05/04/18 09:58 Dose: 1,000 mg Nifedipine (Procardia Xl -) 60 mg PO DAILY [facility] Last Admin: 05/04/18 09:54 Dose: 60 mg Paricalcitol (Zemplar -) 1 mcg PO DAILY [facility] Last Admin: 05/04/18 09:58 Dose: 1 mcg Raltegravir (Isentress -) 400 mg PO BID [facility] Last Admin: 05/04/18 09:59 Dose: 400 mg Tacrolimus (Prograf) 4 mg PO HS [facility] Last Admin: 05/03/18 22:01 Dose: 4 mg Tacrolimus (Prograf) 4 mg PO AM [facility] Last Admin: 05/04/18 06:09 Dose: 4 mg - Objective Vital Signs: Vital Signs Temperature 98.6 F 05/04/18 10:20 Pulse Rate 88 05/04/18 10:20 Respiratory Rate 18 05/04/18 10:20 Blood Pressure 160/78 05/04/18 10:20 O2 Sat by Pulse Oximetry (%) 97 05/03/18 21:00 Constitutional: Yes: No Distress, Calm Cardiovascular: Yes: Regular Rate and Rhythm Respiratory: Yes: Regular, CTA Bilaterally Gastrointestinal: Yes: Normal Bowel Sounds, Soft Musculoskeletal: Yes: WNL Extremities: Yes: Other Wound/Incision: Yes: Dressing Dry and Intact Neurological: Yes: Alert, Oriented Psychiatric: Yes: Alert, Oriented Labs: CBC, BMP 05/03/18 06:30 05/03/18 12:35 INR, PTT INR 1.27 (0.83-1.09) H 05/02/18 07:40 Assessment/Plan CKD kidney tranplant HIV HTN . DM cad HLD wound infection vre all reports noted sensitivities noted patient will need abx for 4--5 weeks will start on vanco as he says zosyn is giving him jostin spoke with the patient
--- NOTE | 2018-05-04 11:49 | PN ---
Progress Note, Physician History of Present Illness: Pt seen and examined at bedside. He is awake and alert. He denies shortness of breath. - Current Medication List Current Medications: Active Medications Acetaminophen (Tylenol -) 650 mg PO Q6H PRN PRN Reason: PAIN 4-6 Last Admin: 05/04/18 10:00 Dose: 650 mg Allopurinol (Zyloprim -) 100 mg PO DAILY [facility] Last Admin: 05/04/18 09:54 Dose: 100 mg Atorvastatin Calcium (Lipitor -) 80 mg PO HS [facility] Last Admin: 05/03/18 22:01 Dose: 80 mg Brimonidine Tartrate (Alphagan 0.2% -) 1 drop OD BID [facility] Last Admin: 05/04/18 10:01 Dose: 1 drop Cinacalcet (Sensipar -) 60 mg PO DAILY [facility] Last Admin: 05/04/18 09:59 Dose: 60 mg Docusate Sodium (Colace -) 100 mg PO BID [facility] Last Admin: 05/04/18 09:58 Dose: Not Given Ezetimibe (Zetia -) 10 mg PO DAILY [facility] Last Admin: 05/04/18 09:53 Dose: 10 mg Vancomycin HCl 1,250 mg/ (Dextrose) 250 mls @ 250 mls/2 hr IVPB DAILY@1200 [facility] ; Protocol Latanoprost (Xalatan 0.005% Eye Drops -) 1 drop OD [facility] Last Admin: 05/03/18 22:10 Dose: 1 drop Losartan Potassium (Cozaar -) 25 mg PO DAILY [facility] Last Admin: 05/04/18 09:55 Dose: 25 mg Megestrol Acetate (Megace Oral Suspension -) 800 mg PO DAILY [facility] Last Admin: 05/04/18 09:56 Dose: 800 mg Metoprolol Tartrate (Lopressor -) 25 mg PO BID [facility] Last Admin: 05/04/18 09:54 Dose: 25 mg Mycophenolate Mofetil (Cellcept -) 1,000 mg PO BID [facility] Last Admin: 05/04/18 09:58 Dose: 1,000 mg Nifedipine (Procardia Xl -) 60 mg PO DAILY [facility] Last Admin: 05/04/18 09:54 Dose: 60 mg Paricalcitol (Zemplar -) 1 mcg PO DAILY [facility] [place] Last Admin: 05/04/18 09:58 Dose: 1 mcg Raltegravir (Isentress -) 400 mg PO BID [facility] Last Admin: 05/04/18 09:59 Dose: 400 mg Tacrolimus (Prograf) 4 mg PO HS [facility] Last Admin: 05/03/18 22:01 Dose: 4 mg Tacrolimus (Prograf) 4 mg PO AM [facility] Last Admin: 05/04/18 06:09 Dose: 4 mg - Objective Vital Signs: Vital Signs Temperature 98.6 F 05/04/18 10:20 Pulse Rate 88 05/04/18 10:20 Respiratory Rate 18 05/04/18 10:20 Blood Pressure 160/78 05/04/18 10:20 O2 Sat by Pulse Oximetry (%) 97 05/03/18 21:00 Constitutional: Yes: Calm Eyes: Yes: Conjunctiva Clear HENT: Yes: Atraumatic Neck: Yes: Supple Cardiovascular: Yes: S1, S2 Respiratory: Yes: CTA Bilaterally Gastrointestinal: Yes: Soft Genitourinary: Yes: Other (transplant soft and non tender) Musculoskeletal: Yes: WNL Edema: No Wound/Incision: Yes: Dressing Dry and Intact Neurological: Yes: Oriented Psychiatric: Yes: Oriented Labs: CBC, BMP 05/03/18 06:30 05/03/18 12:35 INR, PTT INR 1.27 (0.83-1.09) H 05/02/18 07:40 Problem List - Problems (1) CKD (chronic kidney disease) Code(s): N18.9 - CHRONIC KIDNEY DISEASE, UNSPECIFIED Assessment/Plan Current Medications Generic Name Dose Route Start Last Admin Trade Name Freq PRN Reason Stop Dose Admin Acetaminophen 650 mg 05/02/18 15:39 05/04/18 10:00 Tylenol - PO 650 mg Q6H PRN Administration PAIN 4-6 Allopurinol 100 mg 05/03/18 10:00 05/04/18 09:54 Zyloprim - PO 100 mg DAILY [facility] Administration Atorvastatin Calcium 80 mg 05/02/18 22:00 05/03/18 22:01 Lipitor - PO 80 mg HS [facility] Administration Brimonidine Tartrate 1 drop 05/02/18 22:00 05/04/18 10:01 Alphagan 0.2% - OD 1 drop BID [facility] Administration Cinacalcet 60 mg 05/03/18 10:00 05/04/18 09:59 Sensipar - PO 60 mg DAILY [facility] Administration Docusate Sodium 100 mg 05/02/18 22:00 05/04/18 09:58 Colace - PO Not Given BID [facility] Ezetimibe 10 mg 05/03/18 10:00 05/04/18 09:53 Zetia - PO 10 mg DAILY [facility] Administration Vancomycin HCl 1,250 mg/ 250 mls @ 250 mls/2 hr 05/04/18 12:00 Dextrose IVPB DAILY@1200 [facility] Protocol Latanoprost 1 drop 05/02/18 22:00 05/03/18 22:10 Xalatan 0.005% Eye Drops - OD 1 drop HS [facility] Administration Losartan Potassium 25 mg 05/03/18 10:00 05/04/18 09:55 Cozaar - PO 25 mg DAILY [facility] Administration Megestrol Acetate 800 mg 05/03/18 10:00 05/04/18 09:56 Megace Oral Suspension - PO 800 mg DAILY [facility] Administration Metoprolol Tartrate 25 mg 05/02/18 22:00 05/04/18 09:54 Lopressor - PO 25 mg BID [facility] Administration Mycophenolate Mofetil 1,000 mg 05/02/18 22:00 05/04/18 09:58 Cellcept - PO 1,000 mg BID [facility] Administration Nifedipine 60 mg 05/03/18 10:00 05/04/18 09:54 Procardia Xl - PO 60 mg DAILY [facility] Administration Paricalcitol 1 mcg 05/03/18 10:00 05/04/18 09:58 Zemplar - PO 1 mcg DAILY [facility] Administration Raltegravir 400 mg 05/02/18 22:00 05/04/18 09:59 Isentress - PO 400 mg BID [facility] Administration Tacrolimus 4 mg 05/02/18 22:00 05/03/18 22:01 Prograf PO 4 mg HS [facility] Administration Tacrolimus 4 mg 05/03/18 07:00 05/04/18 06:09 Prograf PO 4 mg AM [facility] Administration Impression 1. CKD 2. kidney transplant 3. HIV 4. HTN 5. DM 6. cad 7. HLD 8. 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 I informed Dr Zamarripa of the renal mass. He will have pt evaluated in [place] by urology. The kidney was from a donor on his 50s and did not have a mass at the time of transplant. I also discussed the prograf level of 9.9 and he agrees with decreasing prograf to 4 mg bid, which pt is on now - cont tranplant meds - renal function stable - discussed with urology
[2018-05-04 12:42] VITALS: BMI 22.7
[2018-05-04] MEDS: VANCOMYCIN HCL 1,250 MG in DEXTROSE 5%-WATER - 250 ML IVPB SCH (12:50)
--- NOTE | 2018-05-04 14:31 | PN ---
Progress Note (short form) - Note Progress Note: POD#2. No pain. Patient seen at 8:30am vss, Tmax 98.6 +sutures intact, +packing intact, -drainage, -cellulitis, microbiology reviewed normal post op pvd Packing pulled. Betadine dressing change done. Post op shoe. Daily betadine dressing changes. Will follow. Anticipate DC if continues to progress w/o complications. IVABX as per ID.
[2018-05-04] MEDS: ATORVASTATIN CA 80 MG TABLET (FP) PO SCH (21:42)
[2018-05-04] MEDS: LATANOPROST 0.005% OPHTH SOLN 2.5ML BOTTLE OD SCH (21:43)
--- NOTE | 2018-05-05 00:23 | PN ---
Progress Note, Physician - Current Medication List Current Medications: Active Medications Acetaminophen (Tylenol -) 650 mg PO Q6H PRN PRN Reason: PAIN 4-6 Last Admin: 05/04/18 21:40 Dose: 650 mg Allopurinol (Zyloprim -) 100 mg PO DAILY [facility] Last Admin: 05/04/18 09:54 Dose: 100 mg Atorvastatin Calcium (Lipitor -) 80 mg PO HS [facility] Last Admin: 05/04/18 21:42 Dose: 80 mg Brimonidine Tartrate (Alphagan 0.2% -) 1 drop OD BID [facility] Last Admin: 05/04/18 21:43 Dose: 1 drop Cinacalcet (Sensipar -) 60 mg PO DAILY [facility] Last Admin: 05/04/18 09:59 Dose: 60 mg Docusate Sodium (Colace -) 100 mg PO BID [facility] Last Admin: 05/04/18 21:43 Dose: Not Given Ezetimibe (Zetia -) 10 mg PO DAILY [facility] Last Admin: 05/04/18 09:53 Dose: 10 mg Vancomycin HCl 1,250 mg/ (Dextrose) 250 mls @ 250 mls/2 hr IVPB DAILY@1200 [facility] ; Protocol Last Admin: 05/04/18 12:50 Dose: 250 mls/2 hr Latanoprost (Xalatan 0.005% Eye Drops -) 1 drop OD [facility] Last Admin: 05/04/18 21:43 Dose: 1 drop Losartan Potassium (Cozaar -) 25 mg PO DAILY [facility] Last Admin: 05/04/18 09:55 Dose: 25 mg Megestrol Acetate (Megace Oral Suspension -) 800 mg PO DAILY [facility] Last Admin: 05/04/18 09:56 Dose: 800 mg Metoprolol Tartrate (Lopressor -) 25 mg PO BID [facility] Last Admin: 05/04/18 21:42 Dose: 25 mg Mycophenolate Mofetil (Cellcept -) 1,000 mg PO BID [facility] Last Admin: 05/04/18 21:43 Dose: 1,000 mg Nifedipine (Procardia Xl -) 60 mg PO DAILY [facility] Last Admin: 05/04/18 09:54 Dose: 60 mg Paricalcitol (Zemplar -) 1 mcg PO DAILY [facility] Last Admin: 05/04/18 09:58 Dose: 1 mcg Raltegravir (Isentress -) 400 mg PO BID [facility] Last Admin: 05/04/18 21:43 Dose: 400 mg Tacrolimus (Prograf) 4 mg PO HS [facility] Last Admin: 05/04/18 21:39 Dose: 4 mg Tacrolimus (Prograf) 4 mg PO AM [facility] Last Admin: 05/04/18 06:09 Dose: 4 mg - Objective Vital Signs: Vital Signs Temperature 98.0 F 05/04/18 22:00 Pulse Rate 79 05/04/18 22:00 Respiratory Rate 18 05/04/18 22:00 Blood Pressure 123/56 L 05/04/18 22:00 O2 Sat by Pulse Oximetry (%) 98 05/04/18 21:00 Labs: CBC, BMP 05/03/18 06:30 05/03/18 12:35 INR, PTT INR 1.27 (0.83-1.09) H 05/02/18 07:40 Problem List - Problems (1) Diabetic foot ulcer Code(s): E11.621 - TYPE 2 DIABETES MELLITUS WITH FOOT ULCER; L97.509 - NON- PRESSURE CHRONIC ULCER OTH PRT UNSP FOOT W UNSP SEVERITY (2) Diabetes Code(s): E11.9 - TYPE 2 DIABETES MELLITUS WITHOUT COMPLICATIONS (3) CKD (chronic kidney disease) Code(s): N18.9 - CHRONIC KIDNEY DISEASE, UNSPECIFIED (4) HIV (human immunodeficiency virus infection) Code(s): B20 - HUMAN IMMUNODEFICIENCY VIRUS [HIV] DISEASE (5) HTN (hypertension) Code(s): I10 - ESSENTIAL (PRIMARY) HYPERTENSION (6) Renal transplant recipient Code(s): Z94.0 - KIDNEY TRANSPLANT STATUS (7) HLD (hyperlipidemia) Code(s): E78.5 - HYPERLIPIDEMIA, UNSPECIFIED
[2018-05-05] MEDS: ACETAMINOPHEN 325 MG TABLET (FP) PO PRN ×3 (06:10→22:47)
[2018-05-05 08:13] LABS: BASO % 0.1 % (0-2.0); EOS % 0.8 % (0-4.5); HEMATOCRIT 28.5 % (35.4-49); HEMOGLOBIN 8.8 GM/dL (11.7-16.9); LYMPH % 31.7 % (8-40); MCH 26.5 pg (25.7-33.7); MCHC 30.8 g/dl (32.0-35.9); MEAN CELL VOLUME 86.2 fl (80-96); MEAN PLT VOLUME 11.5 fl (7.5-11.1); MONO % 34.4 % (3.8-10.2); PLATELET COUNT 178 K/MM3 (134-434); RBC 3.31 M/mm3 (4.00-5.60); RDW 18.1 % (11.9-15.9); WHITE BLOOD COUNT 3.2 K/mm3 (4.0-10.0)
[2018-05-05 08:39] LABS: ALBUMIN 2.7 g/dl (3.4-5.0); ALK PHOS 58 U/L (45-117); ANION GAP 7 MMOL/L (8-16); BILIRUBIN,TOTAL 0.5 mg/dL (0.2-1); BLOOD UREA NITROGEN 16 mg/dL (7-18); CALCIUM 8.6 mg/dL (8.5-10.1); CHLORIDE 111 mmol/L (98-107); CO2 21 mmol/L (21-32); CREATININE 1.5 mg/dL (0.55-1.3); GLUCOSE,RANDOM 90 mg/dL (74-106); POTASSIUM 4.1 mmol/L (3.5-5.1); SGOT/AST 23 U/L (15-37); SGPT/ALT 19 U/L (13-61); SODIUM 139 mmol/L (136-145); TOT PROT 7.7 g/dl (6.4-8.2)
--- NOTE | 2018-05-05 09:02 | PN ---
Progress Note (short form) - Note Progress Note: POD#3. No pain. vss, Tmax 98.7 +clean dry dressing, wbc=3.2, normal post op pvd Betadine dressing change daily. IVABX as per ID. Will follow. Post op shoe right.
--- NOTE | 2018-05-05 09:36 | PN ---
Progress Note, Physician History of Present Illness: patient stable no new issues - Current Medication List Current Medications: Active Medications Acetaminophen (Tylenol -) 650 mg PO Q6H PRN PRN Reason: PAIN 4-6 Last Admin: 05/05/18 06:10 Dose: 650 mg Allopurinol (Zyloprim -) [address] [facility] Last Admin: 05/04/18 09:54 Dose: 100 mg Atorvastatin Calcium (Lipitor -) [address] [facility] Last Admin: 05/04/18 21:42 Dose: 80 mg Brimonidine Tartrate (Alphagan 0.2% -) [address] [facility] Last Admin: 05/04/18 21:43 Dose: 1 drop Cinacalcet (Sensipar -) [address] [facility] Last Admin: 05/04/18 09:59 Dose: 60 mg Docusate Sodium (Colace -) [address] [facility] Last Admin: 05/04/18 21:43 Dose: Not Given Ezetimibe (Zetia -) [address] [facility] Last Admin: 05/04/18 09:53 Dose: 10 mg Vancomycin HCl 1,250 mg/ (Dextrose) 250 mls @ 250 mls/2 hr IVPB DAILY@1200 [facility] ; Protocol Last Admin: 05/04/18 12:50 Dose: 250 mls/2 hr Latanoprost (Xalatan 0.005% Eye Drops -) 1 drop OD [facility] Last Admin: 05/04/18 21:43 Dose: 1 drop Losartan Potassium (Cozaar -) [address] [facility] Last Admin: 05/04/18 09:55 Dose: 25 mg Megestrol Acetate (Megace Oral Suspension -) [address] [facility] Last Admin: 05/04/18 09:56 Dose: 800 mg Metoprolol Tartrate (Lopressor -) [address] [facility] Last Admin: 05/04/18 21:42 Dose: 25 mg Mycophenolate Mofetil (Cellcept -) 1,[address] [facility] Last Admin: 05/04/18 21:43 Dose: 1,000 mg Nifedipine (Procardia Xl -) [address] [facility] Last Admin: 05/04/18 09:54 Dose: 60 mg Paricalcitol (Zemplar -) [address] [facility] Last Admin: 05/04/18 09:58 Dose: 1 mcg Raltegravir (Isentress -) [address] [facility] Last Admin: 05/04/18 21:43 Dose: 400 mg Tacrolimus (Prograf) [address] [facility] - Objective Vital Signs: Vital Signs Temperature 98.7 F 05/05/18 06:24 Pulse Rate 78 05/05/18 06:24 Respiratory Rate 20 05/05/18 06:24 Blood Pressure 157/76 05/05/18 06:24 O2 Sat by Pulse Oximetry (%) 98 05/04/18 21:00 Constitutional: Yes: No Distress, Calm Cardiovascular: Yes: Regular Rate and Rhythm Respiratory: Yes: Regular, CTA Bilaterally Gastrointestinal: Yes: Normal Bowel Sounds, Soft Musculoskeletal: Yes: WNL Extremities: Yes: Other Wound/Incision: Yes: Dressing Dry and Intact Neurological: Yes: Alert, Oriented Psychiatric: Yes: Alert, Oriented Labs: CBC, BMP 05/05/18 06:26 05/05/18 06:26 INR, PTT INR 1.27 (0.83-1.09) H 05/02/18 07:40 Assessment/Plan CKD kidney tranplant HIV HTN . DM cad HLD wound infection vre all reports noted sensitivities noted patient will need abx for 4--5 weeks continue vanco
[2018-05-05] MEDS ORDERED: PT OWN MED DRAWER 7, Y5N ONE ×3 (09:55→22:27)
[2018-05-05 10:03] LABS: ANISOCYTOSIS 0; MACROCYTOSIS 0; PLATELET ESTIMATE NORMAL
[2018-05-05] MEDS: LOSARTAN POTASSIUM 25 MG TABLET PO SCH (10:03)
[2018-05-05] MEDS: EZETIMIBE 10 MG TABLET (FP) PO SCH (10:05)
[2018-05-05] MEDS: METOPROLOL TARTRATE 50 MG TABLET (FP) PO SCH ×2 (10:05→22:36)
[2018-05-05] MEDS: MEGESTROL ACETATE 400 MG/10 ML UNIT DOSE CUP PO SCH (10:05)
[2018-05-05] MEDS: DOCUSATE SODIUM 100 MG CAPSULE (FP) PO SCH ×2 (10:05→22:36)
[2018-05-05] MEDS: ALLOPURINOL 100 MG TABLET (FP) PO SCH (10:05)
[2018-05-05] MEDS: RALTEGRAVIR POTASSIUM 400 MG TAB PO SCH ×2 (10:06→22:37)
[2018-05-05] MEDS: MYCOPHENOLATE MOFETIL 500 MG TABLET PO SCH ×2 (10:07→22:37)
[2018-05-05] MEDS: TACROLIMUS ANHYDROUS 1 MG CAPSULE PO SCH ×2 (10:08→22:38)
[2018-05-05] MEDS: NIFEdipine E.R 60 MG TABLET (UD) PO SCH (10:09)
[2018-05-05] MEDS: PARICALCITOL 1 MCG CAP PO SCH (10:09)
[2018-05-05] MEDS: CINACALCET HCL 30 MG TAB (FP) PO SCH (10:10)
[2018-05-05] MEDS: EMTRICITABINE/TENOFOV ALAFENAM (DESCOVY) TABLET PO SCH (10:10)
[2018-05-05] MEDS: BRIMONIDINE TARTRATE 0.2% OPHTHALMIC 5 ML BOTTLE OD SCH ×2 (10:17→22:40)
[2018-05-05] MEDS: VANCOMYCIN HCL 1,250 MG in DEXTROSE 5%-WATER - 250 ML IVPB SCH (12:15)
--- NOTE | 2018-05-05 16:27 | PN ---
Progress Note, Physician History of Present Illness: Pt seen and examined at bedside. He is awake and alert. He denies fevers or chills. - Current Medication List Current Medications: Active Medications Acetaminophen (Tylenol -) 650 mg PO Q6H PRN PRN Reason: PAIN 4-6 Last Admin: 05/05/18 12:35 Dose: 650 mg Allopurinol (Zyloprim -) 100 mg PO DAILY [facility] Last Admin: 05/05/18 10:05 Dose: 100 mg Atorvastatin Calcium (Lipitor -) 80 mg PO HS [facility] Last Admin: 05/04/18 21:42 Dose: 80 mg Brimonidine Tartrate (Alphagan 0.2% -) 1 drop OD BID [facility] Last Admin: 05/05/18 10:17 Dose: 1 drop Cinacalcet (Sensipar -) 60 mg PO DAILY [facility] Last Admin: 05/05/18 10:10 Dose: 60 mg Docusate Sodium (Colace -) 100 mg PO BID [facility] Last Admin: 05/05/18 10:05 Dose: 100 mg Ezetimibe (Zetia -) 10 mg PO DAILY [facility] Last Admin: 05/05/18 10:05 Dose: 10 mg Vancomycin HCl 1,250 mg/ (Dextrose) 250 mls @ 250 mls/2 hr IVPB DAILY@1200 [facility] ; Protocol Last Admin: 05/05/18 12:15 Dose: 250 mls/2 hr Latanoprost (Xalatan 0.005% Eye Drops -) 1 drop OD HS [facility] Last Admin: 05/04/18 21:43 Dose: 1 drop Losartan Potassium (Cozaar -) 25 mg PO DAILY [facility] Last Admin: 05/05/18 10:03 Dose: 25 mg Megestrol Acetate (Megace Oral Suspension -) 800 mg PO DAILY [facility] Last Admin: 05/05/18 10:05 Dose: 800 mg Metoprolol Tartrate (Lopressor -) 25 mg PO BID [facility] Last Admin: 05/05/18 10:05 Dose: 25 mg Mycophenolate Mofetil (Cellcept -) 1,000 mg PO BID [facility] Last Admin: 05/05/18 10:07 Dose: 1,000 mg Nifedipine (Procardia Xl -) 60 mg PO DAILY [facility] Last Admin: 05/05/18 10:09 Dose: 60 mg Paricalcitol (Zemplar -) 1 mcg PO DAILY [facility] Last Admin: 02/28/19 10:09 Dose: 1 mcg Raltegravir (Isentress -) 400 mg PO BID [facility] Last Admin: 05/05/18 10:06 Dose: 400 mg Tacrolimus (Prograf) 4 mg PO BID [facility] Last Admin: 05/05/18 10:08 Dose: 4 mg - Objective Vital Signs: Vital Signs Temperature 98.3 F 05/05/18 14:52 Pulse Rate 77 05/05/18 14:52 Respiratory Rate 19 05/05/18 14:52 Blood Pressure 131/67 05/05/18 14:52 O2 Sat by Pulse Oximetry (%) 98 05/05/18 09:00 Constitutional: Yes: Calm Eyes: Yes: Conjunctiva Clear HENT: Yes: Atraumatic Cardiovascular: Yes: S1, S2 Respiratory: Yes: CTA Bilaterally Gastrointestinal: Yes: Soft Genitourinary: Yes: Other (graft soft and non tender) Musculoskeletal: Yes: WNL Edema: No Wound/Incision: Yes: Dressing Dry and Intact Neurological: Yes: Oriented Psychiatric: Yes: Oriented Labs: CBC, BMP 05/05/18 06:26 05/05/18 06:26 INR, PTT INR 1.27 (0.83-1.09) H 05/02/18 07:40 Problem List - Problems (1) CKD (chronic kidney disease) Code(s): N18.9 - CHRONIC KIDNEY DISEASE, UNSPECIFIED Assessment/Plan Current Medications Generic Name Dose Route Start Last Admin Trade Name Freq PRN Reason Stop Dose Admin Acetaminophen 650 mg 05/02/18 15:39 05/05/18 12:35 Tylenol - PO 650 mg Q6H PRN Administration PAIN 4-6 Allopurinol 100 mg 05/03/18 10:00 05/05/18 10:05 Zyloprim - PO 100 mg DAILY [facility] Administration Atorvastatin Calcium 80 mg 05/02/18 22:00 05/04/18 21:42 Lipitor - PO 80 mg HS [facility] Administration Brimonidine Tartrate 1 drop 05/02/18 22:00 05/05/18 10:17 Alphagan 0.2% - OD 1 drop BID [facility] Administration Cinacalcet 60 mg 05/03/18 10:00 05/05/18 10:10 Sensipar - PO 60 mg DAILY [facility] Administration Docusate Sodium 100 mg 05/02/18 22:00 05/05/18 10:05 Colace - PO 100 mg BID [facility] Administration Ezetimibe 10 mg 05/03/18 10:00 05/05/18 10:05 Zetia - PO 10 mg DAILY [facility] Administration Vancomycin HCl 1,250 mg/ 250 mls @ 250 mls/2 hr 05/04/18 12:00 05/05/18 12:15 Dextrose IVPB 250 mls/2 hr DAILY@1200 [facility] Administration Protocol Latanoprost 1 drop 05/02/18 22:00 05/04/18 21:43 Xalatan 0.005% Eye Drops - OD 1 drop HS [facility] Administration Losartan Potassium 25 mg 05/03/18 10:00 05/05/18 10:03 Cozaar - PO 25 mg DAILY [facility] Administration Megestrol Acetate 800 mg 05/03/18 10:00 05/05/18 10:05 Megace Oral Suspension - PO 800 mg DAILY [facility] Administration Metoprolol Tartrate 25 mg 05/02/18 22:00 05/05/18 10:05 Lopressor - PO 25 mg BID [facility] Administration Mycophenolate Mofetil 1,000 mg 05/02/18 22:00 05/05/18 10:07 Cellcept - PO 1,000 mg BID [facility] Administration Nifedipine 60 mg 05/03/18 10:00 05/05/18 10:09 Procardia Xl - PO 60 mg DAILY [facility] Administration Paricalcitol 1 mcg 05/03/18 10:00 05/05/18 10:09 Zemplar - PO 1 mcg DAILY [facility] Administration Raltegravir 400 mg 05/02/18 22:00 05/05/18 10:06 Isentress - PO 400 mg BID [facility] Administration Tacrolimus 4 mg 05/05/18 10:00 05/05/18 10:08 Prograf PO 4 mg BID [facility] Administration Impression 1. CKD 2. kidney transplant 3. HIV 4. HTN 5. DM 6. cad 7. HLD 8. small hypodense mass in kidney Plan - renal function at baseline - renal lesion will be followed as outpt at his transplant center in [place], Dr Zamarripa aware - follow prograf level - cont prograf at 4 mg q 12 hrs - wound care
--- NOTE | 2018-05-05 17:10 | PATH ---
Surgical Pathology Report Patient Name: FRANCISCO OLEARY [facility]. Rec. #: [id number] /Age/Gender: 1945 (Age: 72) / M Account: [id number] Location: [facility] MED/SURG Taken: 05/02/2018 Received: 05/03/2018 Reported: 05/05/2018 Physicians: MYO Alves M.D. Specimen(s) Received A: RIGHT PROXIMAL PHALANX BONE B: RIGHT BIG TOE Clinical History Type 2 diabetes mellitus with diabetic peripheral neuropathy Final Diagnosis A. RIGHT PROXIMAL PHALANX BONE, EXCISION: PORTION OF BONE WITH REACTIVE CHANGE. NEGATIVE FOR OSTEOMYELITIS. B. RIGHT BIG TOE, AMPUTATION: AMPUTATED TOE SHOWING GANGRENOUS NECROSIS, SEVERE ACUTE AND CHRONIC INFLAMMATION WITH ABSCESS FORMATION. BONE WITH ACUTE OSTEOMYELITIS. MARGIN OF BONE, NEGATIVE FOR OSTEOMYELITIS. VIABLE SKIN AND SOFT TISSUE MARGIN. Electronically Signed Cami Villa M.D. Gross Description A. Received in formalin labeled "right proximal phalanx bone," is a 2.2 x 1.7 x 1.4 cm altman, irregular portion of bone. A food service representative full-thickness section is submitted in one cassette, following decalcification. B. Received in formalin labeled "right big toe," is a 5.5 x 3.8 x 3.5 cm toe amputation. The distal aspect of the specimen displays a 3.3 x 2.8 cm black, gangrenous lesion involving the underlying bone. The lesion focally extends to 0.6 cm from the skin and soft tissue margin. Toolroom Keeper sections are submitted in 3 cassettes as follows: 1-lesion with underlying bone, following decalcification; 2-bone margin, following decalcification; 3-skin and soft tissue margin. 05/04/201805/04/2018
[2018-05-05] MEDS: ATORVASTATIN CA 80 MG TABLET (FP) PO SCH (22:36)
[2018-05-05] MEDS: LATANOPROST 0.005% OPHTH SOLN 2.5ML BOTTLE OD SCH (22:39)
--- NOTE | 2018-05-06 01:02 | PN ---
Progress Note, Physician History of Present Illness: Pt seen and examined 05/05/18 however note is being entered now - Current Medication List Current Medications: Active Medications Acetaminophen (Tylenol -) 650 mg PO Q6H PRN PRN Reason: PAIN 4-6 Last Admin: 05/05/18 22:47 Dose: 650 mg Allopurinol (Zyloprim -) 100 mg PO DAILY [facility] Last Admin: 05/05/18 10:05 Dose: 100 mg Atorvastatin Calcium (Lipitor -) 80 mg PO HS [facility] Last Admin: 05/05/18 22:36 Dose: 80 mg Brimonidine Tartrate (Alphagan 0.2% -) 1 drop OD BID [facility] Last Admin: 05/05/18 22:40 Dose: 1 drop Cinacalcet (Sensipar -) 60 mg PO DAILY [facility] Last Admin: 05/05/18 10:10 Dose: 60 mg Docusate Sodium (Colace -) 100 mg PO BID [facility] Last Admin: 05/05/18 22:36 Dose: 100 mg Ezetimibe (Zetia -) 10 mg PO DAILY [facility] Last Admin: 05/05/18 10:05 Dose: 10 mg Vancomycin HCl 1,250 mg/ (Dextrose) 250 mls @ 250 mls/2 hr IVPB DAILY@1200 [facility] ; Protocol Last Admin: 05/05/18 12:15 Dose: 250 mls/2 hr Latanoprost (Xalatan 0.005% Eye Drops -) 1 drop OD [facility] Last Admin: 05/05/18 22:39 Dose: 1 drop Losartan Potassium (Cozaar -) 25 mg PO DAILY [facility] Last Admin: 05/05/18 10:03 Dose: 25 mg Megestrol Acetate (Megace Oral Suspension -) 800 mg PO DAILY [facility] Last Admin: 05/05/18 10:05 Dose: 800 mg Metoprolol Tartrate (Lopressor -) 25 mg PO BID [facility] Last Admin: 05/05/18 22:36 Dose: 25 mg Mycophenolate Mofetil (Cellcept -) 1,000 mg PO BID [facility] Last Admin: 05/05/18 22:37 Dose: 1,000 mg Nifedipine (Procardia Xl -) 60 mg PO DAILY [facility] Last Admin: 05/05/18 10:09 Dose: 60 mg Paricalcitol (Zemplar -) 1 mcg PO DAILY [facility] Last Admin: 05/05/18 10:09 Dose: 1 mcg Raltegravir (Isentress -) 400 mg PO BID [facility] Last Admin: 05/05/18 22:37 Dose: 400 mg Tacrolimus (Prograf) 4 mg PO BID [facility] Last Admin: 05/05/18 22:38 Dose: 4 mg - Objective Vital Signs: Vital Signs Temperature 99.0 F 05/05/18 21:13 Pulse Rate 76 05/05/18 21:13 Respiratory Rate 18 05/05/18 21:13 Blood Pressure 142/75 05/05/18 21:13 O2 Sat by Pulse Oximetry (%) 98 05/05/18 09:00 Neck: Yes: WNL, Supple Cardiovascular: Yes: WNL, Regular Rate and Rhythm Respiratory: Yes: WNL, Regular, CTA Bilaterally Gastrointestinal: Yes: WNL, Normal Bowel Sounds, Soft Extremities: Yes: Other (Rt foot in dressing) Labs: CBC, BMP 05/05/18 06:26 05/05/18 06:26 INR, PTT INR 1.27 (0.83-1.09) H 05/02/18 07:40 Problem List - Problems (1) Diabetic foot ulcer Assessment/Plan: S/P amputation Rt big toe Cont IV antibxs Wound culture (+) for staph aureus/Vr Ec faecalis Code(s): E11.621 - TYPE 2 DIABETES MELLITUS WITH FOOT ULCER; L97.509 - NON- PRESSURE CHRONIC ULCER OTH PRT UNSP FOOT W UNSP SEVERITY (2) Diabetes Code(s): E11.9 - TYPE 2 DIABETES MELLITUS WITHOUT COMPLICATIONS (3) CKD (chronic kidney disease) Code(s): N18.9 - CHRONIC KIDNEY DISEASE, UNSPECIFIED (4) HIV (human immunodeficiency virus infection) Code(s): B20 - HUMAN IMMUNODEFICIENCY VIRUS [HIV] DISEASE (5) HTN (hypertension) Code(s): I10 - ESSENTIAL (PRIMARY) HYPERTENSION (6) Renal transplant recipient Code(s): Z94.0 - KIDNEY TRANSPLANT STATUS (7) HLD (hyperlipidemia) Code(s): E78.5 - HYPERLIPIDEMIA, UNSPECIFIED
--- NOTE | 2018-05-06 10:04 | PN ---
Progress Note (short form) - Note Progress Note: POD#4. No pain. vss, Tmax 98.7 +clean dry dressing, wbc=3.2, normal post op pvd Betadine dressing change daily. IVABX as per ID. Will follow. Post op shoe right.
[2018-05-06] MEDS ORDERED: PT OWN MED DRAWER 7, Y5N ONE ×2 (10:11→21:23)
[2018-05-06] MEDS: DOCUSATE SODIUM 100 MG CAPSULE (FP) PO SCH ×2 (10:14→21:25)
[2018-05-06] MEDS: LOSARTAN POTASSIUM 25 MG TABLET PO SCH (10:14)
[2018-05-06] MEDS: METOPROLOL TARTRATE 50 MG TABLET (FP) PO SCH ×2 (10:14→21:34)
[2018-05-06] MEDS: ALLOPURINOL 100 MG TABLET (FP) PO SCH (10:14)
[2018-05-06] MEDS: MEGESTROL ACETATE 400 MG/10 ML UNIT DOSE CUP PO SCH (10:15)
[2018-05-06] MEDS: EZETIMIBE 10 MG TABLET (FP) PO SCH (10:15)
[2018-05-06] MEDS: NIFEdipine E.R 60 MG TABLET (UD) PO SCH (10:16)
[2018-05-06] MEDS: CINACALCET HCL 30 MG TAB (FP) PO SCH (10:18)
[2018-05-06] MEDS: EMTRICITABINE/TENOFOV ALAFENAM (DESCOVY) TABLET PO SCH (10:18)
[2018-05-06] MEDS: PARICALCITOL 1 MCG CAP PO SCH (10:18)
[2018-05-06] MEDS: RALTEGRAVIR POTASSIUM 400 MG TAB PO SCH ×2 (10:19→21:27)
[2018-05-06] MEDS: TACROLIMUS ANHYDROUS 1 MG CAPSULE PO SCH ×2 (10:19→21:26)
[2018-05-06] MEDS: MYCOPHENOLATE MOFETIL 500 MG TABLET PO SCH ×2 (10:20→21:27)
[2018-05-06] MEDS: BRIMONIDINE TARTRATE 0.2% OPHTHALMIC 5 ML BOTTLE OD SCH ×2 (10:21→21:32)
[2018-05-06] MEDS: VANCOMYCIN HCL 1,250 MG in DEXTROSE 5%-WATER - 250 ML IVPB SCH (11:18)
--- NOTE | 2018-05-06 13:05 | PN ---
Progress Note, Physician History of Present Illness: patient doing well no issues all cx reports noted - Current Medication List Current Medications: Active Medications Acetaminophen (Tylenol -) 650 mg PO Q6H PRN PRN Reason: PAIN 4-6 Last Admin: 05/05/18 22:47 Dose: 650 mg Allopurinol (Zyloprim -) 100 mg PO DAILY [facility] Last Admin: 05/06/18 10:14 Dose: 100 mg Atorvastatin Calcium (Lipitor -) 80 mg PO HS [facility] Last Admin: 05/05/18 22:36 Dose: 80 mg Brimonidine Tartrate (Alphagan 0.2% -) 1 drop OD BID [facility] Last Admin: 05/06/18 10:21 Dose: 1 drop Cinacalcet (Sensipar -) 60 mg PO DAILY [facility] Last Admin: 05/06/18 10:18 Dose: 60 mg Docusate Sodium (Colace -) 100 mg PO BID [facility] Last Admin: 05/06/18 10:14 Dose: 100 mg Ezetimibe (Zetia -) 10 mg PO DAILY [facility] Last Admin: 05/06/18 10:15 Dose: 10 mg Vancomycin HCl 1,250 mg/ (Dextrose) 250 mls @ 250 mls/2 hr IVPB DAILY@1200 [facility] ; Protocol Last Admin: 05/06/18 11:18 Dose: 250 mls/2 hr Latanoprost (Xalatan 0.005% Eye Drops -) 1 drop OD [facility] Last Admin: 05/05/18 22:39 Dose: 1 drop Losartan Potassium (Cozaar -) 25 mg PO DAILY [facility] Last Admin: 05/06/18 10:14 Dose: 25 mg Megestrol Acetate (Megace Oral Suspension -) 800 mg PO DAILY [facility] Last Admin: 05/06/18 10:15 Dose: 800 mg Metoprolol Tartrate (Lopressor -) 25 mg PO BID [facility] Last Admin: 05/06/18 10:14 Dose: 25 mg Mycophenolate Mofetil (Cellcept -) 1,000 mg PO BID [facility] Last Admin: 05/06/18 10:20 Dose: 1,000 mg Nifedipine (Procardia Xl -) 60 mg PO DAILY [facility] Last Admin: 05/06/18 10:16 Dose: 60 mg Paricalcitol (Zemplar -) 1 mcg PO DAILY [facility] Last Admin: 05/06/18 10:18 Dose: 1 mcg Raltegravir (Isentress -) 400 mg PO BID [facility] Last Admin: 05/06/18 10:19 Dose: 400 mg Tacrolimus (Prograf) 4 mg PO BID [facility] Last Admin: 05/06/18 10: Dose: 4 mg - Objective Vital Signs: Vital Signs Temperature 98.5 F 05/06/18 09:00 Pulse Rate 78 05/06/18 09:00 Respiratory Rate 20 05/06/18 09:00 Blood Pressure 158/70 05/06/18 09:00 O2 Sat by Pulse Oximetry (%) 98 05/05/18 09:00 Constitutional: Yes: No Distress, Calm Cardiovascular: Yes: Regular Rate and Rhythm Respiratory: Yes: Regular, CTA Bilaterally Gastrointestinal: Yes: Normal Bowel Sounds, Soft Musculoskeletal: Yes: WNL Extremities: Yes: Other Wound/Incision: Yes: Dressing Dry and Intact Neurological: Yes: Alert, Oriented Psychiatric: Yes: Alert, Oriented Labs: CBC, BMP 05/05/18 06:26 05/05/18 06:26 INR, PTT INR 1.27 (0.83-1.09) H 05/02/18 07:40 Assessment/Plan CKD kidney tranplant HIV HTN . DM cad HLD wound infection vre plan new cx noted patient needs to be dapto for 5 weeks rest as per the team wound care
[2018-05-06] MEDS ORDERED: DAPTOMYCIN IVPB SCH (13:15)
[2018-05-06] MEDS ORDERED: SODIUM CHLORIDE IVPB SCH (13:15)
--- NOTE | 2018-05-06 13:22 | DS ---
Physical Examination Vital Signs: Vital Signs Temperature 98.5 F 05/06/18 09:00 Pulse Rate 78 05/06/18 09:00 Respiratory Rate 20 05/06/18 09:00 Blood Pressure 158/70 05/06/18 09:00 O2 Sat by Pulse Oximetry (%) 98 05/05/18 09:00 Labs: CBC, BMP 05/05/18 06:26 05/05/18 06:26 Discharge Summary Reason For Visit: TYPE 2 DIABETES MELLITUS WITH DIABETIC PERIPHERAL Current Active Problems CKD (chronic kidney disease) (Acute) Complex renal cyst (Acute) Diabetes (Acute) Diabetic foot ulcer (Acute) HIV (human immunodeficiency virus infection) (Acute) HLD (hyperlipidemia) (Acute) HTN (hypertension) (Acute) Hyperlipidemia (Acute) PAD (peripheral artery disease) (Acute) Renal transplant recipient (Acute) Type 2 diabetes mellitus with diabetic peripheral angiopathy with gangrene ( Acute) Other Procedures: Amputation of Right big toe Hospital Course: Pt is a 72 year old male who presented to the ER initially for gangrene of Rt big toe. He has history of CKD, kidney transplant, a-fib, HIV, DM, HTN, gout and PVD. He denies shortness of breath. he denies fevers or chill. 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 Pt was seen by renal/ID/podiatry and vascular surgeon. Pt subsequently underwent amputation of Rt big toe and now needs 5 weeks of IV dapto. Pt should have weekly CBC, CMET and prograft levels. Once antibxs are done PIC line should be removed. Cont wound care of right foot. Condition: Good - Instructions Diet, Activity, Other Instructions: 2 gram sodium diet IV antibxs should be continued through PIC line for another 5 weeks and then stopped and PIC line removed Weekly CB CMET and prograft levels Referrals: Helga Morris MD [Primary Care Provider] - [facility]position: [facility] - Home Medications Comprehensive Discharge Medication List: Ambulatory Orders Allopurinol [Zyloprim -] 100 mg PO DAILY 04/27/18 Aspirin [ASA -] 81 mg PO DAILY 04/27/18 Atorvastatin Ca [Lipitor] 80 mg PO HS 04/27/18 Brimonidine Tartrate [Alphagan 0.2% -] 1 drop BID 04/27/18 Cinacalcet HCl [Sensipar] 60 mg PO DAILY 04/27/18 Clopidogrel Bisulfate [Plavix] 75 mg PO DAILY 04/27/18 Docusate Sodium [Colace] 100 mg PO BID 04/27/18 Emtricitabine/Tenofov Alafenam [Descovy 200-25 mg Tablet (Nf)] 1 each PO DAILY 04/27/18 Ezetimibe 10 mg PO DAILY 04/27/18 Latanoprost 0.005% Eye Drops [Xalatan 0.005% Eye Drops -] 1 drop HS 04/27/18 Losartan Potassium 25 mg PO DAILY 04/27/18 Megestrol Acetate 20 ml PO DAILY 04/27/18 Metoprolol Tartrate [Lopressor] 25 mg PO BID 04/27/18 Mycophenolate Mofetil 1,000 mg PO BID 04/27/18 Nifedipine ER [Procardia XL -] 60 mg PO DAILY 04/27/18 Paricalcitol 1 mcg PO DAILY 04/27/18 Raltegravir [Isentress] 400 mg PO BID 04/27/18 Acetaminophen [Tylenol .Regular Strength -] 650 mg PO Q6H PRN tablet 05/06/18 Daptomycin [Cubicin (Restricted To Id) -] 410 mg IVPB DAILY vial 05/06/18 Emtricitabine/Tenofov Alafenam [Descovy 200-25 mg Tablet (Nf)] 1 each PO DAILY tablet 05/06/18 Tacrolimus Anhydrous [Prograf] 4 mg PO BID capsule 05/06/18
--- NOTE | 2018-05-06 17:29 | PN ---
Progress Note, Physician History of Present Illness: Pt seen and examined at bedside. He is awake and alert. - Current Medication List Current Medications: Active Medications Acetaminophen (Tylenol -) 650 mg PO Q6H PRN PRN Reason: PAIN 4-6 Last Admin: 05/05/18 22:47 Dose: 650 mg Allopurinol (Zyloprim -) 100 mg PO DAILY [facility] Last Admin: 05/06/18 10:14 Dose: 100 mg Atorvastatin Calcium (Lipitor -) 80 mg PO HS [facility] Last Admin: 05/05/18 22:36 Dose: 80 mg Brimonidine Tartrate (Alphagan 0.2% -) 1 drop OD BID [facility] Last Admin: 05/06/18 10:21 Dose: 1 drop Cinacalcet (Sensipar -) 60 mg PO DAILY [facility] Last Admin: 05/06/18 10:18 Dose: 60 mg Docusate Sodium (Colace -) 100 mg PO BID [facility] Last Admin: 05/06/18 10:14 Dose: 100 mg Ezetimibe (Zetia -) 10 mg PO DAILY [facility] Last Admin: 05/06/18 10:15 Dose: 10 mg Daptomycin 410 mg/ Sodium (Chloride) 50 mls @ 100 mls/hr IVPB DAILY [facility] Latanoprost (Xalatan 0.005% Eye Drops -) 1 drop OD HS [facility] Last Admin: 05/05/18 22:39 Dose: 1 drop Losartan Potassium (Cozaar -) 25 mg PO DAILY [facility] Last Admin: 05/06/18 10:14 Dose: 25 mg Megestrol Acetate (Megace Oral Suspension -) 800 mg PO DAILY [facility] Last Admin: 05/06/18 10:15 Dose: 800 mg Metoprolol Tartrate (Lopressor -) 25 mg PO BID [facility] Last Admin: 05/06/18 10:14 Dose: 25 mg Mycophenolate Mofetil (Cellcept -) 1,000 mg PO BID [facility] Last Admin: 05/06/18 10:20 Dose: 1,000 mg Nifedipine (Procardia Xl -) 60 mg PO DAILY [facility] Last Admin: 05/06/18 10:16 Dose: 60 mg Paricalcitol (Zemplar -) 1 mcg PO DAILY [facility] Last Admin: 05/06/18 10:18 Dose: 1 mcg Raltegravir (Isentress -) 400 mg PO BID [facility] Last Admin: 05/06/18 10:19 Dose: 400 mg Tacrolimus (Prograf) 4 mg PO BID [facility] Last Admin: 05/06/18 10:19 Dose: 4 mg - Objective Vital Signs: Vital Signs Temperature 98.5 F 05/06/18 09:00 Pulse Rate 78 05/06/18 09:00 Respiratory Rate 20 05/06/18 09:00 Blood Pressure 158/70 05/06/18 09:00 O2 Sat by Pulse Oximetry (%) 98 05/05/18 09:00 Constitutional: Yes: Calm Eyes: Yes: Conjunctiva Clear HENT: Yes: Atraumatic Neck: Yes: Supple Cardiovascular: Yes: S1, S2 Respiratory: Yes: Regular Genitourinary: Yes: Other (graft soft and non tender) Edema: No Wound/Incision: Yes: Dressing Dry and Intact Neurological: Yes: Oriented Psychiatric: Yes: Oriented Labs: CBC, BMP 05/05/18 06:26 05/05/18 06:26 INR, PTT INR 1.27 (0.83-1.09) H 05/02/18 07:40 Problem List - Problems (1) CKD (chronic kidney disease) Code(s): N18.9 - CHRONIC KIDNEY DISEASE, UNSPECIFIED Assessment/Plan Current Medications Generic Name Dose Route Start Last Admin Trade Name Freq PRN Reason Stop Dose Admin Acetaminophen 650 mg 05/02/18 15:39 05/05/18 22:47 Tylenol - PO 650 mg Q6H PRN Administration PAIN 4-6 Allopurinol 100 mg 05/03/18 10:00 05/06/18 10:14 Zyloprim - PO 100 mg DAILY [facility] Administration Atorvastatin Calcium 80 mg 05/02/18 22:00 05/05/18 22:36 Lipitor - PO 80 mg HS [facility] Administration Brimonidine Tartrate 1 drop 05/02/18 22:00 05/06/18 10:21 Alphagan 0.2% - OD 1 drop BID [facility] Administration Cinacalcet 60 mg 05/03/18 10:00 05/06/18 10:18 Sensipar - PO 60 mg DAILY [facility] Administration Docusate Sodium 100 mg 05/02/18 22:00 05/06/18 10:14 Colace - PO 100 mg BID [facility] Administration Ezetimibe 10 mg 05/03/18 10:00 05/06/18 10:15 Zetia - PO 10 mg DAILY [facility] Administration Daptomycin 410 mg/ Sodium 50 mls @ 100 mls/hr 05/06/18 16:00 Chloride IVPB DAILY [facility] Latanoprost 1 drop 05/02/18 22:00 05/05/18 22:39 Xalatan 0.005% Eye Drops - OD 1 drop HS [facility] Administration Losartan Potassium 25 mg 05/03/18 10:00 05/06/18 10:14 Cozaar - PO 25 mg DAILY [facility] Administration Megestrol Acetate 800 mg 05/03/18 10:00 05/06/18 10:15 Megace Oral Suspension - PO 800 mg DAILY [facility] Administration Metoprolol Tartrate 25 mg 05/02/18 22:00 05/06/18 10:14 Lopressor - PO 25 mg BID [facility] Administration Mycophenolate Mofetil 1,000 mg 05/02/18 22:00 05/06/18 10:20 Cellcept - PO 1,000 mg BID [facility] Administration Nifedipine 60 mg 05/03/18 10:00 05/06/18 10:16 Procardia Xl - PO 60 mg DAILY [facility] Administration Paricalcitol 1 mcg 05/03/18 10:00 05/06/18 10:18 Zemplar - PO 1 mcg DAILY [facility] Administration Raltegravir 400 mg 05/02/18 22:00 05/06/18 10:19 Isentress - PO 400 mg BID [facility] Administration Tacrolimus 4 mg 05/05/18 10:00 05/06/18 10:19 Prograf PO 4 mg BID [facility] Administration Laboratory Tests 04/29/18 05/03/18 06:00 06:30 Tacrolimus 9.9 Pending Impression 1. CKD 2. kidney transplant 3. HIV 4. HTN 5. DM 6. cad 7. HLD 8. 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
[2018-05-06] MEDS: DAPTOMYCIN IVPB SCH (17:48)
[2018-05-06] MEDS: SODIUM CHLORIDE IVPB SCH (17:48)
[2018-05-06] MEDS: ACETAMINOPHEN 325 MG TABLET (FP) PO PRN (17:50)
[2018-05-06] MEDS: ATORVASTATIN CA 80 MG TABLET (FP) PO SCH (21:25)
[2018-05-06] MEDS: LATANOPROST 0.005% OPHTH SOLN 2.5ML BOTTLE OD SCH (21:32)
--- NOTE | 2018-05-06 23:08 | PN ---
Progress Note, Physician - Current Medication List Current Medications: Active Medications Acetaminophen (Tylenol -) 650 mg PO Q6H PRN PRN Reason: PAIN 4-6 Last Admin: 05/06/18 17:50 Dose: 650 mg Allopurinol (Zyloprim -) 100 mg PO DAILY [facility] Last Admin: 05/06/18 10:14 Dose: 100 mg Atorvastatin Calcium (Lipitor -) 80 mg PO HS [facility] Last Admin: 05/06/18 21:25 Dose: 80 mg Brimonidine Tartrate (Alphagan 0.2% -) 1 drop OD BID [facility] Last Admin: 05/06/18 21:32 Dose: 1 drop Cinacalcet (Sensipar -) 60 mg PO DAILY [facility] Last Admin: 05/06/18 10:18 Dose: 60 mg Docusate Sodium (Colace -) 100 mg PO BID [facility] Last Admin: 05/06/18 21:25 Dose: 100 mg Ezetimibe (Zetia -) 10 mg PO DAILY [facility] Last Admin: 05/06/18 10:15 Dose: 10 mg Daptomycin 410 mg/ Sodium (Chloride) 50 mls @ 100 mls/hr IVPB DAILY [facility] Last Admin: 05/06/18 17:48 Dose: 100 mls/hr Latanoprost (Xalatan 0.005% Eye Drops -) 1 drop OD HS [facility] Last Admin: 05/06/18 21:32 Dose: 1 drop Losartan Potassium (Cozaar -) 25 mg PO DAILY [facility] Last Admin: 05/06/18 10:14 Dose: 25 mg Megestrol Acetate (Megace Oral Suspension -) 800 mg PO DAILY [facility] Last Admin: 05/06/18 10:15 Dose: 800 mg Metoprolol Tartrate (Lopressor -) 25 mg PO BID [facility] Last Admin: 05/06/18 21:34 Dose: 25 mg Mycophenolate Mofetil (Cellcept -) 1,000 mg PO BID [facility] Last Admin: 05/06/18 21:27 Dose: 1,000 mg Nifedipine (Procardia Xl -) 60 mg PO DAILY [facility] Last Admin: 05/06/18 10:16 Dose: 60 mg Paricalcitol (Zemplar -) 1 mcg PO DAILY [facility] Last Admin: 05/06/18 10:18 Dose: 1 mcg Raltegravir (Isentress -) 400 mg PO BID [facility] Last Admin: 05/06/18 21:27 Dose: 400 mg Tacrolimus (Prograf) 4 mg PO HS [facility] Last Admin: 05/06/18 21:26 Dose: 4 mg Tacrolimus (Prograf) 5 mg PO DAILY [facility] - Objective Vital Signs: Vital Signs Temperature 98.7 F 05/06/18 20:51 Pulse Rate 81 05/06/18 20:51 Respiratory Rate 18 05/06/18 20:51 Blood Pressure 143/73 05/06/18 20:51 O2 Sat by Pulse Oximetry (%) 98 05/05/18 09:00 Labs: CBC, BMP 05/05/18 06:26 05/05/18 06:26 INR, PTT INR 1.27 (0.83-1.09) H 05/02/18 07:40 Problem List - Problems (1) Diabetic foot ulcer Code(s): E11.621 - TYPE 2 DIABETES MELLITUS WITH FOOT ULCER; L97.509 - NON- PRESSURE CHRONIC ULCER OTH PRT UNSP FOOT W UNSP SEVERITY (2) Diabetes Code(s): E11.9 - TYPE 2 DIABETES MELLITUS WITHOUT COMPLICATIONS (3) CKD (chronic kidney disease) Code(s): N18.9 - CHRONIC KIDNEY DISEASE, UNSPECIFIED (4) HIV (human immunodeficiency virus infection) Code(s): B20 - HUMAN IMMUNODEFICIENCY VIRUS [HIV] DISEASE (5) HTN (hypertension) Code(s): I10 - ESSENTIAL (PRIMARY) HYPERTENSION (6) Renal transplant recipient Code(s): Z94.0 - KIDNEY TRANSPLANT STATUS (7) HLD (hyperlipidemia) Code(s): E78.5 - HYPERLIPIDEMIA, UNSPECIFIED
[2018-05-07] MEDS ORDERED: PT OWN MED DRAWER 7, Y5N ONE ×3 (08:47→20:54)
[2018-05-07] MEDS: LOSARTAN POTASSIUM 25 MG TABLET PO SCH (09:04)
[2018-05-07] MEDS: ALLOPURINOL 100 MG TABLET (FP) PO SCH (09:04)
[2018-05-07] MEDS: METOPROLOL TARTRATE 50 MG TABLET (FP) PO SCH ×2 (09:04→21:51)
[2018-05-07] MEDS: NIFEdipine E.R 60 MG TABLET (UD) PO SCH (09:06)
[2018-05-07] MEDS: DOCUSATE SODIUM 100 MG CAPSULE (FP) PO SCH ×2 (09:06→21:49)
[2018-05-07] MEDS: EZETIMIBE 10 MG TABLET (FP) PO SCH (09:06)
[2018-05-07] MEDS: MEGESTROL ACETATE 400 MG/10 ML UNIT DOSE CUP PO SCH (09:06)
[2018-05-07] MEDS: BRIMONIDINE TARTRATE 0.2% OPHTHALMIC 5 ML BOTTLE OD SCH ×2 (09:07→21:51)
[2018-05-07] MEDS: MYCOPHENOLATE MOFETIL 500 MG TABLET PO SCH ×2 (09:10→21:48)
[2018-05-07] MEDS: EMTRICITABINE/TENOFOV ALAFENAM (DESCOVY) TABLET PO SCH (09:11)
[2018-05-07] MEDS: RALTEGRAVIR POTASSIUM 400 MG TAB PO SCH ×2 (09:12→21:48)
[2018-05-07] MEDS: TACROLIMUS ANHYDROUS 5 MG CAPSULE PO SCH (09:13)
[2018-05-07] MEDS: CINACALCET HCL 30 MG TAB (FP) PO SCH (09:14)
[2018-05-07] MEDS: PARICALCITOL 1 MCG CAP PO SCH (09:14)
[2018-05-07] MEDS ORDERED: DAPTOMYCIN IVPB SCH (10:00)
[2018-05-07] MEDS ORDERED: SODIUM CHLORIDE IVPB SCH (10:00)
[2018-05-07] MEDS: ACETAMINOPHEN 325 MG TABLET (FP) PO PRN (10:03)
[2018-05-07] MEDS: SODIUM CHLORIDE IVPB SCH (11:36)
[2018-05-07] MEDS: DAPTOMYCIN IVPB SCH (11:36)
--- NOTE | 2018-05-07 16:10 | PN ---
Progress Note, Physician History of Present Illness: Pt seen and examined, labs/imaging results noted, events reviewed. He states he feels well in general. No current foot pain. - Current Medication List Current Medications: Active Medications Acetaminophen (Tylenol -) 650 mg PO Q6H PRN PRN Reason: PAIN 4-6 Last Admin: 05/07/18 10:03 Dose: 650 mg Allopurinol (Zyloprim -) 100 mg PO DAILY [facility] Last Admin: 05/07/18 09:04 Dose: 100 mg Atorvastatin Calcium (Lipitor -) 80 mg PO HS [facility] Last Admin: 05/06/18 21:25 Dose: 80 mg Brimonidine Tartrate (Alphagan 0.2% -) 1 drop OD BID [facility] Last Admin: 05/07/18 09:07 Dose: 1 drop Cinacalcet (Sensipar -) 60 mg PO DAILY [facility] Last Admin: 05/07/18 09:14 Dose: 60 mg Docusate Sodium (Colace -) 100 mg PO BID [facility] Last Admin: 05/07/18 09:06 Dose: 100 mg Ezetimibe (Zetia -) 10 mg PO DAILY [facility] Last Admin: 05/07/18 09:06 Dose: 10 mg Daptomycin 410 mg/ Sodium (Chloride) 50 mls @ 100 mls/hr IVPB DAILY [facility] Last Admin: 05/07/18 11:36 Dose: 100 mls/hr Latanoprost (Xalatan 0.005% Eye Drops -) 1 drop OD HS [facility] Last Admin: 05/06/18 21:32 Dose: 1 drop Losartan Potassium (Cozaar -) 25 mg PO DAILY [facility] Last Admin: 05/07/18 09:04 Dose: 25 mg Megestrol Acetate (Megace Oral Suspension -) 800 mg PO DAILY [facility] Last Admin: 05/07/18 09:06 Dose: 800 mg Metoprolol Tartrate (Lopressor -) 25 mg PO BID [facility] Last Admin: 05/07/18 09:04 Dose: 25 mg Mycophenolate Mofetil (Cellcept -) 1,000 mg PO BID [facility] Last Admin: 05/07/18 09:10 Dose: 1,000 mg Nifedipine (Procardia Xl -) 60 mg PO DAILY [facility] Last Admin: 05/07/18 09:06 Dose: 60 mg Paricalcitol (Zemplar -) 1 mcg PO DAILY [facility] Last Admin: 05/07/18 09:14 Dose: 1 mcg Raltegravir (Isentress -) 400 mg PO BID [facility] Last Admin: 05/07/18 09:12 Dose: 400 mg Tacrolimus (Prograf) 4 mg PO HS [facility] Last Admin: 05/06/18 21:26 Dose: 4 mg Tacrolimus (Prograf) 5 mg PO DAILY [facility] Last Admin: 05/07/18 09:13 Dose: 5 mg - Objective Vital Signs: Vital Signs Temperature 99.1 F 05/07/18 15:32 Pulse Rate 78 05/07/18 15:32 Respiratory Rate 18 05/07/18 15:32 Blood Pressure 125/59 L 05/07/18 15:32 O2 Sat by Pulse Oximetry (%) 98 05/05/18 09:00 Constitutional: Yes: No Distress, Calm Cardiovascular: Yes: Regular Rate and Rhythm Respiratory: Yes: Regular Gastrointestinal: Yes: Normal Bowel Sounds, Soft Wound/Incision: Yes: Dressing Dry and Intact Neurological: Yes: Alert Labs: CBC, BMP 05/05/18 06:26 05/05/18 06:26 INR, PTT INR 1.27 (0.83-1.09) H 05/02/18 07:40 Microbiology 05/02/18 10:00 Bone Gram Stain - Final 05/02/18 10:00 Bone Tissue Culture - Final Staphylococcus Aureus 05/02/18 10:00 Bone Anaerobic Culture - Final NO ANAEROBES WERE ISOLATED 05/04/18 01:55 Blood - Peripheral Venous Blood Culture - Preliminary NO GROWTH OBTAINED AFTER 72 HOURS, INCUBATION TO CONTINUE FOR 2 DAYS. 05/02/18 10:00 Toe - Right Hallux Gram Stain - Final 05/02/18 10:00 Toe - Right Hallux Wound Culture - Final Staphylococcus Aureus Corynebacterium Striatum Vr Ec Faecalis 04/27/18 17:50 Blood - Peripheral Venous Blood Culture - Final NO GROWTH AFTER 5 DAYS INCUBATION 04/27/18 17:50 Blood - Peripheral Venous Blood Culture - Final NO GROWTH AFTER 5 DAYS INCUBATION 04/27/18 17:58 Toe - Right Hallux Gram Stain - Final 04/27/18 17:58 Toe - Right Hallux Wound Culture - Final Staphylococcus Aureus Vr Ec Faecalis Diphtheroid/Corynebacterium Problem List - Problems (1) CKD (chronic kidney disease) Code(s): N18.9 - CHRONIC KIDNEY DISEASE, UNSPECIFIED (2) Type 2 diabetes mellitus with diabetic peripheral angiopathy with gangrene Code(s): E11.52 - TYPE 2 DIABETES W DIABETIC PERIPHERAL ANGIOPATHY W GANGRENE Qualifiers: Diabetes mellitus chcf insulin use: unspecified chcf insulin use status Qualified Code(s): E11.52 - Type 2 diabetes mellitus with diabetic peripheral angiopathy with gangrene Assessment/Plan Rt toe gangrene s/p amputation HIV VERÓNICA on CKD s/p renal transplant DM AFIB Gout -- continue Daptomycin as discussed -- check cpk, monitor weekly while on antibiotic -- continue ARVs -- Podiatry following
--- NOTE | 2018-05-07 16:30 | PN ---
Progress Note, Physician History of Present Illness: Pt seen and examined at bedside. He is awake and alert. He denies shortness of breath. - Current Medication List Current Medications: Active Medications Acetaminophen (Tylenol -) 650 mg PO Q6H PRN PRN Reason: PAIN 4-6 Last Admin: 05/07/18 10:03 Dose: 650 mg Allopurinol (Zyloprim -) 100 mg PO DAILY [facility] Last Admin: 05/07/18 09:04 Dose: 100 mg Atorvastatin Calcium (Lipitor -) 80 mg PO HS [facility] Last Admin: 05/06/18 21:25 Dose: 80 mg Brimonidine Tartrate (Alphagan 0.2% -) 1 drop OD BID [facility] Last Admin: 05/07/18 09:07 Dose: 1 drop Cinacalcet (Sensipar -) 60 mg PO DAILY [facility] Last Admin: 05/07/18 09:14 Dose: 60 mg Docusate Sodium (Colace -) 100 mg PO BID [facility] Last Admin: 05/07/18 09:06 Dose: 100 mg Ezetimibe (Zetia -) 10 mg PO DAILY [facility] Last Admin: 05/07/18 09:06 Dose: 10 mg Daptomycin 410 mg/ Sodium (Chloride) 50 mls @ 100 mls/hr IVPB DAILY [facility] Last Admin: 05/07/18 11:36 Dose: 100 mls/hr Latanoprost (Xalatan 0.005% Eye Drops -) 1 drop OD [facility] Last Admin: 05/06/18 21:32 Dose: 1 drop Losartan Potassium (Cozaar -) 25 mg PO DAILY [facility] Last Admin: 05/07/18 09:04 Dose: 25 mg Megestrol Acetate (Megace Oral Suspension -) 800 mg PO DAILY [facility] Last Admin: 05/07/18 09:06 Dose: 800 mg Metoprolol Tartrate (Lopressor -) 25 mg PO BID [facility] Last Admin: 05/07/18 09:04 Dose: 25 mg Mycophenolate Mofetil (Cellcept -) 1,000 mg PO BID [facility] Last Admin: 05/07/18 09:10 Dose: 1,000 mg Nifedipine (Procardia Xl -) 60 mg PO DAILY [facility] Last Admin: 05/07/18 09:06 Dose: 60 mg Paricalcitol (Zemplar -) 1 mcg PO DAILY [facility] Last Admin: 05/07/18 09:14 Dose: 1 mcg Raltegravir (Isentress -) 400 mg PO BID [facility] Last Admin: 05/07/18 09:12 Dose: 400 mg Tacrolimus (Prograf) 4 mg PO HS [facility] Last Admin: 05/06/18 21:26 Dose: 4 mg Tacrolimus (Prograf) 5 mg PO DAILY [facility] Last Admin: 05/07/18 09:13 Dose: 5 mg - Objective Vital Signs: Vital Signs Temperature 99.1 F 05/07/18 15:32 Pulse Rate 78 05/07/18 15:32 Respiratory Rate 18 05/07/18 15:32 Blood Pressure 125/59 L 05/07/18 15:32 O2 Sat by Pulse Oximetry (%) 98 05/05/18 09:00 Constitutional: Yes: Calm Eyes: Yes: Conjunctiva Clear HENT: Yes: Atraumatic Cardiovascular: Yes: S1, S2 Respiratory: Yes: CTA Bilaterally Gastrointestinal: Yes: Soft Genitourinary: Yes: Other (graft soft and non tender) Musculoskeletal: Yes: WNL Edema: No Integumentary: Yes: WNL Neurological: Yes: Oriented Psychiatric: Yes: Oriented Labs: CBC, BMP 05/05/18 06:26 05/05/18 06:26 INR, PTT INR 1.27 (0.83-1.09) H 05/02/18 07:40 Problem List - Problems (1) CKD (chronic kidney disease) Code(s): N18.9 - CHRONIC KIDNEY DISEASE, UNSPECIFIED Assessment/Plan Current Medications Generic Name Dose Route Start Last Admin Trade Name Freq PRN Reason Stop Dose Admin Acetaminophen 650 mg 05/02/18 15:39 05/07/18 10:03 Tylenol - PO 650 mg Q6H PRN Administration PAIN 4-6 Allopurinol 100 mg 05/03/18 10:00 05/07/18 09:04 Zyloprim - PO 100 mg DAILY [facility] Administration Atorvastatin Calcium 80 mg 05/02/18 22:00 05/06/18 21:25 Lipitor - PO 80 mg HS [facility] Administration Brimonidine Tartrate 1 drop 05/02/18 22:00 05/07/18 09:07 Alphagan 0.2% - OD 1 drop BID [facility] Administration Cinacalcet 60 mg 05/03/18 10:00 05/07/18 09:14 Sensipar - PO 60 mg DAILY [facility] Administration Docusate Sodium 100 mg 05/02/18 22:00 05/07/18 09:06 Colace - PO 100 mg BID [facility] Administration Ezetimibe 10 mg 05/03/18 10:00 05/07/18 09:06 Zetia - PO 10 mg DAILY [facility] Administration Daptomycin 410 mg/ Sodium 50 mls @ 100 mls/hr 05/06/18 16:00 05/07/18 11:36 Chloride IVPB 100 mls/hr DAILY [facility] Administration Latanoprost 1 drop 05/02/18 22:00 05/06/18 21:32 Xalatan 0.005% Eye Drops - OD 1 drop HS [facility] Administration Losartan Potassium 25 mg 05/03/18 10:00 05/07/18 09:04 Cozaar - PO 25 mg DAILY [facility] Administration Megestrol Acetate 800 mg 05/03/18 10:00 05/07/18 09:06 Megace Oral Suspension - PO 800 mg DAILY [facility] Administration Metoprolol Tartrate 25 mg 05/02/18 22:00 05/07/18 09:04 Lopressor - PO 25 mg BID [facility] Administration Mycophenolate Mofetil 1,000 mg 05/02/18 22:00 05/07/18 09:10 Cellcept - PO 1,000 mg BID [facility] Administration Nifedipine 60 mg 05/03/18 10:00 05/07/18 09:06 Procardia Xl - PO 60 mg DAILY [facility] Administration Paricalcitol 1 mcg 05/03/18 10:00 05/07/18 09:14 Zemplar - PO 1 mcg DAILY [facility] Administration Raltegravir 400 mg 05/02/18 22:00 05/07/18 09:12 Isentress - PO 400 mg BID [facility] Administration Tacrolimus 4 mg 05/06/18 22:00 05/06/18 21:26 Prograf PO 4 mg HS [facility] Administration Tacrolimus 5 mg 05/07/18 10:00 05/07/18 09:13 Prograf PO 5 mg DAILY [facility] Administration Impression 1. CKD 2. kidney transplant 3. HIV 4. HTN 5. DM 6. cad 7. HLD 8. 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
--- NOTE | 2018-05-07 16:54 | PN ---
Progress Note (short form) - Note Progress Note: POD#5 No pain. vss, Tmax 99.1 +clean dry dressing, wbc=3.2, normal post op pvd Betadine dressing change daily. IVABX as per ID. Will follow. Patient may be dc when medicine and ID agree.
[2018-05-07] MEDS: ATORVASTATIN CA 80 MG TABLET (FP) PO SCH (21:47)
[2018-05-07] MEDS: TACROLIMUS ANHYDROUS 1 MG CAPSULE PO SCH (21:47)
[2018-05-07] MEDS: LATANOPROST 0.005% OPHTH SOLN 2.5ML BOTTLE OD SCH (21:51)
--- NOTE | 2018-05-07 22:27 | PN ---
Progress Note, Physician - Current Medication List Current Medications: Active Medications Acetaminophen (Tylenol -) 650 mg PO Q6H PRN PRN Reason: PAIN 4-6 Last Admin: 05/07/18 10:03 Dose: 650 mg Allopurinol (Zyloprim -) 100 mg PO DAILY [facility] Last Admin: 05/07/18 09:04 Dose: 100 mg Atorvastatin Calcium (Lipitor -) 80 mg PO HS [facility] Last Admin: 05/07/18 21:47 Dose: 80 mg Brimonidine Tartrate (Alphagan 0.2% -) 1 drop OD BID [facility] Last Admin: 05/07/18 21:51 Dose: 1 drop Cinacalcet (Sensipar -) 60 mg PO DAILY [facility] Last Admin: 05/07/18 09:14 Dose: 60 mg Docusate Sodium (Colace -) 100 mg PO BID [facility] Last Admin: 05/07/18 21:49 Dose: 100 mg Ezetimibe (Zetia -) 10 mg PO DAILY [facility] Last Admin: 05/07/18 09:06 Dose: 10 mg Daptomycin 410 mg/ Sodium (Chloride) 50 mls @ 100 mls/hr IVPB DAILY [facility] Last Admin: 05/07/18 11:36 Dose: 100 mls/hr Latanoprost (Xalatan 0.005% Eye Drops -) 1 drop OD [facility] Last Admin: 05/07/18 21:51 Dose: 1 drop Losartan Potassium (Cozaar -) 25 mg PO DAILY [facility] Last Admin: 05/07/18 09:04 Dose: 25 mg Megestrol Acetate (Megace Oral Suspension -) 800 mg PO DAILY [facility] Last Admin: 05/07/18 09:06 Dose: 800 mg Metoprolol Tartrate (Lopressor -) 25 mg PO BID [facility] Last Admin: 05/07/18 21:51 Dose: 25 mg Mycophenolate Mofetil (Cellcept -) 1,000 mg PO BID [facility] Last Admin: 05/07/18 21:48 Dose: 1,000 mg Nifedipine (Procardia Xl -) 60 mg PO DAILY [facility] Last Admin: 05/07/18 09:06 Dose: 60 mg Paricalcitol (Zemplar -) 1 mcg PO DAILY [facility] Last Admin: 05/07/18 09:14 Dose: 1 mcg Raltegravir (Isentress -) 400 mg PO BID [facility] Last Admin: 05/07/18 21:48 Dose: 400 mg Tacrolimus (Prograf) 4 mg PO HS [facility] Last Admin: 05/07/18 21:47 Dose: 4 mg Tacrolimus (Prograf) 5 mg PO DAILY [facility] Last Admin: 05/07/18 09:13 Dose: 5 mg - Objective Vital Signs: Vital Signs Temperature 99.1 F 05/07/18 15:32 Pulse Rate 78 05/07/18 15:32 Respiratory Rate 18 05/07/18 15:32 Blood Pressure 125/59 L 05/07/18 15:32 O2 Sat by Pulse Oximetry (%) 98 05/05/18 09:00 Labs: CBC, BMP 05/05/18 06:26 05/05/18 06:26 INR, PTT INR 1.27 (0.83-1.09) H 05/02/18 07:40 Problem List - Problems (1) Diabetic foot ulcer Code(s): E11.621 - TYPE 2 DIABETES MELLITUS WITH FOOT ULCER; L97.509 - NON- PRESSURE CHRONIC ULCER OTH PRT UNSP FOOT W UNSP SEVERITY (2) Diabetes Code(s): E11.9 - TYPE 2 DIABETES MELLITUS WITHOUT COMPLICATIONS (3) CKD (chronic kidney disease) Code(s): N18.9 - CHRONIC KIDNEY DISEASE, UNSPECIFIED (4) HIV (human immunodeficiency virus infection) Code(s): B20 - HUMAN IMMUNODEFICIENCY VIRUS [HIV] DISEASE (5) HTN (hypertension) Code(s): I10 - ESSENTIAL (PRIMARY) HYPERTENSION (6) Renal transplant recipient Code(s): Z94.0 - KIDNEY TRANSPLANT STATUS (7) HLD (hyperlipidemia) Code(s): E78.5 - HYPERLIPIDEMIA, UNSPECIFIED
[2018-05-08 08:18] LABS: ANION GAP 9 MMOL/L (8-16); BLOOD UREA NITROGEN 22 mg/dL (7-18); CALCIUM 8.4 mg/dL (8.5-10.1); CHLORIDE 112 mmol/L (98-107); CO2 20 mmol/L (21-32); CREATININE 1.7 mg/dL (0.55-1.3); GLUCOSE,RANDOM 82 mg/dL (74-106); POTASSIUM 4.5 mmol/L (3.5-5.1); SODIUM 141 mmol/L (136-145)
[2018-05-08] MEDS ORDERED: PT OWN MED DRAWER 7, Y5N ONE ×3 (09:26→20:40)
[2018-05-08] MEDS: EZETIMIBE 10 MG TABLET (FP) PO SCH (09:30)
[2018-05-08] MEDS: DOCUSATE SODIUM 100 MG CAPSULE (FP) PO SCH ×2 (09:30→21:08)
[2018-05-08] MEDS: METOPROLOL TARTRATE 50 MG TABLET (FP) PO SCH ×2 (09:30→21:08)
[2018-05-08] MEDS: NIFEdipine E.R 60 MG TABLET (UD) PO SCH (09:31)
[2018-05-08] MEDS: MEGESTROL ACETATE 400 MG/10 ML UNIT DOSE CUP PO SCH (09:31)
[2018-05-08] MEDS: MYCOPHENOLATE MOFETIL 500 MG TABLET PO SCH ×2 (09:33→21:07)
[2018-05-08] MEDS: EMTRICITABINE/TENOFOV ALAFENAM (DESCOVY) TABLET PO SCH (09:34)
[2018-05-08] MEDS: RALTEGRAVIR POTASSIUM 400 MG TAB PO SCH ×2 (09:34→21:08)
[2018-05-08] MEDS: TACROLIMUS ANHYDROUS 5 MG CAPSULE PO SCH (09:35)
[2018-05-08] MEDS: CINACALCET HCL 30 MG TAB (FP) PO SCH (09:36)
[2018-05-08] MEDS: PARICALCITOL 1 MCG CAP PO SCH (09:36)
[2018-05-08] MEDS: ALLOPURINOL 100 MG TABLET (FP) PO SCH (09:37)
[2018-05-08] MEDS: LOSARTAN POTASSIUM 25 MG TABLET PO SCH (09:39)
[2018-05-08] MEDS: BRIMONIDINE TARTRATE 0.2% OPHTHALMIC 5 ML BOTTLE OD SCH ×2 (09:42→21:12)
[2018-05-08] MEDS: ACETAMINOPHEN 325 MG TABLET (FP) PO PRN ×2 (10:31→16:38)
[2018-05-08] MEDS: DAPTOMYCIN IVPB SCH (11:19)
[2018-05-08] MEDS: SODIUM CHLORIDE IVPB SCH (11:19)
--- NOTE | 2018-05-08 13:52 | PN ---
Progress Note, Physician History of Present Illness: No new events. Pt without specific complaints. Remains afebrile/stable. - Current Medication List Current Medications: Active Medications Acetaminophen (Tylenol -) 650 mg PO Q6H PRN PRN Reason: PAIN 4-6 Last Admin: 05/08/18 10:31 Dose: 650 mg Allopurinol (Zyloprim -) 100 mg PO DAILY [facility] Last Admin: 05/08/18 09:37 Dose: 100 mg Atorvastatin Calcium (Lipitor -) 80 mg PO HS [facility] Last Admin: 05/07/18 21:47 Dose: 80 mg Brimonidine Tartrate (Alphagan 0.2% -) 1 drop OD BID [facility] Last Admin: 05/08/18 09:42 Dose: 1 drop Cinacalcet (Sensipar -) 60 mg PO DAILY [facility] Last Admin: 05/08/18 09:36 Dose: 60 mg Docusate Sodium (Colace -) 100 mg PO BID [facility] Last Admin: 05/08/18 09:30 Dose: 100 mg Ezetimibe (Zetia -) 10 mg PO DAILY [facility] Last Admin: 05/08/18 09:30 Dose: 10 mg Daptomycin 410 mg/ Sodium (Chloride) 50 mls @ 100 mls/hr IVPB DAILY [facility] Last Admin: 05/08/18 11:19 Dose: 100 mls/hr Latanoprost (Xalatan 0.005% Eye Drops -) 1 drop OD HS [facility] Last Admin: 05/07/18 21:51 Dose: 1 drop Losartan Potassium (Cozaar -) 25 mg PO DAILY [facility] Last Admin: 05/08/18 09:39 Dose: 25 mg Megestrol Acetate (Megace Oral Suspension -) 800 mg PO DAILY [facility] Last Admin: 05/08/18 09:31 Dose: 800 mg Metoprolol Tartrate (Lopressor -) 25 mg PO BID [facility] Last Admin: 05/08/18 09:30 Dose: 25 mg Mycophenolate Mofetil (Cellcept -) 1,000 mg PO BID [facility] Last Admin: 05/08/18 09:33 Dose: 1,000 mg Nifedipine (Procardia Xl -) 60 mg PO DAILY [facility] Last Admin: 05/08/18 09:31 Dose: 60 mg Paricalcitol (Zemplar -) 1 mcg PO DAILY [facility] Last Admin: 05/08/18 09:36 Dose: 1 mcg Raltegravir (Isentress -) 400 mg PO BID [facility] Last Admin: 05/08/18 09:34 Dose: 400 mg Tacrolimus (Prograf) 4 mg PO HS [facility] Last Admin: 05/07/18 21:47 Dose: 4 mg Tacrolimus (Prograf) 5 mg PO DAILY [facility] Last Admin: 05/08/18 09:35 Dose: 5 mg - Objective Vital Signs: Vital Signs Temperature 98.2 F 05/08/18 06:56 Pulse Rate 75 05/08/18 06:56 Respiratory Rate 20 05/08/18 06:56 Blood Pressure 185/82 H 05/08/18 06:56 O2 Sat by Pulse Oximetry (%) 97 05/08/18 09:00 Constitutional: Yes: No Distress, Calm Cardiovascular: Yes: Regular Rate and Rhythm Respiratory: Yes: Regular Gastrointestinal: Yes: Normal Bowel Sounds, Soft Wound/Incision: Yes: Other (Rt foot dressing intact, no erythema, warmth, tenderness) Labs: CBC, BMP 05/05/18 06:26 05/08/18 06:10 INR, PTT INR 1.27 (0.83-1.09) H 05/02/18 07:40 Microbiology 05/04/18 01:55 Blood - Peripheral Venous Blood Culture - Preliminary NO GROWTH OBTAINED AFTER 96 HOURS, INCUBATION TO CONTINUE FOR 1 DAYS. 05/02/18 10:00 Bone Gram Stain - Final 05/02/18 10:00 Bone Tissue Culture - Final Staphylococcus Aureus 05/02/18 10:00 Bone Anaerobic Culture - Final NO ANAEROBES WERE ISOLATED 05/02/18 10:00 Toe - Right Hallux Gram Stain - Final 05/02/18 10:00 Toe - Right Hallux Wound Culture - Final Staphylococcus Aureus Corynebacterium Striatum Vr Ec Faecalis 04/27/18 17:50 Blood - Peripheral Venous Blood Culture - Final NO GROWTH AFTER 5 DAYS INCUBATION 04/27/18 17:50 Blood - Peripheral Venous Blood Culture - Final NO GROWTH AFTER 5 DAYS INCUBATION 04/27/18 17:58 Toe - Right Hallux Gram Stain - Final 04/27/18 17:58 Toe - Right Hallux Wound Culture - Final Staphylococcus Aureus Vr Ec Faecalis Diphtheroid/Corynebacterium Problem List - Problems (1) CKD (chronic kidney disease) Code(s): N18.9 - CHRONIC KIDNEY DISEASE, UNSPECIFIED (2) Type 2 diabetes mellitus with diabetic peripheral angiopathy with gangrene Code(s): E11.52 - TYPE 2 DIABETES W DIABETIC PERIPHERAL ANGIOPATHY W GANGRENE Qualifiers: Diabetes mellitus termination clerk insulin use: unspecified termination clerk insulin use status Qualified Code(s): E11.52 - Type 2 diabetes mellitus with diabetic peripheral angiopathy with gangrene Assessment/Plan Rt toe gangrene s/p amputation/OM HIV VERÓNICA on CKD s/p renal transplant DM AFIB Gout -- continue Daptomycin -- check cpk, esr, crp weekly while on antibiotic, cpk normal at this time -- continue ARVs -- Podiatry following -- continue wound care
--- NOTE | 2018-05-08 18:31 | PN ---
Progress Note, Physician History of Present Illness: Pt seen and examined at bedside. He has no complaints. - Current Medication List Current Medications: Active Medications Acetaminophen (Tylenol -) 650 mg PO Q6H PRN PRN Reason: PAIN 4-6 Last Admin: 05/08/18 16:38 Dose: 650 mg Allopurinol (Zyloprim -) 100 mg PO DAILY [facility] Last Admin: 05/08/18 09:37 Dose: 100 mg Atorvastatin Calcium (Lipitor -) 80 mg PO HS [facility] Last Admin: 05/07/18 21:47 Dose: 80 mg Brimonidine Tartrate (Alphagan 0.2% -) 1 drop OD BID [facility] Last Admin: 05/08/18 09:42 Dose: 1 drop Cinacalcet (Sensipar -) 60 mg PO DAILY [facility] Last Admin: 05/08/18 09:36 Dose: 60 mg Docusate Sodium (Colace -) 100 mg PO BID [facility] Last Admin: 05/08/18 09:30 Dose: 100 mg Ezetimibe (Zetia -) 10 mg PO DAILY [facility] Last Admin: 05/08/18 09:30 Dose: 10 mg Daptomycin 410 mg/ Sodium (Chloride) 50 mls @ 100 mls/hr IVPB DAILY [facility] Last Admin: 05/08/18 11:19 Dose: 100 mls/hr Latanoprost (Xalatan 0.005% Eye Drops -) 1 drop OD HS [facility] Last Admin: 05/07/18 21:51 Dose: 1 drop Losartan Potassium (Cozaar -) 25 mg PO DAILY [facility] Last Admin: 05/08/18 09:39 Dose: 25 mg Megestrol Acetate (Megace Oral Suspension -) 800 mg PO DAILY [facility] Last Admin: 05/08/18 09:31 Dose: 800 mg Metoprolol Tartrate (Lopressor -) 25 mg PO BID [facility] Last Admin: 05/08/18 09:30 Dose: 25 mg Mycophenolate Mofetil (Cellcept -) 1,000 mg PO BID [facility] Last Admin: 05/08/18 09:33 Dose: 1,000 mg Nifedipine (Procardia Xl -) 60 mg PO DAILY [facility] Last Admin: 05/08/18 09:31 Dose: 60 mg Paricalcitol (Zemplar -) 1 mcg PO DAILY [facility] Last Admin: 05/08/18 09:36 Dose: 1 mcg Raltegravir (Isentress -) 400 mg PO BID [facility] Last Admin: 05/08/18 09:34 Dose: 400 mg Tacrolimus (Prograf) 4 mg PO HS [facility] Last Admin: 05/07/18 21:47 Dose: 4 mg Tacrolimus (Prograf) 5 mg PO DAILY [facility] Last Admin: 05/08/18 09:35 Dose: 5 mg - Objective Vital Signs: Vital Signs Temperature 99.3 F 05/08/18 09:00 Pulse Rate 78 05/08/18 09:00 Respiratory Rate 20 05/08/18 09:00 Blood Pressure 152/78 05/08/18 09:00 O2 Sat by Pulse Oximetry (%) 97 05/08/18 09:00 Constitutional: Yes: Calm Eyes: Yes: Conjunctiva Clear HENT: Yes: Atraumatic Neck: Yes: Supple Cardiovascular: Yes: S1, S2 Respiratory: Yes: CTA Bilaterally Gastrointestinal: Yes: Soft Genitourinary: Yes: Other (graft is soft and non tender) Musculoskeletal: Yes: WNL Edema: No Neurological: Yes: Oriented Psychiatric: Yes: Oriented Labs: CBC, BMP 05/05/18 06:26 05/08/18 06:10 INR, PTT INR 1.27 (0.83-1.09) H 05/02/18 07:40 Problem List - Problems (1) CKD (chronic kidney disease) Code(s): N18.9 - CHRONIC KIDNEY DISEASE, UNSPECIFIED Assessment/Plan Current Medications Generic Name Dose Route Start Last Admin Trade Name Freq PRN Reason Stop Dose Admin Acetaminophen 650 mg 05/02/18 15:39 05/08/18 16:38 Tylenol - PO 650 mg Q6H PRN Administration PAIN 4-6 Allopurinol 100 mg 05/03/18 10:00 05/08/18 09:37 Zyloprim - PO 100 mg DAILY [facility] Administration Atorvastatin Calcium 80 mg 05/02/18 22:00 05/07/18 21:47 Lipitor - PO 80 mg HS [facility] Administration Brimonidine Tartrate 1 drop 05/02/18 22:00 05/08/18 09:42 Alphagan 0.2% - OD 1 drop BID [facility] Administration Cinacalcet 60 mg 05/03/18 10:00 05/08/18 09:36 Sensipar - PO 60 mg DAILY [facility] Administration Docusate Sodium 100 mg 05/02/18 22:00 03/03/19 09:30 Colace - PO 100 mg BID [facility] Administration Ezetimibe 10 mg 05/03/18 10:00 05/08/18 09:30 Zetia - PO 10 mg DAILY [facility] Administration Daptomycin 410 mg/ Sodium 50 mls @ 100 mls/hr 05/06/18 16:00 05/08/18 11:19 Chloride IVPB 100 mls/hr DAILY [facility] Administration Latanoprost 1 drop 05/02/18 22:00 05/07/18 21:51 Xalatan 0.005% Eye Drops - OD 1 drop HS [facility] Administration Losartan Potassium 25 mg 05/03/18 10:00 05/08/18 09:39 Cozaar - PO 25 mg DAILY [facility] Administration Megestrol Acetate 800 mg 05/03/18 10:00 05/08/18 09:31 Megace Oral Suspension - PO 800 mg DAILY [facility] Administration Metoprolol Tartrate 25 mg 05/02/18 22:00 05/08/18 09:30 Lopressor - PO 25 mg BID [facility] Administration Mycophenolate Mofetil 1,000 mg 05/02/18 22:00 05/08/18 09:33 Cellcept - PO 1,000 mg BID [facility] Administration Nifedipine 60 mg 05/03/18 10:00 05/08/18 09:31 Procardia Xl - PO 60 mg DAILY [facility] Administration Paricalcitol 1 mcg 05/03/18 10:00 05/08/18 09:36 Zemplar - PO 1 mcg DAILY [facility] Administration Raltegravir 400 mg 05/02/18 22:00 05/08/18 09:34 Isentress - PO 400 mg BID [facility] Administration Tacrolimus 4 mg 05/06/18 22:00 05/07/18 21:47 Prograf PO 4 mg HS [facility] Administration Tacrolimus 5 mg 05/07/18 10:00 05/08/18 09:35 Prograf PO 5 mg DAILY [facility] Administration Laboratory Tests 05/08/18 06:10 Creatine Kinase 105 Impression 1. CKD 2. kidney transplant 3. HIV 4. HTN 5. DM 6. cad 7. HLD 8. small hypodense mass in kidney Plan - repeat labs in am - gentle hydration - monitor cpk level - cont prograf, dose adjusted yesterday - abx per ID - will need follow up with his transplant research scholar - renal lesion will be followed as outpt at his transplant center in [place], Dr Zamarripa aware - wound care
[2018-05-08] MEDS ORDERED: SODIUM CHLORIDE 0.45% 1,000 ML IV SCH (18:45)
[2018-05-08] MEDS: TACROLIMUS ANHYDROUS 1 MG CAPSULE PO SCH (21:08)
[2018-05-08] MEDS: ATORVASTATIN CA 80 MG TABLET (FP) PO SCH (21:08)
[2018-05-08] MEDS: LATANOPROST 0.005% OPHTH SOLN 2.5ML BOTTLE OD SCH (21:12)
--- NOTE | 2018-05-08 23:37 | PN ---
Progress Note, Physician - Current Medication List Current Medications: Active Medications Acetaminophen (Tylenol -) 650 mg PO Q6H PRN PRN Reason: PAIN 4-6 Last Admin: 05/08/18 16:38 Dose: 650 mg Allopurinol (Zyloprim -) 100 mg PO DAILY [facility] Last Admin: 05/08/18 09:37 Dose: 100 mg Atorvastatin Calcium (Lipitor -) 80 mg PO HS [facility] Last Admin: 05/08/18 21:08 Dose: 80 mg Brimonidine Tartrate (Alphagan 0.2% -) 1 drop OD BID [facility] Last Admin: 05/08/18 21:12 Dose: 1 drop Cinacalcet (Sensipar -) 60 mg PO DAILY [facility] Last Admin: 05/08/18 09:36 Dose: 60 mg Docusate Sodium (Colace -) 100 mg PO BID [facility] Last Admin: 05/08/18 21:08 Dose: 100 mg Ezetimibe (Zetia -) 10 mg PO DAILY [facility] Last Admin: 05/08/18 09:30 Dose: 10 mg Daptomycin 410 mg/ Sodium (Chloride) 50 mls @ 100 mls/hr IVPB DAILY [facility] Last Admin: 05/08/18 11:19 Dose: 100 mls/hr Sodium Chloride (1/2 Normal Saline) 1,000 mls @ 42 mls/hr IV ASDIR [facility] Last Admin: 05/08/18 18:54 Dose: 42 mls/hr Latanoprost (Xalatan 0.005% Eye Drops -) 1 drop OD HS [facility] Last Admin: 05/08/18 21:12 Dose: 1 drop Losartan Potassium (Cozaar -) 25 mg PO DAILY [facility] Last Admin: 05/08/18 09:39 Dose: 25 mg Megestrol Acetate (Megace Oral Suspension -) 800 mg PO DAILY [facility] Last Admin: 05/08/18 09:31 Dose: 800 mg Metoprolol Tartrate (Lopressor -) 25 mg PO BID [facility] Last Admin: 05/08/18 21:08 Dose: 25 mg Mycophenolate Mofetil (Cellcept -) 1,000 mg PO BID [facility] Last Admin: 05/08/18 21:07 Dose: 1,000 mg Nifedipine (Procardia Xl -) 60 mg PO DAILY [facility] Last Admin: 05/08/18 09:31 Dose: 60 mg Paricalcitol (Zemplar -) 1 mcg PO DAILY [facility] Last Admin: 05/08/18 09:36 Dose: 1 mcg Raltegravir (Isentress -) 400 mg PO BID [facility] Last Admin: 05/08/18 21:08 Dose: 400 mg Tacrolimus (Prograf) 4 mg PO HS [facility] Last Admin: 05/08/18 21:08 Dose: 4 mg Tacrolimus (Prograf) 5 mg PO DAILY [facility] Last Admin: 05/08/18 09:35 Dose: 5 mg - Objective Vital Signs: Vital Signs Temperature 98.6 F 05/08/18 22:17 Pulse Rate 77 05/08/18 22:17 Respiratory Rate 20 05/08/18 22:17 Blood Pressure 146/75 05/08/18 22:17 O2 Sat by Pulse Oximetry (%) 97 05/08/18 21:00 Labs: CBC, BMP 05/05/18 06:26 05/08/18 06:10 INR, PTT INR 1.27 (0.83-1.09) H 05/02/18 07:40 Problem List - Problems (1) Diabetic foot ulcer Code(s): E11.621 - TYPE 2 DIABETES MELLITUS WITH FOOT ULCER; L97.509 - NON- PRESSURE CHRONIC ULCER OTH PRT UNSP FOOT W UNSP SEVERITY (2) Diabetes Code(s): E11.9 - TYPE 2 DIABETES MELLITUS WITHOUT COMPLICATIONS (3) CKD (chronic kidney disease) Code(s): N18.9 - CHRONIC KIDNEY DISEASE, UNSPECIFIED (4) HIV (human immunodeficiency virus infection) Code(s): B20 - HUMAN IMMUNODEFICIENCY VIRUS [HIV] DISEASE (5) HTN (hypertension) Code(s): I10 - ESSENTIAL (PRIMARY) HYPERTENSION (6) Renal transplant recipient Code(s): Z94.0 - KIDNEY TRANSPLANT STATUS (7) HLD (hyperlipidemia) Code(s): E78.5 - HYPERLIPIDEMIA, UNSPECIFIED
[2018-05-09 07:59] LABS: ANION GAP 10 MMOL/L (8-16); BLOOD UREA NITROGEN 22 mg/dL (7-18); CALCIUM 8.6 mg/dL (8.5-10.1); CHLORIDE 111 mmol/L (98-107); CO2 20 mmol/L (21-32); CREATININE 1.4 mg/dL (0.55-1.3); GLUCOSE,RANDOM 81 mg/dL (74-106); POTASSIUM 4.6 mmol/L (3.5-5.1); SODIUM 140 mmol/L (136-145)
[2018-05-09] MEDS ORDERED: PT OWN MED DRAWER 7, Y5N ONE ×2 (10:16→21:34)
[2018-05-09] MEDS: DOCUSATE SODIUM 100 MG CAPSULE (FP) PO SCH ×2 (10:24→21:53)
[2018-05-09] MEDS: LOSARTAN POTASSIUM 25 MG TABLET PO SCH (10:24)
[2018-05-09] MEDS: EZETIMIBE 10 MG TABLET (FP) PO SCH (10:24)
[2018-05-09] MEDS: METOPROLOL TARTRATE 50 MG TABLET (FP) PO SCH ×2 (10:24→21:52)
[2018-05-09] MEDS: MEGESTROL ACETATE 400 MG/10 ML UNIT DOSE CUP PO SCH (10:25)
[2018-05-09] MEDS: TACROLIMUS ANHYDROUS 5 MG CAPSULE PO SCH (10:27)
[2018-05-09] MEDS: RALTEGRAVIR POTASSIUM 400 MG TAB PO SCH ×2 (10:27→21:53)
[2018-05-09] MEDS: PARICALCITOL 1 MCG CAP PO SCH (10:28)
[2018-05-09] MEDS: MYCOPHENOLATE MOFETIL 500 MG TABLET PO SCH ×2 (10:28→21:54)
[2018-05-09] MEDS: CINACALCET HCL 30 MG TAB (FP) PO SCH (10:28)
[2018-05-09] MEDS: EMTRICITABINE/TENOFOV ALAFENAM (DESCOVY) TABLET PO SCH (10:28)
[2018-05-09] MEDS: ALLOPURINOL 100 MG TABLET (FP) PO SCH (10:29)
[2018-05-09] MEDS: ACETAMINOPHEN 325 MG TABLET (FP) PO PRN ×2 (10:30→21:52)
[2018-05-09] MEDS: BRIMONIDINE TARTRATE 0.2% OPHTHALMIC 5 ML BOTTLE OD SCH ×2 (10:31→21:53)
[2018-05-09] MEDS: NIFEdipine E.R 60 MG TABLET (UD) PO SCH (10:36)
[2018-05-09] MEDS: SODIUM CHLORIDE IVPB SCH (12:31)
[2018-05-09] MEDS: DAPTOMYCIN IVPB SCH (12:31)
--- NOTE | 2018-05-09 13:14 | PN ---
Progress Note, Physician History of Present Illness: patient stable no new issues - Current Medication List Current Medications: Active Medications Acetaminophen (Tylenol -) 650 mg PO Q6H PRN PRN Reason: PAIN 4-6 Last Admin: 05/09/18 10:30 Dose: 650 mg Allopurinol (Zyloprim -) 100 mg PO DAILY [facility] Last Admin: 05/09/18 10:29 Dose: 100 mg Atorvastatin Calcium (Lipitor -) 80 mg PO HS [facility] Last Admin: 05/08/18 21:08 Dose: 80 mg Brimonidine Tartrate (Alphagan 0.2% -) 1 drop OD BID [facility] Last Admin: 05/09/18 10:31 Dose: 1 drop Cinacalcet (Sensipar -) 60 mg PO DAILY [facility] Last Admin: 05/09/18 10:28 Dose: 60 mg Docusate Sodium (Colace -) 100 mg PO BID [facility] Last Admin: 05/09/18 10:24 Dose: 100 mg Ezetimibe (Zetia -) 10 mg PO DAILY [facility] Last Admin: 05/09/18 10:24 Dose: 10 mg Daptomycin 410 mg/ Sodium (Chloride) 50 mls @ 100 mls/hr IVPB DAILY [facility] Last Admin: 05/09/18 12:31 Dose: 100 mls/hr Sodium Chloride (1/2 Normal Saline) 1,000 mls @ 42 mls/hr IV ASDIR [facility] Last Admin: 05/08/18 18:54 Dose: 42 mls/hr Latanoprost (Xalatan 0.005% Eye Drops -) 1 drop OD HS [facility] Last Admin: 05/08/18 21:12 Dose: 1 drop Losartan Potassium (Cozaar -) 25 mg PO DAILY [facility] Last Admin: 05/09/18 10:24 Dose: 25 mg Megestrol Acetate (Megace Oral Suspension -) 800 mg PO DAILY [facility] Last Admin: 05/09/18 10:25 Dose: 800 mg Metoprolol Tartrate (Lopressor -) 25 mg PO BID [facility] Last Admin: 05/09/18 10:24 Dose: 25 mg Mycophenolate Mofetil (Cellcept -) 1,000 mg PO BID [facility] Last Admin: 05/09/18 10:28 Dose: 1,000 mg Nifedipine (Procardia Xl -) 60 mg PO DAILY [facility] Last Admin: 03/04/19 10:36 Dose: 60 mg Paricalcitol (Zemplar -) 1 mcg PO DAILY [facility] Last Admin: 05/09/18 10:28 Dose: 1 mcg Raltegravir (Isentress -) 400 mg PO BID [facility] Last Admin: 05/09/18 10:27 Dose: 400 mg Tacrolimus (Prograf) 4 mg PO HS [facility] Last Admin: 05/08/18 21:08 Dose: 4 mg Tacrolimus (Prograf) 5 mg PO DAILY [facility] Last Admin: 05/09/18 10:27 Dose: 5 mg - Objective Vital Signs: Vital Signs Temperature 98.2 F 05/09/18 06:46 Pulse Rate 75 05/09/18 12:49 Respiratory Rate 20 05/09/18 12:49 Blood Pressure 148/71 05/09/18 12:49 O2 Sat by Pulse Oximetry (%) 97 05/08/18 21:00 Constitutional: Yes: No Distress, Calm Cardiovascular: Yes: Regular Rate and Rhythm Respiratory: Yes: Regular, CTA Bilaterally Gastrointestinal: Yes: Normal Bowel Sounds, Soft Musculoskeletal: Yes: WNL Extremities: Yes: WNL Neurological: Yes: Alert, Oriented Psychiatric: Yes: Alert, Oriented Labs: CBC, BMP 05/05/18 06:26 05/09/18 06:00 INR, PTT INR 1.27 (0.83-1.09) H 05/02/18 07:40 Assessment/Plan CKD kidney tranplant HIV HTN . DM cad HLD wound infection vre plan new cx noted continue abx as planned rest as per the team wound care
--- NOTE | 2018-05-09 13:50 | PN ---
Progress Note (short form) - Note Progress Note: FUV right big toe. vss, Tmax 99.2 +sutures intact, -drainage, -mal odor, -cellulitis, no clinical signs of acute infection normal post op Continue betadine dressing changes. Will follow till DC.
--- NOTE | 2018-05-09 16:52 | PN ---
Progress Note, Physician History of Present Illness: Pt seen and examined at bedside. He is awake and alert. He denies fevers or chills. - Current Medication List Current Medications: Active Medications Acetaminophen (Tylenol -) 650 mg PO Q6H PRN PRN Reason: PAIN 4-6 Last Admin: 05/09/18 10:30 Dose: 650 mg Allopurinol (Zyloprim -) 100 mg PO DAILY [facility] Last Admin: 05/09/18 10:29 Dose: 100 mg Atorvastatin Calcium (Lipitor -) 80 mg PO HS [facility] Last Admin: 05/08/18 21:08 Dose: 80 mg Brimonidine Tartrate (Alphagan 0.2% -) 1 drop OD BID [facility] Last Admin: 05/09/18 10:31 Dose: 1 drop Cinacalcet (Sensipar -) 60 mg PO DAILY [facility] Last Admin: 05/09/18 10:28 Dose: 60 mg Docusate Sodium (Colace -) 100 mg PO BID [facility] Last Admin: 05/09/18 10:24 Dose: 100 mg Ezetimibe (Zetia -) 10 mg PO DAILY [facility] Last Admin: 05/09/18 10:24 Dose: 10 mg Daptomycin 410 mg/ Sodium (Chloride) 50 mls @ 100 mls/hr IVPB DAILY [facility] Last Admin: 05/09/18 12:31 Dose: 100 mls/hr Sodium Chloride (1/2 Normal Saline) 1,000 mls @ 42 mls/hr IV ASDIR [facility] Last Admin: 05/08/18 18:54 Dose: 42 mls/hr Latanoprost (Xalatan 0.005% Eye Drops -) 1 drop OD HS [facility] Last Admin: 05/08/18 21:12 Dose: 1 drop Losartan Potassium (Cozaar -) 25 mg PO DAILY [facility] Last Admin: 05/09/18 10:24 Dose: 25 mg Megestrol Acetate (Megace Oral Suspension -) 800 mg PO DAILY [facility] Last Admin: 05/09/18 10:25 Dose: 800 mg Metoprolol Tartrate (Lopressor -) 25 mg PO BID [facility] Last Admin: 05/09/18 10:24 Dose: 25 mg Mycophenolate Mofetil (Cellcept -) 1,000 mg PO BID [facility] Last Admin: 05/09/18 10:28 Dose: 1,000 mg Nifedipine (Procardia Xl -) 60 mg PO DAILY [facility] Last Admin: 05/09/18 10:36 Dose: 60 mg Paricalcitol (Zemplar -) 1 mcg PO DAILY [facility] Last Admin: 05/09/18 10:28 Dose: 1 mcg Raltegravir (Isentress -) 400 mg PO BID [facility] Last Admin: 05/09/18 10:27 Dose: 400 mg Tacrolimus (Prograf) 4 mg PO HS [facility] Last Admin: 05/08/18 21:08 Dose: 4 mg Tacrolimus (Prograf) 5 mg PO DAILY [facility] Last Admin: 05/09/18 10:27 Dose: 5 mg - Objective Vital Signs: Vital Signs Temperature 99.3 F 05/09/18 15:53 Pulse Rate 76 05/09/18 15:53 Respiratory Rate 18 05/09/18 15:53 Blood Pressure 126/53 L 05/09/18 15:53 O2 Sat by Pulse Oximetry (%) 97 05/09/18 09:00 Constitutional: Yes: Calm Eyes: Yes: Conjunctiva Clear HENT: Yes: Atraumatic Neck: Yes: Supple Cardiovascular: Yes: S1, S2 Respiratory: Yes: CTA Bilaterally Gastrointestinal: Yes: Normal Bowel Sounds, Soft Genitourinary: Yes: Other (graft soft and non tender) Musculoskeletal: Yes: WNL Edema: No Wound/Incision: Yes: Dressing Dry and Intact Neurological: Yes: Oriented Psychiatric: Yes: Oriented Labs: CBC, BMP 05/05/18 06:26 05/09/18 06:00 INR, PTT INR 1.27 (0.83-1.09) H 05/02/18 07:40 Problem List - Problems (1) CKD (chronic kidney disease) Code(s): N18.9 - CHRONIC KIDNEY DISEASE, UNSPECIFIED Assessment/Plan Current Medications Generic Name Dose Route Start Last Admin Trade Name Freq PRN Reason Stop Dose Admin Acetaminophen 650 mg 05/02/18 15:39 05/09/18 10:30 Tylenol - PO 650 mg Q6H PRN Administration PAIN 4-6 Allopurinol 100 mg 05/03/18 10:00 05/09/18 10:29 Zyloprim - PO 100 mg DAILY [facility] Administration Atorvastatin Calcium 80 mg 05/02/18 22:00 05/08/18 21:08 Lipitor - PO 80 mg HS [facility] Administration Brimonidine Tartrate 1 drop 05/02/18 22:00 03/04/19 10:31 Alphagan 0.2% - OD 1 drop BID [facility] Administration Cinacalcet 60 mg 05/03/18 10:00 05/09/18 10:28 Sensipar - PO 60 mg DAILY [facility] Administration Docusate Sodium 100 mg 05/02/18 22:00 05/09/18 10:24 Colace - PO 100 mg BID [facility] Administration Ezetimibe 10 mg 05/03/18 10:00 05/09/18 10:24 Zetia - PO 10 mg DAILY [facility] Administration Daptomycin 410 mg/ Sodium 50 mls @ 100 mls/hr 05/06/18 16:00 05/09/18 12:31 Chloride IVPB 100 mls/hr DAILY [facility] Administration Sodium Chloride 1,000 mls @ 42 mls/hr 05/08/18 18:45 05/08/18 18:54 1/2 Normal Saline IV 42 mls/hr ASDIR [facility] Administration Latanoprost 1 drop 05/02/18 22:00 05/08/18 21:12 Xalatan 0.005% Eye Drops - OD 1 drop HS [facility] Administration Losartan Potassium 25 mg 05/03/18 10:00 05/09/18 10:24 Cozaar - PO 25 mg DAILY [facility] Administration Megestrol Acetate 800 mg 05/03/18 10:00 05/09/18 10:25 Megace Oral Suspension - PO 800 mg DAILY [facility] Administration Metoprolol Tartrate 25 mg 05/02/18 22:00 05/09/18 10:24 Lopressor - PO 25 mg BID [facility] Administration Mycophenolate Mofetil 1,000 mg 05/02/18 22:00 05/09/18 10:28 Cellcept - PO 1,000 mg BID [facility] Administration Nifedipine 60 mg 05/03/18 10:00 05/09/18 10:36 Procardia Xl - PO 60 mg DAILY [facility] Administration Paricalcitol 1 mcg 05/03/18 10:00 05/09/18 10:28 Zemplar - PO 1 mcg DAILY [facility] Administration Raltegravir 400 mg 05/02/18 22:00 05/09/18 10:27 Isentress - PO 400 mg BID [facility] Administration Tacrolimus 4 mg 05/06/18 22:00 05/08/18 21:08 Prograf PO 4 mg HS [facility] Administration Tacrolimus 5 mg 05/07/18 10:00 05/09/18 10:27 Prograf PO 5 mg DAILY [facility] Administration Impression 1. CKD 2. kidney transplant 3. HIV 4. HTN 5. DM 6. cad 7. HLD 8. small hypodense mass in kidney Plan - can d/c fluids for now - monitor renal function - abx per ID - wound care - will need follow up with his transplant board runner - avoid nsaids
[2018-05-09] MEDS: ATORVASTATIN CA 80 MG TABLET (FP) PO SCH (21:52)
[2018-05-09] MEDS: LATANOPROST 0.005% OPHTH SOLN 2.5ML BOTTLE OD SCH (21:53)
[2018-05-09] MEDS: TACROLIMUS ANHYDROUS 1 MG CAPSULE PO SCH (21:54)
--- NOTE | 2018-05-09 22:03 | PN ---
Progress Note, Physician History of Present Illness: No new changes - Current Medication List Current Medications: Active Medications Acetaminophen (Tylenol -) 650 mg PO Q6H PRN PRN Reason: PAIN 4-6 Last Admin: 05/09/18 21:52 Dose: 650 mg Allopurinol (Zyloprim -) 100 mg PO DAILY [facility] Last Admin: 05/09/18 10:29 Dose: 100 mg Atorvastatin Calcium (Lipitor -) 80 mg PO HS [facility] Last Admin: 05/09/18 21:52 Dose: 80 mg Brimonidine Tartrate (Alphagan 0.2% -) 1 drop OD BID [facility] Last Admin: 05/09/18 21:53 Dose: 1 drop Cinacalcet (Sensipar -) 60 mg PO DAILY [facility] Last Admin: 05/09/18 10:28 Dose: 60 mg Docusate Sodium (Colace -) 100 mg PO BID [facility] Last Admin: 05/09/18 21:53 Dose: 100 mg Ezetimibe (Zetia -) 10 mg PO DAILY [facility] Last Admin: 05/09/18 10:24 Dose: 10 mg Daptomycin 410 mg/ Sodium (Chloride) 50 mls @ 100 mls/hr IVPB DAILY [facility] Last Admin: 05/09/18 12:31 Dose: 100 mls/hr Latanoprost (Xalatan 0.005% Eye Drops -) 1 drop OD [facility] Last Admin: 05/09/18 21:53 Dose: 1 drop Losartan Potassium (Cozaar -) 25 mg PO DAILY [facility] Last Admin: 05/09/18 10:24 Dose: 25 mg Megestrol Acetate (Megace Oral Suspension -) 800 mg PO DAILY [facility] Last Admin: 05/09/18 10:25 Dose: 800 mg Metoprolol Tartrate (Lopressor -) 25 mg PO BID [facility] Last Admin: 05/09/18 21:52 Dose: 25 mg Mycophenolate Mofetil (Cellcept -) 1,000 mg PO BID [facility] Last Admin: 05/09/18 21:54 Dose: 1,000 mg Nifedipine (Procardia Xl -) 60 mg PO DAILY [facility] Last Admin: 05/09/18 10:36 Dose: 60 mg Paricalcitol (Zemplar -) 1 mcg PO DAILY [facility] Last Admin: 05/09/18 10:28 Dose: 1 mcg Raltegravir (Isentress -) 400 mg PO BID [facility] Last Admin: 05/09/18 21:53 Dose: 400 mg Tacrolimus (Prograf) 4 mg PO HS [facility] Last Admin: 05/09/18 21:54 Dose: 4 mg Tacrolimus (Prograf) 5 mg PO DAILY [facility] Last Admin: 05/09/18 10:27 Dose: 5 mg - Objective Vital Signs: Vital Signs Temperature 99.2 F 05/09/18 20:19 Pulse Rate 76 05/09/18 20:19 Respiratory Rate 18 05/09/18 20:19 Blood Pressure 145/58 L 05/09/18 20:19 O2 Sat by Pulse Oximetry (%) 97 05/09/18 09:00 Constitutional: Yes: Well Nourished Neck: Yes: WNL, Supple Cardiovascular: Yes: WNL, Regular Rate and Rhythm Respiratory: Yes: WNL, Regular, CTA Bilaterally Gastrointestinal: Yes: WNL, Normal Bowel Sounds, Soft Extremities: Yes: Other (Rt foot w/ dressing) Labs: CBC, BMP 05/05/18 06:26 05/09/18 06:00 INR, PTT INR 1.27 (0.83-1.09) H 05/02/18 07:40 Problem List - Problems (1) Diabetic foot ulcer Assessment/Plan: S/P amputation Rt big toe Cont IV antibxs Wound culture (+) for staph aureus/Vr Ec faecalis Awaiting placement Code(s): E11.621 - TYPE 2 DIABETES MELLITUS WITH FOOT ULCER; L97.509 - NON- PRESSURE CHRONIC ULCER OTH PRT UNSP FOOT W UNSP SEVERITY (2) Diabetes Code(s): E11.9 - TYPE 2 DIABETES MELLITUS WITHOUT COMPLICATIONS (3) CKD (chronic kidney disease) Code(s): N18.9 - CHRONIC KIDNEY DISEASE, UNSPECIFIED (4) HIV (human immunodeficiency virus infection) Assessment/Plan: Cont antivirals Code(s): B20 - HUMAN IMMUNODEFICIENCY VIRUS [HIV] DISEASE (5) HTN (hypertension) Assessment/Plan: BP stable Cont losartan/metoprolol/nifedipine/ Code(s): I10 - ESSENTIAL (PRIMARY) HYPERTENSION (6) Renal transplant recipient Assessment/Plan: Cont prograf/sensipar/cellcept Code(s): Z94.0 - KIDNEY TRANSPLANT STATUS (7) HLD (hyperlipidemia) Assessment/Plan: Cont lipitor/zetia Code(s): E78.5 - HYPERLIPIDEMIA, UNSPECIFIED
[2018-05-10] MEDS ORDERED: PT OWN MED DRAWER 7, Y5N ONE (08:38)
[2018-05-10] MEDS: LOSARTAN POTASSIUM 25 MG TABLET PO SCH (09:24)
[2018-05-10] MEDS: EZETIMIBE 10 MG TABLET (FP) PO SCH (09:24)
[2018-05-10] MEDS: ALLOPURINOL 100 MG TABLET (FP) PO SCH (09:24)
[2018-05-10] MEDS: NIFEdipine E.R 60 MG TABLET (UD) PO SCH (09:24)
[2018-05-10] MEDS: DOCUSATE SODIUM 100 MG CAPSULE (FP) PO SCH (09:24)
[2018-05-10] MEDS: ACETAMINOPHEN 325 MG TABLET (FP) PO PRN (09:25)
[2018-05-10] MEDS: METOPROLOL TARTRATE 50 MG TABLET (FP) PO SCH (09:25)
[2018-05-10] MEDS: MEGESTROL ACETATE 400 MG/10 ML UNIT DOSE CUP PO SCH (09:25)
[2018-05-10] MEDS: MYCOPHENOLATE MOFETIL 500 MG TABLET PO SCH (09:26)
[2018-05-10] MEDS: EMTRICITABINE/TENOFOV ALAFENAM (DESCOVY) TABLET PO SCH (09:26)
[2018-05-10] MEDS: RALTEGRAVIR POTASSIUM 400 MG TAB PO SCH (09:26)
[2018-05-10] MEDS: TACROLIMUS ANHYDROUS 5 MG CAPSULE PO SCH (09:27)
[2018-05-10] MEDS: CINACALCET HCL 30 MG TAB (FP) PO SCH (09:27)
[2018-05-10] MEDS: PARICALCITOL 1 MCG CAP PO SCH (09:28)
[2018-05-10] MEDS: BRIMONIDINE TARTRATE 0.2% OPHTHALMIC 5 ML BOTTLE OD SCH (09:29)
[2018-05-10] MEDS: SODIUM CHLORIDE IVPB SCH (11:16)
[2018-05-10] MEDS: DAPTOMYCIN IVPB SCH (11:16)
--- NOTE | 2018-05-10 11:46 | PN ---
Progress Note, Physician History of Present Illness: patient stable no new issues - Current Medication List Current Medications: Active Medications Acetaminophen (Tylenol -) 650 mg PO Q6H PRN PRN Reason: PAIN 4-6 Last Admin: 05/10/18 09:25 Dose: 650 mg Allopurinol (Zyloprim -) 100 mg PO DAILY [facility] Last Admin: 05/10/18 09:24 Dose: 100 mg Atorvastatin Calcium (Lipitor -) 80 mg PO HS [facility] Last Admin: 05/09/18 21:52 Dose: 80 mg Brimonidine Tartrate (Alphagan 0.2% -) 1 drop OD BID [facility] Last Admin: 05/10/18 09:29 Dose: 1 drop Cinacalcet (Sensipar -) 60 mg PO DAILY [facility] Last Admin: 05/10/18 09:27 Dose: 60 mg Docusate Sodium (Colace -) 100 mg PO BID [facility] Last Admin: 05/10/18 09:24 Dose: 100 mg Ezetimibe (Zetia -) 10 mg PO DAILY [facility] Last Admin: 05/10/18 09:24 Dose: 10 mg Daptomycin 410 mg/ Sodium (Chloride) 50 mls @ 100 mls/hr IVPB DAILY [facility] Last Admin: 05/10/18 11:16 Dose: 100 mls/hr Latanoprost (Xalatan 0.005% Eye Drops -) 1 drop OD [facility] Last Admin: 05/09/18 21:53 Dose: 1 drop Losartan Potassium (Cozaar -) 25 mg PO DAILY [facility] Last Admin: 05/10/18 09:24 Dose: 25 mg Megestrol Acetate (Megace Oral Suspension -) 800 mg PO DAILY [facility] Last Admin: 05/10/18 09:25 Dose: 800 mg Metoprolol Tartrate (Lopressor -) 25 mg PO BID [facility] Last Admin: 05/10/18 09:25 Dose: 25 mg Mycophenolate Mofetil (Cellcept -) 1,000 mg PO BID [facility] Last Admin: 05/10/18 09:26 Dose: 1,000 mg Nifedipine (Procardia Xl -) 60 mg PO DAILY [facility] Last Admin: 05/10/18 09:24 Dose: 60 mg Paricalcitol (Zemplar -) 1 mcg PO DAILY [facility] Last Admin: 05/10/18 09:28 Dose: 1 mcg Raltegravir (Isentress -) 400 mg PO BID [facility] Last Admin: 05/10/18 09:26 Dose: 400 mg Tacrolimus (Prograf) 4 mg PO HS [facility] Last Admin: 05/09/18 21:54 Dose: 4 mg Tacrolimus (Prograf) 5 mg PO DAILY [facility] Last Admin: 05/10/18 09:27 Dose: 5 mg - Objective Vital Signs: Vital Signs Temperature 98.9 F 05/10/18 06:37 Pulse Rate 75 05/10/18 06:37 Respiratory Rate 18 05/10/18 06:37 Blood Pressure 161/91 05/10/18 06:37 O2 Sat by Pulse Oximetry (%) 97 05/09/18 09:00 Constitutional: Yes: No Distress, Calm Eyes: Yes: Conjunctiva Clear Neck: Yes: Supple, Trachea Midline Cardiovascular: Yes: Regular Rate and Rhythm Gastrointestinal: Yes: Normal Bowel Sounds, Soft Musculoskeletal: Yes: WNL Extremities: Yes: Other Wound/Incision: Yes: Dressing Dry and Intact Neurological: Yes: Alert, Oriented Psychiatric: Yes: Alert, Oriented Labs: CBC, BMP 05/05/18 06:26 05/09/18 06:00 INR, PTT INR 1.27 (0.83-1.09) H 05/02/18 07:40 Assessment/Plan CKD kidney tranplant HIV HTN . DM cad HLD wound infection vre plan continue abx as planned patient has completed one week need 4 more weeks
--- NOTE | 2018-05-10 12:24 | PN ---
Progress Note (short form) - Note Progress Note: FUV right big toe. vss, Tmax 98.9 +sutures intact, -drainage, -mal odor, normal post op Continue betadine dressing changes till dc. Will follow till DC. [facility]
[2018-05-10 13:32] VITALS: PULSE 78
[2018-05-10 14:36] VITALS: BP 125/80; TEMP 98.4
== END 2018-05-10 19:36 | DRG 256 ==
LOC: SUPCPDRO 16:04 → JER 16:04 → JERBED 18:15 → J5S 22:57 → J8W 05-01 13:54
PROVIDERS: ADMIT Internal Medicine; ATTEND Internal Medicine
PROC: 0Y6P0Z0 Detachment at Right 1st Toe, Complete, Open Approach (ICD-10-PCS; principal; 2018-05-02 11:00)
PROC: 02HV33Z Insertion of Infusion Device into Superior Vena Cava, Percutaneous Approach (ICD-10-PCS; 2018-05-06)
DX: E11.52 Type 2 diabetes mellitus with diabetic peripheral angiopathy with gangrene (principal); I96 Gangrene, not elsewhere classified; Z94.0 Kidney transplant status; N17.9 Acute kidney failure, unspecified; I25.10 Atherosclerotic heart disease of native coronary artery without angina pectoris; E11.621 Type 2 diabetes mellitus with foot ulcer; N28.1 Cyst of kidney, acquired; E78.5 Hyperlipidemia, unspecified; Z21 Asymptomatic human immunodeficiency virus [HIV] infection status; N18.9 Chronic kidney disease, unspecified; I12.9 Hypertensive chronic kidney disease with stage 1 through stage 4 chronic kidney disease, or unspecified chronic kidney disease; M10.9 Gout, unspecified; I48.91 Unspecified atrial fibrillation
CPT/HCPCS: 36415; 36569; 71045-TC-FY; 73630-TC-RT-FY; 73660-TC-FY; 73700-TC-RT; 76776-TC; 77001-TC-FY; 80048; 80053; 80061; 80197; 81003; 81015; 82436; 82550; 82570; 82962; 83605; 83721; 84133; 84300; 85025; 85027; 85610; 85651; 86140; 86359; 86360; 87040; 87070; 87075; 87077; 87186; 87205; 88305-TC; 88311-TC; 93005; 93010; 93306-TC; 93926-TC; 94760; 99282-25; C1751; J0878; J1644; J7030; J7517

== ENCOUNTER 2018-05-11 12:01 | Day surgery (SDC) | payer OTHER ==
[~2018-05-11 12:01] MED LIST: DAPTOMYCIN IVPB SCH; SODIUM CHLORIDE IVPB SCH
[2018-05-11 12:30] LABS: HEMATOCRIT 28.4 % (35.4-49); MCH 27.2 pg (25.7-33.7); MCHC 31.7 g/dl (32.0-35.9); MEAN CELL VOLUME 85.7 fl (80-96); MEAN PLT VOLUME 10.3 fl (7.5-11.1); PLATELET COUNT 279 K/MM3 (134-434); RBC 3.32 M/mm3 (4.00-5.60); RDW 17.6 % (11.9-15.9)
[2018-05-11 12:55] LABS: ANION GAP 8 MMOL/L (8-16); BLOOD UREA NITROGEN 30 mg/dL (7-18); CALCIUM 8.9 mg/dL (8.5-10.1); CHLORIDE 112 mmol/L (98-107); CO2 19 mmol/L (21-32); CREATININE 1.8 mg/dL (0.55-1.3); GLUCOSE,RANDOM 94 mg/dL (74-106); POTASSIUM 4.7 mmol/L (3.5-5.1); SODIUM 140 mmol/L (136-145)
[2018-05-11 13:29] VITALS: PULSE 77; TEMP 98.4
[2018-05-11 14:57] VITALS: BP 145/71
== END 2018-05-11 14:40 ==
LOC: JINFUSION 12:01
PROVIDERS: ATTEND Internal Medicine Infectious Disease
DX: E11.621 Type 2 diabetes mellitus with foot ulcer (principal); I96 Gangrene, not elsewhere classified; I12.9 Hypertensive chronic kidney disease with stage 1 through stage 4 chronic kidney disease, or unspecified chronic kidney disease; N18.9 Chronic kidney disease, unspecified; Z21 Asymptomatic human immunodeficiency virus [HIV] infection status
CPT/HCPCS: 36415; 80048; 82550; 82553; 85027; 96365; J0878

== ENCOUNTER 2018-05-12 10:30 | Day surgery (SDC) | payer OTHER ==
[2018-05-12] MEDS ORDERED: DAPTOMYCIN IVPB ONE (11:30)
[2018-05-12] MEDS ORDERED: SODIUM CHLORIDE IVPB ONE (11:30)
[2018-05-12 11:49] VITALS: BP 145/84; PULSE 76; TEMP 98.4
== END 2018-05-12 11:35 ==
LOC: JINFUSION 10:30
PROVIDERS: ATTEND Internal Medicine Infectious Disease
DX: E11.621 Type 2 diabetes mellitus with foot ulcer (principal); E11.52 Type 2 diabetes mellitus with diabetic peripheral angiopathy with gangrene; I12.9 Hypertensive chronic kidney disease with stage 1 through stage 4 chronic kidney disease, or unspecified chronic kidney disease; N18.9 Chronic kidney disease, unspecified; Z21 Asymptomatic human immunodeficiency virus [HIV] infection status
CPT/HCPCS: 96365; J0878

== ENCOUNTER 2018-05-13 10:38 | Day surgery (SDC) | payer OTHER ==
[~2018-05-13 10:38] MED LIST changes: +DAPTOMYCIN IVPB ONE; -DAPTOMYCIN IVPB SCH; +SODIUM CHLORIDE IVPB ONE; -SODIUM CHLORIDE IVPB SCH
[2018-05-13 11:16] VITALS: PULSE 78; TEMP 99
[2018-05-13 11:49] VITALS: BP 109/70
== END 2018-05-13 11:53 | disposition home or self-care (01) ==
LOC: JASU-ENDO 10:38 → J7W 10:38 → JINFUSION 10:38 → JASU-ENDO 11:53
PROVIDERS: ATTEND Internal Medicine Infectious Disease
DX: E11.621 Type 2 diabetes mellitus with foot ulcer (principal); E11.52 Type 2 diabetes mellitus with diabetic peripheral angiopathy with gangrene; I12.9 Hypertensive chronic kidney disease with stage 1 through stage 4 chronic kidney disease, or unspecified chronic kidney disease; N18.9 Chronic kidney disease, unspecified; Z21 Asymptomatic human immunodeficiency virus [HIV] infection status
CPT/HCPCS: 96365; J0878

== ENCOUNTER 2018-05-14 10:13 | Day surgery (SDC) | payer OTHER ==
[2018-05-14] MEDS ORDERED: DAPTOMYCIN IVPB ONE (11:30)
[2018-05-14] MEDS ORDERED: SODIUM CHLORIDE IVPB ONE (11:30)
[2018-05-14 12:53] VITALS: BP 146/84; PULSE 76; TEMP 98
== END 2018-05-14 13:18 ==
LOC: J7W 10:13 → JINFUSION 10:13
PROVIDERS: ATTEND Internal Medicine Infectious Disease
PROC: 3E033GC Introduction of Other Therapeutic Substance into Peripheral Vein, Percutaneous Approach (ICD-10-PCS; principal; 2018-05-14)
DX: E11.621 Type 2 diabetes mellitus with foot ulcer (principal); E11.52 Type 2 diabetes mellitus with diabetic peripheral angiopathy with gangrene; I12.9 Hypertensive chronic kidney disease with stage 1 through stage 4 chronic kidney disease, or unspecified chronic kidney disease; N18.9 Chronic kidney disease, unspecified; Z21 Asymptomatic human immunodeficiency virus [HIV] infection status
CPT/HCPCS: 96365; J0878

== ENCOUNTER 2018-05-15 10:27 | Day surgery (SDC) | payer OTHER ==
[2018-05-15] MEDS ORDERED: DAPTOMYCIN IVPB ONE (11:00)
[2018-05-15] MEDS ORDERED: SODIUM CHLORIDE IVPB ONE (11:00)
[2018-05-15 11:08] VITALS: TEMP 99.2
[2018-05-15 13:04] VITALS: BP 172/87; PULSE 92
== END 2018-05-15 13:00 | disposition home or self-care (01) ==
LOC: JINFUSION 10:27 → J7W 10:28 → JINFUSION 13:00
PROVIDERS: ATTEND Internal Medicine Infectious Disease
PROC: 3E033GC Introduction of Other Therapeutic Substance into Peripheral Vein, Percutaneous Approach (ICD-10-PCS; principal; 2018-05-15)
DX: E11.621 Type 2 diabetes mellitus with foot ulcer (principal); E11.52 Type 2 diabetes mellitus with diabetic peripheral angiopathy with gangrene; I12.9 Hypertensive chronic kidney disease with stage 1 through stage 4 chronic kidney disease, or unspecified chronic kidney disease; N18.9 Chronic kidney disease, unspecified; Z21 Asymptomatic human immunodeficiency virus [HIV] infection status
CPT/HCPCS: 96365; J0878

== ENCOUNTER 2018-05-16 10:51 | Day surgery (SDC) | payer OTHER ==
[2018-05-16 11:31] VITALS: TEMP 97.8
[2018-05-16 12:36] VITALS: BP 102/72; PULSE 77
== END 2018-05-16 12:30 | disposition home or self-care (01) ==
LOC: JINFUSION 10:51
PROVIDERS: ATTEND Internal Medicine Infectious Disease
PROC: 3E033GC Introduction of Other Therapeutic Substance into Peripheral Vein, Percutaneous Approach (ICD-10-PCS; principal; 2018-05-16)
DX: E11.621 Type 2 diabetes mellitus with foot ulcer (principal); E11.52 Type 2 diabetes mellitus with diabetic peripheral angiopathy with gangrene; I12.9 Hypertensive chronic kidney disease with stage 1 through stage 4 chronic kidney disease, or unspecified chronic kidney disease; N18.9 Chronic kidney disease, unspecified; Z21 Asymptomatic human immunodeficiency virus [HIV] infection status
CPT/HCPCS: 96365; J0878

== ENCOUNTER 2018-05-17 10:26 | Day surgery (SDC) | payer OTHER ==
[2018-05-17 11:08] VITALS: TEMP 98.5
[2018-05-17] MEDS ORDERED: SODIUM CHLORIDE IVPB ONE (11:30)
[2018-05-17] MEDS ORDERED: DAPTOMYCIN IVPB ONE (11:30)
[2018-05-17 12:20] VITALS: BP 138/80; PULSE 80
== END 2018-05-17 12:18 | disposition home or self-care (01) ==
LOC: JINFUSION 10:26
PROVIDERS: ATTEND Internal Medicine Infectious Disease
DX: E11.621 Type 2 diabetes mellitus with foot ulcer (principal); E11.52 Type 2 diabetes mellitus with diabetic peripheral angiopathy with gangrene; I12.9 Hypertensive chronic kidney disease with stage 1 through stage 4 chronic kidney disease, or unspecified chronic kidney disease; N18.9 Chronic kidney disease, unspecified; Z21 Asymptomatic human immunodeficiency virus [HIV] infection status
CPT/HCPCS: 96365; J0878

== ENCOUNTER → 2018-05-18 | Day surgery (SDC) | payer OTHER ==
[2018-05-18 11:05] LABS: HEMATOCRIT 29.7 % (35.4-49); HEMOGLOBIN 9.5 GM/dL (11.7-16.9); MCH 27.1 pg (25.7-33.7); MCHC 31.9 g/dl (32.0-35.9); MEAN CELL VOLUME 84.8 fl (80-96); MEAN PLT VOLUME 10.4 fl (7.5-11.1); PLATELET COUNT 333 K/MM3 (134-434); RDW 17.2 % (11.9-15.9); WHITE BLOOD COUNT 3.7 K/mm3 (4.0-10.0)
[2018-05-18 11:19] VITALS: TEMP 99
[2018-05-18 11:33] LABS: ANION GAP 7 MMOL/L (8-16); BLOOD UREA NITROGEN 18 mg/dL (7-18); CALCIUM 9.5 mg/dL (8.5-10.1); CHLORIDE 112 mmol/L (98-107); CO2 20 mmol/L (21-32); CREATININE 1.5 mg/dL (0.55-1.3); GLUCOSE,RANDOM 92 mg/dL (74-106); POTASSIUM 4.3 mmol/L (3.5-5.1); SODIUM 139 mmol/L (136-145)
[2018-05-18 11:51] VITALS: BP 149/75; PULSE 75
== END | disposition home or self-care (01) ==
LOC: JINFUSION 10:32
PROVIDERS: ATTEND Internal Medicine Infectious Disease
DX: E11.621 Type 2 diabetes mellitus with foot ulcer (principal); E11.52 Type 2 diabetes mellitus with diabetic peripheral angiopathy with gangrene; I12.9 Hypertensive chronic kidney disease with stage 1 through stage 4 chronic kidney disease, or unspecified chronic kidney disease; N18.9 Chronic kidney disease, unspecified; Z21 Asymptomatic human immunodeficiency virus [HIV] infection status
CPT/HCPCS: 36415; 80048; 82550; 82553; 85027; 96365; J0878

== ENCOUNTER 2018-05-19 10:35 | Day surgery (SDC) | payer OTHER ==
[2018-05-19 12:46] VITALS: BP 143/85; PULSE 74
== END 2018-05-19 12:20 | disposition home or self-care (01) ==
LOC: JINFUSION 10:35
PROVIDERS: ATTEND Internal Medicine Infectious Disease
DX: E11.621 Type 2 diabetes mellitus with foot ulcer (principal); E11.52 Type 2 diabetes mellitus with diabetic peripheral angiopathy with gangrene; I12.9 Hypertensive chronic kidney disease with stage 1 through stage 4 chronic kidney disease, or unspecified chronic kidney disease; N18.9 Chronic kidney disease, unspecified; Z21 Asymptomatic human immunodeficiency virus [HIV] infection status
CPT/HCPCS: 96365; J0878

== ENCOUNTER 2018-05-20 10:40 | Day surgery (SDC) | payer OTHER ==
[2018-05-20 11:18] VITALS: TEMP 99.1
[2018-05-20 13:28] VITALS: BP 158/74; PULSE 74
== END 2018-05-20 12:25 | disposition home or self-care (01) ==
LOC: JINFUSION 10:40
PROVIDERS: ATTEND Internal Medicine Infectious Disease
DX: E11.621 Type 2 diabetes mellitus with foot ulcer (principal); E11.52 Type 2 diabetes mellitus with diabetic peripheral angiopathy with gangrene; I12.9 Hypertensive chronic kidney disease with stage 1 through stage 4 chronic kidney disease, or unspecified chronic kidney disease; N18.9 Chronic kidney disease, unspecified; Z21 Asymptomatic human immunodeficiency virus [HIV] infection status
CPT/HCPCS: 96365; J0878

== ENCOUNTER 2018-05-21 10:34 | Day surgery (SDC) | payer OTHER ==
[2018-05-21] MEDS ORDERED: SODIUM CHLORIDE IVPB ONE (12:00)
[2018-05-21] MEDS ORDERED: DAPTOMYCIN IVPB ONE (12:00)
[2018-05-21 17:02] VITALS: BP 144/69; PULSE 72; TEMP 97.9
== END 2018-05-21 14:15 | disposition home or self-care (01) ==
LOC: JINFUSION 10:34 → J7W 10:35 → JINFUSION 14:15
PROVIDERS: ATTEND Internal Medicine Infectious Disease
DX: E11.621 Type 2 diabetes mellitus with foot ulcer (principal); E11.52 Type 2 diabetes mellitus with diabetic peripheral angiopathy with gangrene; I12.9 Hypertensive chronic kidney disease with stage 1 through stage 4 chronic kidney disease, or unspecified chronic kidney disease; N18.9 Chronic kidney disease, unspecified; Z21 Asymptomatic human immunodeficiency virus [HIV] infection status
CPT/HCPCS: 96365; J0878

== ENCOUNTER 2018-05-22 10:22 | Day surgery (SDC) | payer OTHER ==
[2018-05-22] MEDS ORDERED: DAPTOMYCIN IVPB ONE (11:00)
[2018-05-22] MEDS ORDERED: SODIUM CHLORIDE IVPB ONE (11:00)
[2018-05-22 12:32] VITALS: BP 112/76; PULSE 78; TEMP 98.2
== END 2018-05-22 12:47 | disposition home or self-care (01) ==
LOC: JINFUSION 10:22 → J7W 10:22 → JINFUSION 12:47
PROVIDERS: ATTEND Internal Medicine Infectious Disease
DX: E11.621 Type 2 diabetes mellitus with foot ulcer (principal); E11.52 Type 2 diabetes mellitus with diabetic peripheral angiopathy with gangrene; I12.9 Hypertensive chronic kidney disease with stage 1 through stage 4 chronic kidney disease, or unspecified chronic kidney disease; N18.9 Chronic kidney disease, unspecified; Z21 Asymptomatic human immunodeficiency virus [HIV] infection status
CPT/HCPCS: 96365; 96366; J0878

== ENCOUNTER 2018-05-23 10:35 | Day surgery (SDC) | payer OTHER ==
[2018-05-23 12:15] VITALS: BP 128/79; PULSE 77; TEMP 98.6
== END 2018-05-23 12:20 | disposition hospice, inpatient (51) ==
LOC: JINFUSION 10:35
PROVIDERS: ATTEND Internal Medicine Infectious Disease
DX: E11.621 Type 2 diabetes mellitus with foot ulcer (principal); E11.52 Type 2 diabetes mellitus with diabetic peripheral angiopathy with gangrene; I12.9 Hypertensive chronic kidney disease with stage 1 through stage 4 chronic kidney disease, or unspecified chronic kidney disease; N18.9 Chronic kidney disease, unspecified; Z21 Asymptomatic human immunodeficiency virus [HIV] infection status
CPT/HCPCS: 96365; J0878

== ENCOUNTER 2018-05-24 10:29 | Day surgery (SDC) | payer OTHER | END 2018-05-24 12:01 | disposition home or self-care (01) | LOC: JINFUSION 10:29 ==

== ENCOUNTER 2018-05-25 10:20 | Day surgery (SDC) | payer OTHER ==
[2018-05-25 10:51] LABS: HEMATOCRIT 29.6 % (35.4-49); HEMOGLOBIN 9.4 GM/dL (11.7-16.9); MCH 27.2 pg (25.7-33.7); MCHC 31.7 g/dl (32.0-35.9); MEAN CELL VOLUME 85.7 fl (80-96); MEAN PLT VOLUME 9.7 fl (7.5-11.1); PLATELET COUNT 295 K/MM3 (134-434); RBC 3.45 M/mm3 (4.00-5.60); RDW 17.4 % (11.9-15.9); WHITE BLOOD COUNT 4.2 K/mm3 (4.0-10.0)
[2018-05-25 11:26] LABS: ANION GAP 9 MMOL/L (8-16); BLOOD UREA NITROGEN 20 mg/dL (7-18); CALCIUM 8.7 mg/dL (8.5-10.1); CHLORIDE 110 mmol/L (98-107); CO2 20 mmol/L (21-32); CREATININE 1.7 mg/dL (0.55-1.3); GLUCOSE,RANDOM 97 mg/dL (74-106); POTASSIUM 4.5 mmol/L (3.5-5.1); SODIUM 139 mmol/L (136-145)
[2018-05-25 11:49] VITALS: TEMP 99.3
[2018-05-25 12:31] VITALS: BP 124/64; PULSE 74
== END 2018-05-25 12:31 ==
LOC: JINFUSION 10:20
PROVIDERS: ATTEND Internal Medicine Infectious Disease
DX: E11.621 Type 2 diabetes mellitus with foot ulcer (principal); E11.52 Type 2 diabetes mellitus with diabetic peripheral angiopathy with gangrene; N18.9 Chronic kidney disease, unspecified; Z21 Asymptomatic human immunodeficiency virus [HIV] infection status
CPT/HCPCS: 36415; 80048; 82550; 85027; 96365; J0878

== ENCOUNTER 2018-05-26 10:27 | Day surgery (SDC) | payer OTHER | END 2018-05-26 12:00 | LOC: JINFUSION 10:27 ==

== ENCOUNTER 2018-05-27 10:22 | Day surgery (SDC) | payer OTHER | END 2018-05-27 12:30 | disposition hospice, inpatient (51) | LOC: JINFUSION 10:22 ==

== ENCOUNTER 2018-05-28 10:45 | Day surgery (SDC) | payer OTHER ==
[2018-05-28] MEDS ORDERED: DAPTOMYCIN IVPB ONE (11:30)
[2018-05-28] MEDS ORDERED: SODIUM CHLORIDE IVPB ONE (11:30)
[2018-05-28 12:53] VITALS: BP 134/75; PULSE 89; TEMP 98.1
== END 2018-05-28 13:26 | disposition home or self-care (01) ==
LOC: JINFUSION 10:45 → J7W 10:53 → JINFUSION 13:26
PROVIDERS: ATTEND Internal Medicine Infectious Disease
DX: E11.621 Type 2 diabetes mellitus with foot ulcer (principal); E11.52 Type 2 diabetes mellitus with diabetic peripheral angiopathy with gangrene; N18.9 Chronic kidney disease, unspecified; Z21 Asymptomatic human immunodeficiency virus [HIV] infection status
CPT/HCPCS: 96365; 96366; J0878

== ENCOUNTER 2018-05-29 10:12 | Day surgery (SDC) | payer OTHER | END 2018-05-29 13:30 | LOC: JINFUSION 10:12 → J7W 10:13 → JINFUSION 13:30 ==

== ENCOUNTER 2018-05-30 10:43 | Day surgery (SDC) | payer OTHER | END 2018-05-30 12:01 | disposition home or self-care (01) | LOC: JINFUSION 10:43 ==

== ENCOUNTER 2018-05-31 10:30 | Day surgery (SDC) | payer OTHER | END 2018-05-31 12:18 | disposition home or self-care (01) | LOC: JINFUSION 10:30 ==

== ENCOUNTER 2018-06-01 10:41 | Day surgery (SDC) | payer OTHER | END 2018-06-01 12:55 | LOC: JINFUSION 10:41 ==

== ENCOUNTER 2018-06-02 10:40 | Day surgery (SDC) | payer OTHER ==
[2018-06-02 13:22] VITALS: BP 138/66; PULSE 79; TEMP 98.9
== END 2018-06-02 12:30 ==
LOC: JINFUSION 10:40
PROVIDERS: ATTEND Internal Medicine Infectious Disease
DX: E11.621 Type 2 diabetes mellitus with foot ulcer (principal); E11.52 Type 2 diabetes mellitus with diabetic peripheral angiopathy with gangrene; N18.9 Chronic kidney disease, unspecified; Z21 Asymptomatic human immunodeficiency virus [HIV] infection status
CPT/HCPCS: 96365; J0878

== ENCOUNTER 2018-06-03 10:30 | Day surgery (SDC) | payer OTHER | END 2018-06-03 11:30 | disposition other institution (70) | LOC: JINFUSION 10:30 ==

== ENCOUNTER 2018-06-03 11:30 | Emergency (ER) | payer OTHER ==
[2018-06-03] MEDS ORDERED: SODIUM CHLORIDE IVPB ONE (12:20)
[2018-06-03] MEDS ORDERED: DAPTOMYCIN IVPB ONE (12:20)
--- NOTE | 2018-06-03 12:20 | PDOC ---
History of Present Illness - History of Present Illness Initial Comments: 06/03/18 13:09 The patient is a 72 year old male, with a PMH of Afib (on eliquis), CKD s/p renal transplant on immunosuppressants, renal cyst, diabetes mellitus, foot ulcer, HIV, HLD, HTN, PAD, gout, who presents today from [place] for hypotension at infusion center. 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 During infusion visit today, the patient was hypotensive at 86/34 per records, did not get his IV abx (currently week 1 out of 5 complete). The patient states that he has been feeling general weakness and mild subjective chills this morning. +dizziness with BM this morning. Patient was sent from infusion center for further evaluation and treatment. ID: Dr Loyola <Bridgett Albarado - Last Filed: 06/03/18 13:10> - General History Source: Patient Exam Limitations: No Limitations <Rachelle Franklin - Last Filed: 06/03/18 14:23> - General Chief Complaint: Lightheaded Stated Complaint: Lightheaded Time Seen by Provider: 06/03/18 11:50 Past History <Bridgett Albarado - Last Filed: 06/03/18 13:10> - Past Medical History Cardiac Disorders: Yes (CAD PAD S/P STENT AFIB) COPD: No Diabetes: Yes HTN: Yes - Immunization History Immunization Up to Date: No - Suicide/Smoking/Psychosocial Hx Smoking History: Unknown if ever smoked Have you smoked in the past 12 months: No Information on smoking cessation initiated: No Hx Alcohol Use: No Drug/Substance Use Hx: No Substance Use Type: Alcohol Hx Substance Use Treatment: No <Rachelle Franklin - Last Filed: 06/03/18 14:23> - Past Medical History Allergies/Adverse Reactions: Allergies Allergy/AdvReac Type Severity Reaction Status Date / Time shellfish derived Allergy Verified 04/28/18 04:57 Home Medications: Ambulatory Orders Allopurinol [Zyloprim -] 100 mg PO DAILY 04/27/18 Aspirin [ASA -] 81 mg PO DAILY 04/27/18 Atorvastatin Ca [Lipitor] 80 mg PO HS 04/27/18 Brimonidine Tartrate [Alphagan 0.2% -] 1 drop BID 04/27/18 Cinacalcet HCl [Sensipar] 60 mg PO DAILY 04/27/18 Clopidogrel Bisulfate [Plavix] 75 mg PO DAILY 04/27/18 Docusate Sodium [Colace] 100 mg PO BID 04/27/18 Ezetimibe 10 mg PO DAILY 04/27/18 Latanoprost 0.005% Eye Drops [Xalatan 0.005% Eye Drops -] 1 drop HS 04/27/18 Losartan Potassium 25 mg PO DAILY 04/27/18 Megestrol Acetate 20 ml PO DAILY 04/27/18 Metoprolol Tartrate [Lopressor] 25 mg PO BID 04/27/18 Mycophenolate Mofetil 1,000 mg PO BID 04/27/18 Nifedipine ER [Procardia XL -] 60 mg PO DAILY 04/27/18 Paricalcitol 1 mcg PO DAILY 04/27/18 Raltegravir [Isentress] 400 mg PO BID 04/27/18 Acetaminophen [Tylenol .Regular Strength -] 650 mg PO Q6H PRN tablet 05/06/18 Daptomycin [Cubicin (Restricted To Id) -] 410 mg IVPB DAILY vial 05/06/18 Emtricitabine/Tenofov Alafenam [Descovy 200-25 mg Tablet (Nf)] 1 each PO DAILY tablet 05/06/18 Tacrolimus Anhydrous [Prograf] 4 mg PO BID capsule 05/06/18 Cinacalcet HCl [Sensipar] 60 mg PO DAILY 06/03/18 Emtricitabine/Tenofov Alafenam [Descovy 200-25 mg Tablet (Nf)] 1 each PO DAILY 06/03/18 Review of Systems - Review of Systems Comments:: 06/03/18 13:09 GENERAL/CONSTITUTIONAL: (+)general weakness. (+)chills. No fever. no sweats. HEAD, EYES, EARS, NOSE AND THROAT: No change in vision or hearing. No congestion. +dizziness CARDIOVASCULAR: No chest pain or palpitations, syncope or edema. RESPIRATORY: No SOB, cough, wheezing, or hemoptysis. GASTROINTESTINAL No nausea/vomiting. No diarrhea or constipation. No bloody stools. GENITOURINARY: No hematuria, dysuria, frequency, urgency or other changes. MUSCULOSKELETAL: No joint or muscle swelling or pain. No decreased range of motion. No neck or back pain. SKIN: No rash or changes in skin color or lesions. +chronic foot/toe wound post amputation NEUROLOGIC: alert and oriented appropriately No headache, loss of consciousness, or change in strength/sensation. No focal weakness HEMATOLOGIC/LYMPHATIC: No anemia, easy bruising/bleeding ALLERGIC/IMMUNOLOGIC: No allergies PSYCH: no anxiety/depression All other systems reviewed and negative, or as documented in HPI. <JamarmandaBridgett gauthier - Last Filed: 06/03/18 13:10> *Physical Exam - Vital Signs Last Vital Signs Temp Pulse Resp BP Pulse Ox 97.7 F 71 16 119/74 98 06/03/18 11:56 06/03/18 11:56 06/03/18 11:56 06/03/18 11:56 06/03/18 11:56 - Physical Exam Comments: 06/03/18 13:09 General: Well appearing, awake and alert, NAD. HEENT: NCAT, PERRL, EOMI, clear conjunctiva, anicteric, moist mucus membranes, clear oropharynx, no oral lesions.. Neck: neck supple, FROM Resp: CTAB, normal and even respirations, no respiratory distress CVS: RRR, no murmurs, 2+ peripheral pulses throughout, no peripheral edema Abdomen: soft, NTND, no rebound or guarding. No CVAT. Back: nontender, normal inspection and ROM MSK: no edema, HEIN x4, ROM intact. No clubbing or cyanosis. normal bulk and tone. Extremities: (+)left upper arm fistula, palp thrill not in use. (+)right upper extremity PICC line in place. (+)right great toe amputation, dressing in place, dry skin, no sign of infection such as erythema, warmth or purulence. no calf tenderness Neuro: alert, oriented appropriately; no focal neurologic deficits Skin: (+)dry skin. warm and well perfused, cap refill <2 sec, normal color <PerBridgett - Last Filed: 06/03/18 13:10> - Vital Signs Last Vital Signs Temp Pulse Resp BP Pulse Ox 97.7 F 71 16 119/74 98 06/03/18 11:56 06/03/18 11:56 06/03/18 11:56 06/03/18 11:56 06/03/18 11:56 <Rachelle Franklin - Last Filed: 06/03/18 14:23> ED Treatment Course - LABORATORY CBC & Chemistry Diagram: 06/03/18 12:22 06/03/18 12:06 - ADDITIONAL ORDERS Additional order review: Laboratory Results 06/03/18 06/03/18 06/03/18 12:26 12:16 12:06 Sodium 137 Potassium 4.4 Chloride 108 H Carbon Dioxide 22 Anion Gap 6 L BUN 22 H Creatinine 1.5 H Creat Clearance w eGFR 46.00 Random Glucose 107 H Calcium 8.9 Total Bilirubin 0.4 AST 14 L ALT 11 L Alkaline Phosphatase 47 Creatine Kinase Cancelled Cancelled Troponin I Cancelled Total Protein 6.7 Albumin 2.9 L 06/03/18 12:22 RBC 3.14 L MCV 85.1 MCHC 30.1 L RDW 17.7 H MPV 10.7 Neutrophils % 38.9 L Lymphocytes % 25.0 D Monocytes % 34.7 H Eosinophils % 1.2 Basophils % 0.2 <Bridgett Albarado - Last Filed: 06/03/18 13:10> - LABORATORY CBC & Chemistry Diagram: 06/03/18 12:22 06/03/18 12:06 - RADIOLOGY Radiology Studies Ordered: Category Date Time Status CHEST PA & LAT [RAD] Stat Radiology 06/03/18 12:15 Ordered <Rachelle Franklin - Last Filed: 06/03/18 14:23> Medical Decision Making - Medical Decision Making 06/03/18 13:26 I, Rachelle Franklin MD, attest that this document has been prepared under my direction and personally reviewed by me in its entirety. I further attest, that it accurately reflects all work, treatment, procedures and medical decision -making performed by me. See HPI for details Vital signs reviewed, wnl. normotensive. Prior notes reviewed, including admissions, discharges and consultations. laboratory results and imaging reviewed, basic labs and lytes wnl, notable for baseline anemia, no bleeding episodes or acute significant changes of H/H compared to prior CXR_prominent interstitial lung markings/hilum in right lung field, no chest congestion or effusion. Cardiac panel_neg CK levels, neg trop so doubt cardiac. EKG normal sinus rhythm at 72 bpm, no interval abnormalities, narrow QRS, ST and T wave segments and morphology normal. Nonspecific T wave abnormalities with TWI in I, AVL, similar to prior EKGs and unchanged. ED course: no acute events, nontoxic appearing and comfortable. VS here normal, no episodes of hypotension; brief episode likely due to taking all his morning meds which includes antihypertensives vs orthostatics, none here but did have episode when on the toilet that could indicate a vasovagal component.. Spoke with [facility] Nair regarding his visit, agreeable with plan and discharge, got his dose of daptomycin here appropriate dosing. Hydration encouraged, polypharmacy component. rt great toe amputation, wound healing, no s/s infection, already on appropriate abx and course to be completed via his pic[facility] infusion. Pt to be discharged in stable condition. Patient and family made aware of impression and plan, return precautions discussed (including but not limited to worsening pain or symptoms), fevers, or signs of infection, chest pain, respiratory distress, inability to tolerate oral intake, dehydration, syncope, or neurologic changes). Follow up with PMD Dr Morris and/or [facility] specialist as recommended, follow up information provided, take medications as instructed for duration of time. continue with supportive care, avoid triggers and precipitants. All questions answered to patient's satisfaction and expressed understanding and comfort with this. Patient does not suffer from an acute life- threatening medical condition at this time she is safe for outpatient follow- up. 06/03/18 13:28 06/03/18 13:31 06/03/18 14:15 <Rachelle Franklin - Last Filed: 06/03/18 14:23> *DC/Admit/Observation/Transfer - Attestations Scribe Attestion: 06/03/18 13:10 Documentation prepared by Bridgett Albarado, acting as medical technicians for Rachelle Franklin MD. <Bridgett Albarado - Last Filed: 06/03/18 13:10> - Discharge Dispostion Decision to Admit order: No <Rachelle Franklin - Last Filed: 06/03/18 14:23> Diagnosis at time of Disposition: Encounter for medical screening examination, Dizziness - Discharge Dispostion Disposition: HOME Condition at time of disposition: Stable - Referrals Referrals: Pascual Loyola MD [Primary Care Provider] - Helga Morris MD [Staff Physician] - - Patient Instructions Printed Discharge Instructions: How to Monitor Your Blood Pressure at Home, DI for Dizziness-Nonvertigo Additional Instructions: 1) Please follow-up with your primary care doctor in the next 1-2 days. Please call tomorrow for for any urgent issues. please follow with your infusion center and Dr Loyola for your toe infection of the bone. you received your daptomycin today. 2) You were given a copy of the tests performed today. Please bring the results with you and review them with your primary care doctor. Your laboratory / imaging results were normal, baseline anemia and normal electrolytes. 3) If you have any worsening of symptoms or any other concerns please return to the ED immediately. Return if worsening symptoms including fevers, headache, vomiting, visual or hearing disturbances, abdominal pain, chest pain, shortness of breath, syncope, dehydration, inability to take things by mouth/vomiting, altered mental status, or worsening concerning symptoms. 4) Please continue taking your home medications as directed. your blood pressure medications can cause you to have transient drop in blood pressure, here it has normalized. Stay well hydrated and rest adequately. an appointment. If you cannot follow-up with your primary care doctor please return to the ED - Post Discharge Activity
[2018-06-03 12:27] VITALS: PULSE 71; BMI 22.5
[2018-06-03] MEDS ORDERED: SODIUM CHLORIDE 0.9% 500 ML INFUS.BAG IV ONE (12:45)
[2018-06-03 12:59] LABS: ALBUMIN 2.9 g/dl (3.4-5.0); ALK PHOS 47 U/L (45-117); ANION GAP 6 MMOL/L (8-16); BILIRUBIN,TOTAL 0.4 mg/dL (0.2-1); BLOOD UREA NITROGEN 22 mg/dL (7-18); CALCIUM 8.9 mg/dL (8.5-10.1); CHLORIDE 108 mmol/L (98-107); CO2 22 mmol/L (21-32); CREATININE 1.5 mg/dL (0.55-1.3); GLUCOSE,RANDOM 107 mg/dL (74-106); POTASSIUM 4.4 mmol/L (3.5-5.1); SGOT/AST 14 U/L (15-37); SGPT/ALT 11 U/L (13-61); SODIUM 137 mmol/L (136-145); TOT PROT 6.7 g/dl (6.4-8.2)
[2018-06-03 13:00] LABS: BASO % 0.2 % (0-2.0); EOS % 1.2 % (0-4.5); HEMATOCRIT 26.7 % (35.4-49); MCH 25.6 pg (25.7-33.7); MCHC 30.1 g/dl (32.0-35.9); MEAN CELL VOLUME 85.1 fl (80-96); MEAN PLT VOLUME 10.7 fl (7.5-11.1); MONO % 34.7 % (3.8-10.2); NEUT % 38.9 % (42.8-82.8); PLATELET COUNT 249 K/MM3 (134-434); RBC 3.14 M/mm3 (4.00-5.60); RDW 17.7 % (11.9-15.9); WHITE BLOOD COUNT 4.3 K/mm3 (4.0-10.0)
[2018-06-03 13:50] LABS: ANISOCYTOSIS 1+; MACROCYTOSIS 0; PLATELET ESTIMATE NORMAL
[2018-06-03 14:01] VITALS: BP 120/78; TEMP 98.3
--- NOTE | 2018-06-06 11:19 | EKG ---
Test Reason : Blood Pressure : / mmHG Vent. Rate : 072 BPM Atrial Rate : 072 BPM P-R Int : 170 ms QRS Dur : 096 ms QT Int : 386 ms P-R-T Axes : 041 005 094 degrees QTc Int : 422 ms NORMAL SINUS RHYTHM WITH SINUS ARRHYTHMIA MODERATE VOLTAGE CRITERIA FOR LVH, MAY BE NORMAL VARIANT CANNOT RULE OUT SEPTAL INFARCT (CITED ON OR BEFORE 30-APR-2018) T WAVE ABNORMALITY, CONSIDER LATERAL ISCHEMIA ABNORMAL ECG WHEN COMPARED WITH ECG OF 30-APR-2018 10:01, T WAVE VARIATION Confirmed by CLARENCE GUERRERO MD ([id number]) on 06/06/2018 11:19:28 AM Referred By: Confirmed By:CLARENCE GUERRERO MD
== END 2018-06-03 15:24 | disposition home or self-care (01) ==
LOC: JER 11:30
PROC: 3E0337Z Introduction of Electrolytic and Water Balance Substance into Peripheral Vein, Percutaneous Approach (ICD-10-PCS; principal; 2018-06-03)
PROC: 3E03329 Introduction of Other Anti-infective into Peripheral Vein, Percutaneous Approach (ICD-10-PCS; 2018-06-03)
DX: R42 Dizziness and giddiness (principal); I25.10 Atherosclerotic heart disease of native coronary artery without angina pectoris; I48.91 Unspecified atrial fibrillation; Z79.01 Long term (current) use of anticoagulants; E11.22 Type 2 diabetes mellitus with diabetic chronic kidney disease; N18.9 Chronic kidney disease, unspecified; Z94.0 Kidney transplant status
CPT/HCPCS: 36415; 71046-TC-FY; 80053; 82550; 84484; 85025; 93005; 93010; 96365; 99284-25; J0878